=== PATIENT | male | born 1950 | race Caucasian/White ===

== ENCOUNTER 2017-01-21 09:04 | Outpatient (CLI) | payer OTHER ==
[2017-01-21 09:41] LABS: ALBUMIN/GLOBULIN RATIO 1.3 (1.0-2.2); BILIRUBIN,TOTAL 0.6 mg/dL (0.2-1.0); BUN - BLOOD UREA NITROGEN 21 mg/dL (6-20); CALCIUM 8.9 mg/dL (8.5-10.3); CARBON DIOXIDE - CO2 28 mmol/L (21-32); CHLORIDE 107 mmol/L (101-111); CHOL/HDL RATIO 2.5 (<5.0); CHOLESTEROL 97 mg/dL; CREATININE 0.9 mg/dL (0.6-1.2); GFR - MDRD 84 (>89); GLUCOSE 104 mg/dL (70-100); HDL CHOLESTEROL 39 mg/dL; LDL/HDL RATIO 1.1 (<3.6); POTASSIUM 4.3 mmol/L (3.5-5.0); SODIUM 141 mmol/L (135-145); TRIGLYCERIDES 86 mg/dL; VLDL CHOLESTEROL 17 mg/dL
== END 2017-01-21 09:05 | disposition home or self-care (01) ==
LOC: LAB 09:04
PROVIDERS: ATTEND Internal Medicine Cardiovascular Disease
DX: E11.69 Type 2 diabetes mellitus with other specified complication (principal); E78.2 Mixed hyperlipidemia
CPT/HCPCS: 36415; 80053; 80061

== ENCOUNTER 2019-04-24 22:58 | Emergency (ER) | payer MEDICARE, OTHER ==
--- NOTE | 2019-04-24 23:28 | ED Physician Documentation ---
PD HPI MALE - Stated complaint Stated Complaint: CANNOT URITNATE - Chief complaint Chief Complaint: Abd Pain - History obtained from History obtained from: Patient, Family - History of Present Illness Timing - onset: Yesterday (morning of ) Timing - details: Gradual onset, Waxing and waning Associated symptoms: Dysuria, Unable to urinate, Hematuria Similar symptoms before: Has not had sx before Recently seen: Not recently seen - Additional information Additional information: increasing difficulty urinating despite sensation of full bladder/urge to urinate. He initially was able to get very small amounts of bloody urine with bearing down but for past few hours his bladder feels increasingly full and associated with increasing suprapubic pain. Denies h/o urinary retention and denies h/o hematuria Review of Systems Constitutional: reports: Reviewed and negative Eyes: reports: Reviewed and negative Ears: reports: Reviewed and negative Nose: reports: Reviewed and negative Throat: reports: Reviewed and negative Cardiac: reports: Reviewed and negative Respiratory: reports: Reviewed and negative GI: reports: Abdominal Pain (suprapubic pressure). denies: Nausea, Vomiting, Constipation, Diarrhea : reports: Dysuria, Unable to Void, Hematuria Skin: reports: Reviewed and negative Musculoskeletal: reports: Reviewed and negative Neurologic: reports: Reviewed and negative PD PAST MEDICAL HISTORY - Past Medical History Past Medical History: Yes Cardiovascular: Hypertension, High cholesterol, [place] - Past Surgical History Past Surgical History: Yes Cardiovascular: Coronary stent - Present Medications Home Medications: Ambulatory Orders Medication Instructions Recorded Confirmed Aspirin Chewable [St Rodolfo 81 mg PO DAILY 04/24/19 04/24/19 Aspirin] Carvedilol [Coreg] 6.25 mg PO BID 04/24/19 04/24/19 Clopidogrel [Plavix] 75 mg PO DAILY 04/24/19 04/24/19 Lisinopril [Prinivil] 10 mg PO DAILY 04/24/19 04/24/19 Lovastatin 40 mg PO DAILY 04/24/19 04/24/19 - Allergies Allergies/Adverse Reactions: Allergies Allergy/AdvReac Type Severity Reaction Status Date / Time No Known Drug Allergies Allergy Verified 04/24/19 23:05 - Living Situation Living Situation: reports: With family Living Arrangement: reports: At home PD ED PE NORMAL - Vitals Vital signs reviewed: Yes - General General: Alert and oriented X 3, Well developed/nourished, Other (appears uncomfortable) - Cardiac Cardiac: RRR, No murmur - Respiratory Respiratory: No respiratory distress, Clear bilaterally - Abdomen Abdomen: Soft, Other (suprapubic fullness and tenderness) - Back Back: No CVA TTP - Derm Derm: Normal color, Warm and dry - Extremities Extremities: No edema - Neuro Neuro: Alert and oriented X 3 Results - Vitals Vitals: Vital Signs - 24 hr 04/24/19 04/25/19 04/25/19 23:03 01:53 03:41 Temperature 36.9 C 36.6 C 36.8 C Heart Rate 81 72 84 Respiratory 20 18 20 Rate Blood Pressure 176/49 H 163/71 H 124/67 O2 Saturation 97 96 98 04/25/19 05:05 Temperature Heart Rate 80 Respiratory 16 Rate Blood Pressure 124/75 O2 Saturation 98 Oxygen O2 Source Room air - Labs Labs: Laboratory Tests 04/24/19 04/24/19 04/24/19 23:35 23:59 23:59 WBC 10.2 RBC 4.31 L Hgb 12.9 L Hct 38.7 L MCV 89.8 MCH 29.9 MCHC 33.3 RDW 13.3 Plt Count 164 MPV 10.0 Neut # (Auto) 8.8 H Lymph # (Auto) 0.5 L [place] # (Auto) 0.8 Eos # (Auto) 0.1 Baso # (Auto) 0.0 Absolute Nucleated RBC 0.00 Nucleated RBC % 0.0 PT 14.3 H INR 1.3 H APTT 28.5 Sodium Potassium Chloride Carbon Dioxide Anion Gap BUN Creatinine Estimated GFR (MDRD) Glucose Calcium Total Bilirubin AST ALT Alkaline Phosphatase Total Protein Albumin Globulin Albumin/Globulin Ratio Lipase Urine Color RED/BLOODY Urine Clarity BLOODY Urine pH Ur Specific [place] Urine Protein Urine Glucose (UA) NEGATIVE Urine Ketones Urine Occult Blood LARGE H Urine Nitrite POSITIVE H Urine Bilirubin NEGATIVE Urine Urobilinogen Ur Leukocyte Esterase MODERATE H Urine RBC TNTC H Urine WBC 6-10 H Ur Squamous Epith Cells FEW Squamous Urine Bacteria Few Ur Microscopic Review INDICATED Urine Culture Comments INDICATED 04/24/19 23:59 WBC RBC Hgb Hct MCV MCH MCHC RDW Plt Count MPV Neut # (Auto) Lymph # (Auto) [place] # (Auto) Eos # (Auto) Baso # (Auto) Absolute Nucleated RBC Nucleated RBC % PT INR APTT Sodium 137 Potassium 4.3 Chloride 103 Carbon Dioxide 25 Anion Gap 9.0 BUN 30 H Creatinine 1.5 H Estimated GFR (MDRD) 46 L Glucose 143 H Calcium 9.0 Total Bilirubin 0.7 AST 20 ALT 27 Alkaline Phosphatase 67 Total Protein 7.5 Albumin 3.6 Globulin 3.9 Albumin/Globulin Ratio 0.9 L Lipase 27 Urine Color Urine Clarity Urine pH Ur Specific [place] Urine Protein Urine Glucose (UA) Urine Ketones Urine Occult Blood Urine Nitrite Urine Bilirubin Urine Urobilinogen Ur Leukocyte Esterase Urine RBC Urine WBC Ur Squamous Epith Cells Urine Bacteria Ur Microscopic Review Urine Culture Comments PD MEDICAL DECISION MAKING - ED course Complexity details: reviewed results, re-evaluated patient, considered differential, d/w patient, d/w family ED course: RN placed 16 Fr. de jesus catheter, over 300 cc grossly bloody output with clots. This resulted in relief of patient's discomfort. The RN then hand-irrigated with Leslie syringe nearly 1 liter, as the output was not getting any clearer (still bloody to the point of being opaque, and with many clots). Towards the end of the liter of irrigation, there was no output despite fluid being irrigated in, and this resulted in return of patient's suprapubic pain and fullness. The catheter was then removed and replaced with a 22 Fr. 3-way catheter. Unfortunately, there was again the ability to instill fluid in but no output, even when the outflow port was flushed several times (with same result: fluid would go in but not come out; at one point, there was fluid return from the in port and thus relief of symptoms). I d/w Dr. 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 Dr. Gregg accepts as long as I discuss the case with the ur ologist at [facility] to confirm that the urology group agrees transfer is appropriate. I d/w Dr. Gray (urology online journalist), and he agrees patient is appropriate for transfer to [facility]/[place]. Shortly before transfer, there was suddenly output through the 3-way catheter and thus CBI was tenuously started; it seemed to intermittently stop flowing out and thus CBI maintained at low flow and patient instructed to inform staff immediately if he feels any significant pain/pressure (he understands there will be sensation of full bladder due to the nature of CBI). Of note, the output did not appear to be clearing. As medics were preparing to take patient, patient had sudden worsening of suprapubic pain and thus given 1 mg IV dilaudid. The nurse informed me that there appeared to be slowing of output despite same rate of inflow CBI and thus I instructed her to stop the CBI Departure - Departure Disposition: 02 Transfer Acute Care Hosp Clinical Impression: Urinary retention Hematuria Qualifiers: Hematuria type: gross Qualified Code(s): R31.0 - Gross hematuria Condition: Good Discharge Date/Time: 04/25/19 05:06
[2019-04-24 23:50] LABS: BILIRUBIN,URINE NEGATIVE (NEGATIVE); GLUCOSE, URINE (UA) NEGATIVE (NEGATIVE); LEUKOCYTE ESTERASE, URINE MODERATE (NEGATIVE); NITRITE,URINE POSITIVE (NEGATIVE); OCCULT BLOOD,URINE LARGE (NEGATIVE)
[2019-04-24 23:53] LABS: CLARITY,URINE BLOODY (CLEAR)
[2019-04-24 23:55] LABS: BACTERIA,URINE Few /HPF (None Seen); RBC,URINE TNTC /HPF (0-5); SQUAMOUS EPITHELIAL CELL,UR FEW Squamous (<= Few)
[2019-04-25 00:10] LABS: BASOPHILS % (AUTO) 0.2 %; EOSINOPHILS # (AUTO) 0.1 10^3/uL (0.0-0.7); EOSINOPHILS % (AUTO) 0.9 %; HGB - HEMOGLOBIN 12.9 g/dL (14.0-18.0); LYMPHOCYTES # (AUTO) 0.5 10^3/uL (1.5-3.5); MEAN CORPUSCULAR HEMOGLOBIN 29.9 pg (27.0-31.0); MEAN CORPUSCULAR HGB CONC 33.3 g/dL (32.0-36.0); MEAN CORPUSCULAR VOLUME 89.8 fL (80.0-94.0); MONOCYTES # (AUTO) 0.8 10^3/uL (0.0-1.0); MONOCYTES % (AUTO) 7.5 %; NEUTROPHILS # (AUTO) 8.8 10^3/uL (1.5-6.6); NEUTROPHILS % (AUTO) 85.9 %; PLT - PLATELET COUNT 164 10^3/uL (130-450); RED BLOOD COUNT 4.31 10^6/uL (4.70-6.10); RED CELL DISTRIBUTION WIDTH 13.3 % (12.0-15.0); WHITE BLOOD COUNT 10.2 x10^3/uL (4.8-10.8)
[2019-04-25 00:16] LABS: INR 1.3 (0.8-1.2); PT - PROTHROMBIN TIME 14.3 secs (9.9-12.6)
[2019-04-25 00:23] LABS: ALBUMIN 3.6 g/dL (3.2-5.5); ALBUMIN/GLOBULIN RATIO 0.9 (1.0-2.2); BILIRUBIN,TOTAL 0.7 mg/dL (0.2-1.0); CREATININE 1.5 mg/dL (0.6-1.2); TOTAL PROTEIN 7.5 g/dL (6.7-8.2)
[2019-04-25 00:24] LABS: PARTIAL THROMBOPLASTIN TIME 28.5 secs (24.9-33.3)
[2019-04-25] MEDS ORDERED: LIDOCAINE 2% URO-JET 5 ML SYRINGE UR STA ×2 (00:53→00:55)
[2019-04-25] MEDS ORDERED: HYDROmorphone 1 MG/ML CARPUJECT IVP STA (04:43)
[2019-04-25 05:06] VITALS: BP 124/75
== END 2019-04-25 05:06 | disposition short-term general hospital (02) ==
LOC: ED 22:58
DX: R33.9 Retention of urine, unspecified (principal); R31.0 Gross hematuria; I10 Essential (primary) hypertension
CPT/HCPCS: 36415; 51702; 51798; 80053; 81001; 83690; 85025; 85610; 85730; 87086; 87181; 96374; 99283; 99285; J1170; 81003

== ENCOUNTER 2020-03-17 08:40 | Outpatient (CLI) | payer MEDICARE, OTHER ==
[2020-03-17 09:11] LABS: CHOL/HDL RATIO 2.4 (<5.0); CHOLESTEROL 111 mg/dL; HDL CHOLESTEROL 46 mg/dL; LDL CHOLESTEROL,CALCULATED 47 mg/dL; VLDL CHOLESTEROL 18 mg/dL
[2020-03-17 09:18] LABS: ALBUMIN/GLOBULIN RATIO 0.9 (1.0-2.2); BILIRUBIN,TOTAL 0.6 mg/dL (0.2-1.0); CALCIUM 8.2 mg/dL (8.5-10.3); CREATININE 1.5 mg/dL (0.6-1.2); TOTAL PROTEIN 6.3 g/dL (6.7-8.2)
[2020-03-17 09:23] LABS: THYROID STIMULATING HORMONE 3.2 uIU/mL (0.34-5.60)
[2020-03-17 09:25] LABS: FREE T4 (FREE THYROXINE) 1.27 ng/dL (0.58-1.64)
== END 2020-03-17 08:41 | disposition home or self-care (01) ==
LOC: LAB 08:40
PROVIDERS: ATTEND Internal Medicine Cardiovascular Disease
DX: I25.10 Atherosclerotic heart disease of native coronary artery without angina pectoris (principal); Z79.899 Other long term (current) drug therapy
CPT/HCPCS: 36415; 80053; 80061; 83721; 84439; 84443

== ENCOUNTER 2020-05-08 08:25 | Outpatient (CLI) | payer MEDICARE, OTHER ==
[2020-05-08 08:45] LABS: ALBUMIN 3.5 g/dL (3.2-5.5); BILIRUBIN,TOTAL 0.7 mg/dL (0.2-1.0); CREATININE 1.6 mg/dL (0.6-1.2); TOTAL PROTEIN 6.9 g/dL (6.7-8.2)
== END 2020-05-08 08:26 | disposition home or self-care (01) ==
LOC: LAB 08:25
PROVIDERS: ATTEND Internal Medicine Cardiovascular Disease
DX: I48.0 Paroxysmal atrial fibrillation (principal)
CPT/HCPCS: 36415; 80053

== ENCOUNTER 2020-07-05 09:30 | Outpatient (CLI) | payer MEDICARE, OTHER | END 2020-07-05 09:31 | disposition home or self-care (01) | LOC: RT 09:30 | PROVIDERS: ATTEND Physician Assistant | DX: Z79.899 Other long term (current) drug therapy (principal) | CPT/HCPCS: 94010; 94729 ==

== ENCOUNTER 2020-09-19 08:00 | Outpatient (CLI) | payer MEDICARE, OTHER ==
[2020-09-19 09:09] LABS: BASOPHILS % (AUTO) 0.2 %; EOSINOPHILS # (AUTO) 0.3 10^3/uL (0.0-0.7); EOSINOPHILS % (AUTO) 3.3 %; HGB - HEMOGLOBIN 11.8 g/dL (14.0-18.0); LYMPHOCYTES % (AUTO) 11.7 %; MEAN CORPUSCULAR HEMOGLOBIN 27.6 pg (27.0-31.0); MEAN CORPUSCULAR HGB CONC 31.1 g/dL (32.0-36.0); MEAN PLATELET VOLUME 10.3 fL (7.4-11.4); MONOCYTES # (AUTO) 0.8 10^3/uL (0.0-1.0); MONOCYTES % (AUTO) 9.5 %; NEUTROPHILS # (AUTO) 6.3 10^3/uL (1.5-6.6); NEUTROPHILS % (AUTO) 74.9 %; PLT - PLATELET COUNT 145 10^3/uL (130-450); RED BLOOD COUNT 4.27 10^6/uL (4.70-6.10); RED CELL DISTRIBUTION WIDTH 14.3 % (12.0-15.0); WHITE BLOOD COUNT 8.4 x10^3/uL (4.8-10.8)
[2020-09-19 09:22] LABS: ALBUMIN 3.2 g/dL (3.2-5.5); ALBUMIN/GLOBULIN RATIO 0.9 (1.0-2.2); ALKALINE PHOSPHATASE 70 IU/L (42-121); ALT ALANINE AMINOTRANSFERASE 52 IU/L (10-60); AST ASPARTATE AMINOTRANSFERASE 37 IU/L (10-42); BILIRUBIN,TOTAL 0.6 mg/dL (0.2-1.0); BUN - BLOOD UREA NITROGEN 21 mg/dL (6-20); CALCIUM 8.6 mg/dL (8.5-10.3); CARBON DIOXIDE - CO2 25 mmol/L (21-32); CHLORIDE 105 mmol/L (101-111); CHOL/HDL RATIO 2.2 (<5.0); CHOLESTEROL 92 mg/dL; CREATININE 1.4 mg/dL (0.6-1.2); GLUCOSE 108 mg/dL (70-100); HDL CHOLESTEROL 41 mg/dL; LDL CHOLESTEROL,CALCULATED 38 mg/dL; LDL/HDL RATIO 0.9 (<3.6); TOTAL PROTEIN 6.8 g/dL (6.7-8.2); VLDL CHOLESTEROL 13 mg/dL
[2020-09-19 09:32] LABS: THYROID STIMULATING HORMONE 2.75 uIU/mL (0.34-5.60)
[2020-09-19 09:34] LABS: FREE T4 (FREE THYROXINE) 1.43 ng/dL (0.58-1.64)
== END 2020-09-19 23:59 | disposition home or self-care (01) ==
LOC: LAB 08:00
PROVIDERS: ATTEND Internal Medicine Cardiovascular Disease
DX: Z13.6 Encounter for screening for cardiovascular disorders (principal); Z79.899 Other long term (current) drug therapy
CPT/HCPCS: 36415; 80053; 80061; 83721; 84439; 84443; 85025

== ENCOUNTER 2020-10-28 16:11 | Emergency (ER) | payer MEDICARE, OTHER ==
[2020-10-28] MEDS ORDERED: HYDROmorphone 1 MG/ML CARPUJECT IVP STA ×3 (16:51→20:35)
[2020-10-28] MEDS ORDERED: SODIUM CHLORIDE 0.9% 1,000 ML IV STA (16:52)
--- NOTE | 2020-10-28 16:54 | ED Physician Documentation ---
History of Present Illness - Stated complaint Stated Complaint: M - Chief complaint Chief Complaint: Abd Pain - Additonal information Additional information: 70-year-old male presents the emergency department for evaluation of dysuria and hematuria for 48 hours. He does report a history of prostate problems and is currently on Flomax. Also anticoagulated on Eliquis secondary to history of atrial fibrillation. Reports that 2 days ago he noticed blood when he was urinating followed shortly by dysuria. He states he is only ever had this with urinary tract infections in the past. Review of Systems Constitutional: denies: Fever, Chills Eyes: reports: Reviewed and negative Ears: reports: Reviewed and negative Nose: reports: Reviewed and negative Throat: reports: Reviewed and negative Cardiac: reports: Reviewed and negative Respiratory: reports: Reviewed and negative GI: reports: Reviewed and negative : reports: Dysuria, Frequency, Hesitancy, Unable to Void, Hematuria Skin: reports: Reviewed and negative PD PAST MEDICAL HISTORY - Past Medical History Cardiovascular: Hypertension, High cholesterol, [place] - Past Surgical History Past Surgical History: Yes Cardiovascular: Coronary stent - Present Medications Home Medications: Ambulatory Orders Medication Instructions Recorded Confirmed Aspirin Chewable [St Rodolfo 81 mg PO DAILY 04/24/19 05/07/19 Aspirin] Lisinopril [Prinivil] 5 mg PO BID 04/24/19 05/07/19 Acetaminophen 1,000 mg PO DAILY PRN 05/07/19 05/07/19 Amiodarone [Pacerone] 200 mg PO BID 05/07/19 05/07/19 Apixaban [Eliquis] 5 mg PO BID 05/07/19 05/07/19 Carvedilol [Coreg] 25 mg PO BID 05/07/19 05/07/19 Furosemide [Lasix] 40 mg PO DAILY 05/07/19 05/07/19 Glucos Sul 2Kcl/MSM/Chond/C/Mn 500 mg PO BID 05/07/19 05/07/19 [Glucosamine Chondroitin Cap] Rosuvastatin Calcium [Crestor] 40 mg PO DAILY 05/07/19 05/07/19 Spironolactone [Aldactone] 25 mg PO DAILY 05/07/19 05/07/19 Tamsulosin [Flomax] 0.4 mg PO DAILY 05/07/19 05/07/19 cephALEXin [Keflex] 500 mg PO Q6H #40 10/28/20 - Allergies Allergies/Adverse Reactions: Allergies Allergy/AdvReac Type Severity Reaction Status Date / Time No Known Drug Allergies Allergy Verified 10/28/20 16:21 - Social History Does the pt smoke?: No Smoking Status: Former smoker Does the pt drink ETOH?: Yes Does the pt have substance abuse?: No - Immunizations Immunizations are current?: Yes PD ED PE EXPANDED - General General: Alert, In Pain - Neck Neck: Supple w/out meningeal sx. No: Adenopathy - Cardiac Cardiac: Irregularly irregular, Radial strong equal, Pedal strong equal, Cap refill < 2 sec. No: Murmur Present - Respiratory Respiratory: Clear to ausultation alexandre. No: Distress, Labored - Abdomen Abdomen: Normal Bowel sounds, Tender to palpation (Suprapubic tenderness with guarding. No rebound) - Male Male : Other (Uncircumcised male. Large amount of blood seen exiting the meatus.) - Extremities Extremities: Normal. No: Deformity, Tenderness - Neuro Neuro: Alert and Oriented X 3, CNII-XII intact - GCS Eye Opening: Spontaneous Motor: Obeys Commands Verbal: Oriented Total: 15 Results - Vitals Vitals: Vital Signs - 24 hr 10/28/20 10/28/20 10/28/20 16:21 17:26 18:24 Temperature 37.4 C Heart Rate 68 72 58 L Respiratory 24 18 18 Rate Blood Pressure 149/66 H O2 Saturation 98 99 99 10/28/20 20:55 Temperature 36.7 C Heart Rate 57 L Respiratory 16 Rate Blood Pressure 170/78 H O2 Saturation 96 Oxygen O2 Source Room air - EKG (time done) 1838 Rate: Rate (enter#) (55) Rhythm: NSR [place]: Normal Intervals: Normal [place] QRS: Normal Ischemia: Q waves (anterior leads) - Labs Labs: Laboratory Tests 10/28/20 10/28/20 10/28/20 16:20 16:50 16:50 WBC 12.8 H RBC 4.41 L Hgb 11.7 L Hct 37.5 L MCV 85.0 MCH 26.5 L MCHC 31.2 L RDW 14.6 Plt Count 227 MPV 10.8 Neut # (Auto) 10.1 H Lymph # (Auto) 1.4 L [place] # (Auto) 1.0 Eos # (Auto) 0.1 Baso # (Auto) 0.0 Absolute Nucleated RBC 0.00 Nucleated RBC % 0.0 Sodium 133 L Potassium 5.6 H Chloride 99 L Carbon Dioxide 23 Anion Gap 11.0 BUN 23 H Creatinine 1.6 H Estimated GFR (MDRD) 43 L Glucose 150 H Calcium 9.1 Total Bilirubin 1.1 H AST 45 H ALT 49 Alkaline Phosphatase 71 Total Protein 7.5 Albumin 3.7 Globulin 3.8 Albumin/Globulin Ratio 1.0 Lipase 32 Urine Color RED/BLOODY Urine Clarity BLOODY Urine pH 7.5 Ur Specific [place] 1.015 Urine Protein >=300 H Urine Glucose (UA) 250 H Urine Ketones 15 H Urine Occult Blood LARGE H Urine Nitrite POSITIVE H Urine Bilirubin NEGATIVE Urine Urobilinogen 1 (NORMAL) Ur Leukocyte Esterase SMALL H Urine RBC TNTC H Urine WBC 6-10 H Ur Squamous Epith Cells NONE SEEN Urine Bacteria None Seen Ur Microscopic Review INDICATED Urine Culture Comments INDICATED PD MEDICAL DECISION MAKING - ED course Complexity details: reviewed results, re-evaluated patient, considered differential, d/w patient, d/w admissions consultant ([facility]) ED course: 70-year-old male presents the emergency department for 2 days of hematuria and dysuria. He does have a history of prostate enlargement and does take Flomax. On screening labs he does have a moderate leukocytosis but no fevers. His urine is most consistent with an infection nitrite positive. Patient was given 1 g of ceftriaxone here in the emergency department. He has noted baseline renal insufficiency which is not changed. Patient presented unable to urinate and dribbling very small amounts of bloody urine. I did ask the nurses to place a De Jesus catheter and if he had more than [address] a De Jesus bag on him. Unfortunately nursing staff was only able to initially place a 10 [place] De Jesus. We did attempt to irrigate this De Jesus without success. Therefore I did go to the bedside and place a 16 [place]ym[place] coud catheter. Following this I was able to adequately irrigate the De Jesus retrieving a large amount of clot. After irrigation I did note more krunal-colored urine versus frankly bloody. We did do a CT of the abdomen that does show a large amount of debris in the bladder with inflammatory changes. There is also some associated bilateral hydroureter and hydronephrosis.. This was also discussed with Dr. Gray the patients urologist. Pt did not require transfer if we were able to get the de jesus to adequately drain following irrigation I spoke with [facility] hospitalist Dr. Hale. I Discussed that this gentleman has a De Jesus catheter that will need to be irrigated frequently. However he did not feel the patient was appropriate for admission for bladder irrigation. The patient will be discharged with a prescription for cephalexin. He has received a total of 2 g ceftriaxone here in the emergency department. The patient reports to the nursing staff and this provider that he has irrigated his De Jesus's at home in the past and feels comfortable doing so, therefore we will send him home with appropriate irrigation supplies. However should he reobstruct he is to return immediately to the ER Departure - Departure Disposition: Home, Self Care Clinical Impression: Urinary obstruction UTI (urinary tract infection) Qualifiers: Urinary tract infection type: acute cystitis Hematuria presence: with hematuria Qualified Code(s): N30.01 - Acute cystitis with hematuria Condition: Stable Record reviewed to determine appropriate education?: Yes Instructions: ED Infec Bladder Cystitis Male Ch, Leg Bag Care Dc, Catheter Indwelling Urinary Dc Follow-Up: FLORIAN GRAY MD [Physician No Access] - Latanya Ferguson PA-C [Primary Care Provider] - Prescriptions: cephALEXin [Keflex] 500 mg PO Q6H #40 Comments: Milad you do have an infection in your urine. This is the most likely cause of your blood urine. Please fill the prescription for the keflex and begin taking tomorrow 4X a day for 10 days You are at risk to have yoru de jesus re-obstruct due to the blood. Please flush and irrigate your de jesus every 1-2 hours. IF you find that you can not flush ir or it stops draining, return immediately to the ED Please call your urologist Dr. Gray and request follow-up to be seen later this week. As the infection and bloody urine begins to resolve we can consider taking the De Jesus catheter out. At any point you find you are having worsening symptoms, any fevers uncontrolled pain or you feel that your symptoms are not managed well please return immediately to the ER
[2020-10-28 16:56] LABS: BASOPHILS % (AUTO) 0.2 %; EOSINOPHILS # (AUTO) 0.1 10^3/uL (0.0-0.7); EOSINOPHILS % (AUTO) 0.8 %; HCT - HEMATOCRIT 37.5 % (42.0-52.0); HGB - HEMOGLOBIN 11.7 g/dL (14.0-18.0); LYMPHOCYTES # (AUTO) 1.4 10^3/uL (1.5-3.5); LYMPHOCYTES % (AUTO) 11.1 %; MEAN CORPUSCULAR HEMOGLOBIN 26.5 pg (27.0-31.0); MEAN CORPUSCULAR HGB CONC 31.2 g/dL (32.0-36.0); MEAN PLATELET VOLUME 10.8 fL (7.4-11.4); MONOCYTES % (AUTO) 7.9 %; NEUTROPHILS # (AUTO) 10.1 10^3/uL (1.5-6.6); NEUTROPHILS % (AUTO) 79.6 %; PLT - PLATELET COUNT 227 10^3/uL (130-450); RED BLOOD COUNT 4.41 10^6/uL (4.70-6.10); RED CELL DISTRIBUTION WIDTH 14.6 % (12.0-15.0); WHITE BLOOD COUNT 12.8 x10^3/uL (4.8-10.8)
[2020-10-28 17:01] LABS: BILIRUBIN,URINE NEGATIVE (NEGATIVE); GLUCOSE, URINE (UA) 250 mg/dL (NEGATIVE); KETONES,URINE (UA) 15 mg/dL (NEGATIVE); LEUKOCYTE ESTERASE, URINE SMALL (NEGATIVE); NITRITE,URINE POSITIVE (NEGATIVE); OCCULT BLOOD,URINE LARGE (NEGATIVE); PH,URINE 7.5 PH (5.0-7.5); PROTEIN,URINE >=300 mg/dL (NEGATIVE); UROBILINOGEN,URINE 1 (NORMAL) E.U./dL (NORMAL)
[2020-10-28 17:05] LABS: CLARITY,URINE BLOODY (CLEAR); RBC,URINE TNTC /HPF (0-5)
[2020-10-28 17:06] LABS: BACTERIA,URINE None Seen /HPF (None Seen); SQUAMOUS EPITHELIAL CELL,UR NONE SEEN (<= Few)
[2020-10-28 17:11] LABS: ALBUMIN 3.7 g/dL (3.2-5.5); BILIRUBIN,TOTAL 1.1 mg/dL (0.2-1.0); CALCIUM 9.1 mg/dL (8.5-10.3); CREATININE 1.6 mg/dL (0.6-1.2); POTASSIUM 5.6 mmol/L (3.5-5.0); TOTAL PROTEIN 7.5 g/dL (6.7-8.2)
[2020-10-28] MEDS ORDERED: cefTRIAXone 1 GM VIAL IVP STA ×2 (17:11→21:33)
[2020-10-28] MEDS ORDERED: PHENAZOPYRIDINE 100 MG TABLET PO STA (17:11)
[2020-10-28] MEDS ORDERED: FUROSEMIDE 20 MG/2 ML VIAL IVP STA (18:04)
[2020-10-28] MEDS ORDERED: IOVERSOL 320 100 ML VIAL IVP ONE ×2 (18:45→19:52)
--- NOTE | 2020-10-28 20:08 | CT Report ---
PROCEDURE: Abdomen/Pelvis W INDICATIONS: UTI CONTRAST: IV CONTRAST: Optiray 320 ml: 100 PO CONTRAST: *NO PO CONTRAST TECHNIQUE: After the administration of IV contrast, 5 mm thick sections acquired from the diaphragms to the symp hysis. 5 mm thick coronal and sagittal reformats were acquired. For radiation dose reduction, the f ollowing was used: automated exposure control, adjustment of mA and/or kV according to patient size. COMPARISON: None. FINDINGS: Image quality: Excellent. ABDOMEN: Lung bases: Lung bases are clear. Heart size is normal. Coronary artery calcifications are present . Solid organs: Liver and spleen are normal in size and enhancement. Gallbladder negative Biliary sy stem is non dilated. Pancreas enhances normally. No adrenal nodules. There is mild bilateral hydroureteronephrosis. No definite urolithiasis is seen and this is likely re lated to large amount of soft tissue/increased attenuation within the lumen of the bladder. Peritoneum and bowel: Bowel loops demonstrate normal wall thickness and caliber. No free fluid or a ir. Colonic diverticulosis incidentally noted without evidence of acute inflammation. Normal appendi x. Nodes and vessels: No retroperitoneal or mesenteric adenopathy by size criteria. Aorta and inferior vena cava are normal in size. Miscellaneous: No ventral hernias. PELVIS: A Rivera catheter is present. There is mild inflammatory fat stranding adjacent to the bladder. Miscel laneous: No inguinal hernias or adenopathy. Bones: No suspicious bony lesions. No vertebral body compression fractures. IMPRESSION: Large amount of increase/soft tissue attenuation involving the bladder lumen which could represent la rge amount of intraluminal clot however, cannot exclude underlying soft tissue mass. This likely acco unts for the mild bilateral symmetric appearing hydroureteronephrosis. Recommend correlation to urina lysis data to exclude underlying infection, and follow-up with cystoscopy as needed to assess for rose dder malignancy. Additional chronic and incidental findings as above. Reviewed by: Emir Pop MD on 10/28/2020 8:06 PM PST Approved by: Emir Pop MD on 10/28/2020 8:06 PM PST Station ID: [id number]
[2020-10-28] MEDS ORDERED: LIDOCAINE 2% URO-JET 5 ML SYRINGE UR STA (20:54)
[2020-10-28] MEDS ORDERED: HYDROcod/ACET 5/325 Prepack 4 PO STA (22:27)
[2020-10-28 22:35] VITALS: BP 137/51
== END 2020-10-28 22:51 | disposition home or self-care (01) ==
LOC: ED 16:11
DX: N30.01 Acute cystitis with hematuria (principal); N13.8 Other obstructive and reflux uropathy; N13.30 Unspecified hydronephrosis; N32.89 Other specified disorders of bladder; N40.1 Benign prostatic hyperplasia with lower urinary tract symptoms; R39.11 Hesitancy of micturition; N28.9 Disorder of kidney and ureter, unspecified; I48.91 Unspecified atrial fibrillation; Z79.01 Long term (current) use of anticoagulants; Z79.82 Long term (current) use of aspirin; I10 Essential (primary) hypertension; Z87.891 Personal history of nicotine dependence
CPT/HCPCS: 51700; 51798; 74177; 80053; 81001; 83690; 85025; 87086; 93005; 96361; 96374; 96375; 96376; 99283; 99285; A9270; J1170; Q9967; 81003

== ENCOUNTER 2020-11-09 09:43 | Emergency (ER) | payer MEDICARE, OTHER ==
--- NOTE | 2020-11-09 10:24 | ED Physician Documentation ---
History of Present Illness - Stated complaint Stated Complaint: CATH REMOVAL - Chief complaint Chief Complaint: General - History obtained from History obtained from: Patient - Additonal information Additional information: Patient comes emergency department chief complaint of wanting to have his Rivera catheter removed. Patient has a history of BPH, and was diagnosed with a urinary tract infection on October 28. He was given a dose of Rocephin here in the emergency department and prescribed oral antibiotics for home. Patient was having significant clotting and urinary retention on that day, so a Rivera catheter was also placed at that time. Patient states that for the first few days, he had bloody urine, but that as he progressed on his course of antibiotics, this resolved. Patient states that he is feeling great now. He denies abdominal pain, back pain, fevers, chills, or clots in his urine. He states his urine had been clear until he spent 2 hours on a Zoom call yesterday and had a show of blood after that. Patient states that is clearing up, however. He is on Eliquis for history of coronary artery disease/angioplasty, as well as A. fib. He denies any other complaints at this time. He has not seen his urologist since his last visit to the emergency department. Review of Systems Ten Systems: 10 systems reviewed and negative Constitutional: reports: Reviewed and negative Eyes: reports: Reviewed and negative Ears: reports: Reviewed and negative Nose: reports: Reviewed and negative Throat: reports: Reviewed and negative Cardiac: reports: Reviewed and negative Respiratory: reports: Reviewed and negative GI: reports: Reviewed and negative : reports: Reviewed and negative Skin: reports: Reviewed and negative Musculoskeletal: reports: Reviewed and negative Neurologic: reports: Reviewed and negative Psychiatric: reports: Reviewed and negative Endocrine: reports: Reviewed and negative Immunocompromised: reports: Reviewed and negative PD PAST MEDICAL HISTORY - Past Medical History Past Medical History: Yes Cardiovascular: Hypertension, High cholesterol, [place] - Past Surgical History Past Surgical History: Yes Cardiovascular: Coronary stent - Present Medications Home Medications: Ambulatory Orders Medication Instructions Recorded Confirmed Aspirin Chewable [St Rodolfo 81 mg PO DAILY 04/24/19 11/09/20 Aspirin] Lisinopril [Prinivil] 5 mg PO BID 04/24/19 11/09/20 Acetaminophen 1,000 mg PO DAILY PRN 05/07/19 11/09/20 Amiodarone [Pacerone] 100 mg PO DAILY 05/07/19 11/09/20 Apixaban [Eliquis] 5 mg PO BID 05/07/19 11/09/20 Carvedilol [Coreg] 25 mg PO BID 05/07/19 11/09/20 Glucos Sul 2Kcl/MSM/Chond/C/Mn 500 mg PO BID 05/07/19 11/09/20 [Glucosamine Chondroitin Cap] Rosuvastatin Calcium [Crestor] 40 mg PO DAILY 05/07/19 11/09/20 Spironolactone [Aldactone] 25 mg PO DAILY 05/07/19 05/07/19 Tamsulosin [Flomax] 0.4 mg PO DAILY 05/07/19 11/09/20 - Allergies Allergies/Adverse Reactions: Allergies Allergy/AdvReac Type Severity Reaction Status Date / Time No Known Drug Allergies Allergy Verified 11/09/20 09:47 - Social History Does the pt smoke?: No Smoking Status: Never smoker Does the pt drink ETOH?: Yes Does the pt have substance abuse?: No - Immunizations Immunizations are current?: Yes PD ED PE NORMAL - Vitals Vital signs reviewed: Yes - General General: Alert and oriented X 3, No acute distress - HEENT HEENT: Atraumatic, PERRL, EOMI, Moist mucous membranes - Neck Neck: Supple, no meningeal sign - Cardiac Cardiac: RRR, No murmur, Strong equal pulses - Respiratory Respiratory: No respiratory distress, Clear bilaterally - Abdomen Abdomen: Soft, Non tender, Non distended - Male Male : Other (Rivera catheter in place. Mildly blood-tinged, but otherwise clear urine noted in bag.) - Derm Derm: Normal color, Warm and dry, No rash - Extremities Extremities: No deformity - Neuro Neuro: Alert and oriented X 3 - Psych Psych: Normal mood, Normal affect Results - Vitals Vitals: Vital Signs - 24 hr 11/09/20 09:47 Temperature 36 C L Heart Rate 60 Respiratory 18 Rate Blood Pressure 126/45 L O2 Saturation 99 Oxygen O2 Source Room air PD MEDICAL DECISION MAKING - ED course Complexity details: considered differential, d/w patient ED course: Rivera catheter was removed by nursing staff without difficulty. I discussed with the patient that for further concerns regarding his prostate, he should follow-up with his urologist. We have discussed the usual indications for return. Departure - Departure Disposition: 01 Home, Self Care Clinical Impression: Encounter for Rivera catheter removal Condition: Stable Instructions: ED Retention Urinary Male
[2020-11-09 10:33] VITALS: BP 121/70
== END 2020-11-09 10:30 | disposition home or self-care (01) ==
LOC: ED 09:43
DX: Z46.6 Encounter for fitting and adjustment of urinary device (principal); N40.1 Benign prostatic hyperplasia with lower urinary tract symptoms; R33.8 Other retention of urine; I48.91 Unspecified atrial fibrillation; I25.10 Atherosclerotic heart disease of native coronary artery without angina pectoris; Z95.5 Presence of coronary angioplasty implant and graft; Z79.01 Long term (current) use of anticoagulants; Z79.82 Long term (current) use of aspirin; I10 Essential (primary) hypertension
CPT/HCPCS: 99281; 99282

== ENCOUNTER 2020-11-24 09:44 | Outpatient (CLI) | payer MEDICARE, OTHER ==
[2020-11-24 10:39] LABS: CALCIUM 8.5 mg/dL (8.5-10.3); CREATININE 1.7 mg/dL (0.6-1.2)
== END 2020-11-24 09:45 | disposition home or self-care (01) ==
LOC: LAB 09:44
PROVIDERS: ATTEND Internal Medicine Cardiovascular Disease
DX: N28.9 Disorder of kidney and ureter, unspecified (principal)
CPT/HCPCS: 36415; 80048

== ENCOUNTER 2020-11-27 12:23 | Outpatient (CLI) | payer MEDICARE, OTHER ==
[2020-11-27 12:41] LABS: BILIRUBIN,URINE NEGATIVE (NEGATIVE); GLUCOSE, URINE (UA) NEGATIVE (NEGATIVE); KETONES,URINE (UA) NEGATIVE (NEGATIVE); LEUKOCYTE ESTERASE, URINE LARGE (NEGATIVE); NITRITE,URINE NEGATIVE (NEGATIVE); OCCULT BLOOD,URINE LARGE (NEGATIVE); PROTEIN,URINE 100 mg/dL (NEGATIVE); UROBILINOGEN,URINE 0.2 (NORMAL) E.U./dL (NORMAL)
[2020-11-27 12:43] LABS: CLARITY,URINE SL. CLOUDY (CLEAR)
[2020-11-27 12:47] LABS: BACTERIA,URINE Few /HPF (None Seen); RBC,URINE TNTC /HPF (0-5); SQUAMOUS EPITHELIAL CELL,UR FEW Squamous (<= Few); WBC,URINE >25 /HPF (0-3)
[2020-11-27 12:59] LABS: ALBUMIN 3.1 g/dL (3.2-5.5); ALBUMIN/GLOBULIN RATIO 0.9 (1.0-2.2); BILIRUBIN,TOTAL 0.5 mg/dL (0.2-1.0); CALCIUM 8.5 mg/dL (8.5-10.3); CREATININE 1.8 mg/dL (0.6-1.2); POTASSIUM 4.1 mmol/L (3.5-5.0); TOTAL PROTEIN 6.5 g/dL (6.7-8.2)
--- OUTSIDE RECORDS SUMMARY | 2020-12-03 00:57 | EXTERNAL MEDICAL SUMMARY RPT | Continuity of Care Document ---
:1950 Demographics Phone Unavailable Preferred Language Unknown Marital Status Unknown Islam Affiliation Unknown Race Unknown Ethnic Group Unknown Author Organization [facility] Address [address] [place] [address] Phone Social History date description facility [phone]
== END 2020-11-27 12:24 | disposition home or self-care (01) ==
LOC: LAB 12:23
PROVIDERS: ATTEND Physician Assistant Medical
DX: I50.9 Heart failure, unspecified (principal); R60.0 Localized edema; N39.0 Urinary tract infection, site not specified
CPT/HCPCS: 36415; 80053; 81001; 81003; 87077; 87086; 87181

== ENCOUNTER 2020-12-05 09:09 | Outpatient (CLI) | payer MEDICARE, OTHER ==
[2020-12-05 09:53] LABS: BILIRUBIN,URINE NEGATIVE (NEGATIVE); GLUCOSE, URINE (UA) NEGATIVE (NEGATIVE); KETONES,URINE (UA) NEGATIVE (NEGATIVE); LEUKOCYTE ESTERASE, URINE MODERATE (NEGATIVE); NITRITE,URINE NEGATIVE (NEGATIVE); OCCULT BLOOD,URINE LARGE (NEGATIVE); PH,URINE 6.5 PH (5.0-7.5); PROTEIN,URINE 100 mg/dL (NEGATIVE); UROBILINOGEN,URINE 1 (NORMAL) E.U./dL (NORMAL)
[2020-12-05 09:54] LABS: BACTERIA,URINE Few /HPF (None Seen); CLARITY,URINE BLOODY (CLEAR); RBC,URINE TNTC /HPF (0-5); SQUAMOUS EPITHELIAL CELL,UR FEW Squamous (<= Few); WBC,URINE >25 /HPF (0-3)
== END 2020-12-05 09:10 | disposition home or self-care (01) ==
LOC: LAB 09:09
PROVIDERS: ATTEND Family Medicine
DX: R30.0 Dysuria (principal)
CPT/HCPCS: 81001; 81003; 87086; 87181

== ENCOUNTER 2021-01-17 09:31 | Outpatient (CLI) | payer MEDICARE, OTHER ==
[2021-01-17 10:40] LABS: PSA FREE 0.08 ng/mL (0.16-2.81)
[2021-01-17 10:41] LABS: PSA TOTAL 0.33 ng/mL (0.000-2.000)
== END 2021-01-17 09:32 | disposition home or self-care (01) ==
LOC: LAB 09:31
PROVIDERS: ATTEND Physician Assistant Medical
DX: N30.91 Cystitis, unspecified with hematuria (principal)
CPT/HCPCS: 36415; 84153; 84154

== ENCOUNTER 2021-03-14 09:20 | Outpatient (CLI) | payer MEDICARE, OTHER ==
[2021-03-14 09:57] LABS: CALCIUM 8.9 mg/dL (8.5-10.3); CREATININE 1.7 mg/dL (0.6-1.2); POTASSIUM 4.7 mmol/L (3.5-5.0)
[2021-03-14 10:30] LABS: CREATININE,URINE 193.6 mg/dL; PROTEIN/CREATININE RATIO,URINE 1.1 (<=0.2)
== END 2021-03-14 09:21 | disposition home or self-care (01) ==
LOC: LAB 09:20
PROVIDERS: ATTEND Internal Medicine Nephrology
DX: N05.9 Unspecified nephritic syndrome with unspecified morphologic changes (principal); I50.32 Chronic diastolic (congestive) heart failure; R80.9 Proteinuria, unspecified
CPT/HCPCS: 36415; 80048; 82570; 83880; 84156

== ENCOUNTER 2021-05-06 08:57 | Outpatient (CLI) | payer MEDICARE, OTHER ==
[2021-05-06] MEDS ORDERED: IOPAMIDOL-300 100 ML VIAL ONE (09:12)
[2021-05-06] MEDS ORDERED: IOPAMIDOL-300 100 ML VIAL IVP ONE (10:10)
--- NOTE | 2021-05-06 10:54 | CT Report ---
PROCEDURE: IVP INDICATIONS: RECURRING UTI, PERINEAL LUMP CONTRAST: IV CONTRAST: Isovue 300 ml: 140 PO CONTRAST: *NO PO CONTRAST TECHNIQUE: After the administration of oral and intravenous contrast, 5 mm thick sections acquired from the diap hragms to the symphysis. 5 mm thick coronal and sagittal reformats were acquired. For radiation dos e reduction, the following was used: automated exposure control, adjustment of mA and/or kV accordin g to patient size. COMPARISON: None. FINDINGS: Image quality: Excellent. Lung bases: Lung bases are clear. Heart size is normal. Moderate calcification of the coronary vas culature. Urinary system: Both kidneys are normal in size and enhancement. Contrast-filled renal calyces are normal in morphology. Contrast filled portions of both ureters are mildly distended bilaterally. Lef t parapelvic renal cysts are present. Urinary bladder is decompressed and demonstrates moderate wall thickening as well as moderate surrounding fat stranding. There is superimposed focal nodular thicken ing of the posterior inferior urinary bladder at the trigones, measuring roughly 30 mm transverse. Solid organs: Liver and spleen are normal in size and enhancement. Gallbladder is grossly unremarka ble Biliary system is non dilated. Pancreas enhances normally. No adrenal nodules. Peritoneum and bowel: Bowel loops demonstrate normal wall thickness and caliber. Normal appendix. N o free fluid or air. Nodes and vessels: No retroperitoneal or mesenteric adenopathy by size criteria. Aorta and inferior vena cava are normal in size. Abdominal wall: No ventral hernias. Pelvis: No pathologic free pelvic fluid. No inguinal hernias or adenopathy. Bones: No suspicious bony lesions. No vertebral body compression fractures. Grade 1 anterolisthesi s of L5 on S1. Bilateral L5-S1 pars interarticularis defects. Grade 1 anterolisthesis of L4 on L5. Bi lateral L4-L5 pars interarticularis defects. Probable L4-L5 and L5-S1 foraminal stenosis with intrafo raminal nerve root compression. IMPRESSION: 1. Cystitis. Correlation with urinalysis recommended. 2. Possible posterior inferior urinary bladder mass at the ureteral trigones. Recommend cystoscopy fo r further assessment. 3. Mild bilateral ureteral dilatation. 4. No evidence of urinary tract calcification. 5. Coronary artery disease. 6. Normal appendix. 7. 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 Initial further assessment with noncontrast lumbar spine MRI is recommended. Reviewed by: Geoff Barber MD on 05/06/2021 10:53 AM PDT Approved by: Geoff Barber MD on 05/06/2021 10:53 AM PDT Station ID: [id number]
== END 2021-05-06 08:58 | disposition home or self-care (01) ==
LOC: DI 08:57
PROVIDERS: ATTEND Urology
DX: N30.90 Cystitis, unspecified without hematuria (principal); R93.41 Abnormal radiologic findings on diagnostic imaging of renal pelvis, ureter, or bladder; N28.82 Megaloureter; I25.10 Atherosclerotic heart disease of native coronary artery without angina pectoris; M43.16 Spondylolisthesis, lumbar region; M43.17 Spondylolisthesis, lumbosacral region
CPT/HCPCS: 74178; Q9967

== ENCOUNTER 2021-05-19 07:13 | Emergency (ER) | payer MEDICARE, OTHER ==
--- NOTE | 2021-05-19 07:54 | ED Physician Documentation ---
PD HPI ABD PAIN - Stated complaint Stated Complaint: MALE - Chief complaint Chief Complaint: Abd Pain - History obtained from History obtained from: Patient (71-year-old gentleman with history of prostatic hypertrophy and recurrent UTIs developed hematuria with clots and urinary retention at 1 AM this morning with severe suprapubic pressure. No fevers.) Review of Systems Constitutional: denies: Fever, Chills GI: reports: Abdominal Pain. denies: Nausea, Diarrhea : reports: Dysuria, Frequency, Hesitancy, Unable to Void, Hematuria PD PAST MEDICAL HISTORY - Past Medical History Cardiovascular: Hypertension, High cholesterol, [place] - Past Surgical History Past Surgical History: Yes Cardiovascular: Coronary stent - Present Medications Home Medications: Ambulatory Orders Medication Instructions Recorded Confirmed Aspirin Chewable [St Rodolfo 81 mg PO DAILY 04/24/19 11/09/20 Aspirin] lisinopriL [Prinivil] 5 mg PO BID 04/24/19 11/09/20 Acetaminophen 1,000 mg PO DAILY PRN 05/07/19 11/09/20 Amiodarone [Pacerone] 100 mg PO DAILY 05/07/19 11/09/20 Apixaban [Eliquis] 5 mg PO BID 05/07/19 11/09/20 Carvedilol [Coreg] 25 mg PO BID 05/07/19 11/09/20 Glucos Sul 2Kcl/MSM/Chond/C/Mn 500 mg PO BID 05/07/19 11/09/20 [Glucosamine Chondroitin Cap] Rosuvastatin Calcium [Crestor] 40 mg PO DAILY 05/07/19 11/09/20 Spironolactone [Aldactone] 25 mg PO DAILY 05/07/19 05/07/19 Tamsulosin [Flomax] 0.4 mg PO DAILY 05/07/19 11/09/20 Ciprofloxacin HCl [Cipro] 500 mg PO BID #20 tablet 05/19/21 - Allergies Allergies/Adverse Reactions: Allergies Allergy/AdvReac Type Severity Reaction Status Date / Time No Known Drug Allergies Allergy Verified 05/19/21 07:22 - Social History Does the pt smoke?: No Smoking Status: Never smoker Does the pt drink ETOH?: Yes Does the pt have substance abuse?: No - Immunizations Immunizations are current?: Yes PD ED PE NORMAL - Vitals Vital signs reviewed: Yes - General General: Alert and oriented X 3, Other (Appears uncomfortable) - Abdomen Abdomen: Normal bowel sounds, Soft, Other (Suprapubic tenderness and mass) - Male Male : Other (Normal uncircumcised male genitalia) - Neuro Neuro: Alert and oriented X 3, Normal speech Results - Vitals Vitals: Vital Signs - 24 hr 05/19/21 07:17 Temperature 36.8 C Heart Rate 76 Respiratory 20 Rate Blood Pressure 136/77 H O2 Saturation 98 Oxygen O2 Source Room air - Labs Labs: Laboratory Tests 05/19/21 08:07 Urine Color RED/BLOODY Urine Clarity BLOODY Urine pH 6.5 Ur Specific [place] 1.020 Urine Protein >=300 H Urine Glucose (UA) 100 H Urine Ketones TRACE Urine Occult Blood LARGE H Urine Nitrite POSITIVE H Urine Bilirubin NEGATIVE Urine Urobilinogen >=8.0 H Ur Leukocyte Esterase SMALL H Urine RBC TNTC H Urine WBC 4-5 Ur Squamous Epith Cells NONE SEEN Urine Bacteria Rare Ur Microscopic Review INDICATED Urine Culture Comments INDICATED Procedures - General procedure General procedure: I personally placed a Rivera catheter, 14 Sinhala in standard fashion after iodine prep without complication. Gross hematuria resulted. PD MEDICAL DECISION MAKING - ED course ED course: 71-year-old gentleman with acute urinary retention related to with evidence of UTI. Rivera was placed and irrigated till clear. He has an appointment with his urologist next week and a cystoscopy as already planned. Departure - Departure Disposition: 01 Home, Self Care Clinical Impression: Hematuria, Urinary retention Condition: Good Record reviewed to determine appropriate education?: Yes Instructions: ED Catheter Care Rivera, ED Retention Urinary Male Prescriptions: Ciprofloxacin HCl [Cipro] 500 mg PO BID #20 tablet Comments: Follow-up with your urologist next week as scheduled. Return for new or wor sening symptoms.
[2021-05-19 08:32] LABS: BILIRUBIN,URINE NEGATIVE (NEGATIVE); GLUCOSE, URINE (UA) 100 mg/dL (NEGATIVE); KETONES,URINE (UA) TRACE mg/dL (NEGATIVE); LEUKOCYTE ESTERASE, URINE SMALL (NEGATIVE); NITRITE,URINE POSITIVE (NEGATIVE); OCCULT BLOOD,URINE LARGE (NEGATIVE); PH,URINE 6.5 PH (5.0-7.5); PROTEIN,URINE >=300 mg/dL (NEGATIVE); UROBILINOGEN,URINE >=8.0 E.U./dL (NORMAL)
[2021-05-19 08:38] LABS: CLARITY,URINE BLOODY (CLEAR)
[2021-05-19 08:39] LABS: BACTERIA,URINE Rare /HPF (None Seen); RBC,URINE TNTC /HPF (0-5); SQUAMOUS EPITHELIAL CELL,UR NONE SEEN (<= Few)
[2021-05-19] MEDS ORDERED: CIPROFLOXACIN 250 MG TABLET PO STA (09:38)
[2021-05-19 09:56] VITALS: BP 160/78
== END 2021-05-19 09:59 | disposition home or self-care (01) ==
LOC: ED 07:13
DX: R31.0 Gross hematuria (principal); R33.9 Retention of urine, unspecified; I10 Essential (primary) hypertension; Z95.5 Presence of coronary angioplasty implant and graft; Z79.01 Long term (current) use of anticoagulants
CPT/HCPCS: 51702; 81001; 87086; 99283; A9270; 81003

== ENCOUNTER 2021-05-20 07:40 | Emergency (ER) | payer MEDICARE, OTHER ==
--- NOTE | 2021-05-20 07:54 | ED Physician Documentation ---
PD HPI MALE - Stated complaint Stated Complaint: MALE - Chief complaint Chief Complaint: Abd Pain - History obtained from History obtained from: Patient - History of Present Illness Timing - onset: How many days ago (2) Timing - duration: Days (2) Timing - details: Abrupt onset (Of dysuria and frequency of urine with blood 2 days ago. Seen yesterday in the ER here for urinary retention due to blood clots. De Jesus and irrigated and improved. Clogged de jesus today and unable to void again.), Still present Associated symptoms: Dysuria, Unable to urinate, Hematuria (gross with clots.) PD HPI MALE CONTRIB FACTORS: Other (de jesus since yesterday) Similar symptoms before: Has not had sx before Recently seen: Emergency Dept (yesterday) Review of Systems Constitutional: denies: Fever, Chills Nose: denies: Rhinorrhea / runny nose, Congestion Throat: denies: Sore throat Respiratory: denies: Cough PD PAST MEDICAL HISTORY - Past Medical History Cardiovascular: Hypertension, High cholesterol, [place] Respiratory: None Neuro: None Endocrine/Autoimmune: None GI: GERD : Benign prostate hypertrophy HEENT: Chronic vision loss Psych: None Musculoskeletal: None Derm: None - Past Surgical History Past Surgical History: Yes Cardiovascular: Coronary stent - Present Medications Home Medications: Ambulatory Orders Medication Instructions Recorded Confirmed Aspirin Chewable [St Rodolfo 81 mg PO DAILY 04/24/19 05/20/21 Aspirin] lisinopriL [Prinivil] 5 mg PO BID 04/24/19 05/20/21 Acetaminophen 1,000 mg PO DAILY PRN 05/07/19 05/20/21 Amiodarone [Pacerone] 100 mg PO DAILY 05/07/19 05/20/21 Apixaban [Eliquis] 5 mg PO BID 05/07/19 05/20/21 Carvedilol [Coreg] 25 mg PO BID 05/07/19 05/20/21 Rosuvastatin Calcium [Crestor] 40 mg PO DAILY 05/07/19 05/20/21 - Allergies Allergies/Adverse Reactions: Allergies Allergy/AdvReac Type Severity Reaction Status Date / Time No Known Drug Allergies Allergy Verified 05/20/21 07:48 - Social History Does the pt smoke?: No Smoking Status: Never smoker Does the pt drink ETOH?: Yes Does the pt have substance abuse?: No - Immunizations Immunizations are current?: Yes - POLST Patient has POLST: No PD ED PE NORMAL - Vitals Vital signs reviewed: Yes - General General: Alert and oriented X 3, Well developed/nourished, Other (appears in discomfort due to full bladder. ) - HEENT HEENT: Pharynx benign - Neck Neck: Supple, no meningeal sign, No adenopathy - Cardiac Cardiac: RRR, No murmur - Respiratory Respiratory: Clear bilaterally - Abdomen Abdomen: Normal bowel sounds, Soft, No organomegaly, Other (tender with some fullness suprapubic area. De Jesus in place with clots proximal tubing and no urine output flowing. ) - Derm Derm: Normal color, Warm and dry, Other (mild pale) - Extremities Extremities: No edema, No calf tenderness / cord - Neuro Neuro: Alert and oriented X 3, No motor deficit, Normal speech Eye Opening: Spontaneous Motor: Obeys Commands Verbal: Oriented GCS Score: 15 - Psych Psych: Normal mood Results - Vitals Vitals: Vital Signs - 24 hr 05/20/21 05/20/21 05/20/21 07:46 08:01 10:00 Temperature 36.2 C L 36.3 C L Heart Rate 71 74 74 Respiratory 16 16 16 Rate Blood Pressure 113/59 L 113/62 178/81 H O2 Saturation 95 96 96 05/20/21 05/20/21 05/20/21 12:08 14:21 16:01 Temperature Heart Rate 72 70 68 Respiratory 20 16 16 Rate Blood Pressure 154/69 H 139/58 H 129/53 L O2 Saturation 91 L 95 97 05/20/21 05/20/21 16:43 17:45 Temperature Heart Rate 76 76 Respiratory 18 18 Rate Blood Pressure 142/63 H 151/63 H O2 Saturation 96 97 Oxygen O2 Source Room air - Labs Labs: Laboratory Tests 05/20/21 05/20/21 05/20/21 09:40 09:40 11:34 WBC 8.6 RBC 3.96 L Hgb 8.5 L Hct 29.8 L MCV 75.3 L MCH 21.5 L MCHC 28.5 L RDW 18.2 H Plt Count 219 MPV 10.0 Neut # (Auto) 6.7 H Lymph # (Auto) 1.1 L Morrison # (Auto) 0.8 Eos # (Auto) 0.0 Baso # (Auto) 0.0 Absolute Nucleated RBC 0.00 Nucleated RBC % 0.0 Manual Slide Review Indicated WBC Morphology NORMAL APPEARANCE Platelet Estimate NORMAL (130-450,000) Platelet Morphology NORMAL APPEARANCE RBC Morph Micro Appear 1+ MICROCYTOSIS PT 14.4 H INR 1.3 H APTT 27.4 Sodium 129 L Potassium 4.8 Chloride 97 L Carbon Dioxide 19 L Anion Gap 13.0 BUN 45 H Creatinine 2.6 H Estimated GFR (MDRD) 24 L Glucose 128 H Calcium 9.0 Nasal Adenovirus (PCR) Nasal B. parapertussis DNA (PCR) Nasal Coronavir 229E PCR Nasal Coronavir HKU1 PCR Nasal Coronavir NL63 PCR Nasal Coronavir OC43 PCR Nasal Enterovir/Rhinovir PCR Nasal Influenza B PCR Nasal Influenza A PCR Nasal Parainfluen 1 PCR Nasal Parainfluen 2 PCR Nasal Parainfluen 3 PCR Nasal Parainfluen 4 PCR Nasal RSV (PCR) Nasal B.pertussis DNA PCR Nasal C.pneumoniae (PCR) Gumaro Human Metapneumo PCR Nasal M.pneumoniae (PCR) Nasal SARS-CoV-2 (PCR) 05/20/21 05/20/21 14:05 14:30 WBC RBC Hgb 7.6 L Hct 25.9 L MCV MCH MCHC RDW Plt Count MPV Neut # (Auto) Lymph # (Auto) Morrison # (Auto) Eos # (Auto) Baso # (Auto) Absolute Nucleated RBC Nucleated RBC % Manual Slide Review WBC Morphology Platelet Estimate Platelet Morphology RBC Morph Micro Appear PT INR APTT Sodium Potassium Chloride Carbon Dioxide Anion Gap BUN Creatinine Estimated GFR (MDRD) Glucose Calcium Nasal Adenovirus (PCR) NOT DETECTED Nasal B. parapertussis DNA (PCR) NOT DETECTED Nasal Coronavir 229E PCR NOT DETECTED Nasal Coronavir HKU1 PCR NOT DETECTED Nasal Coronavir NL63 PCR NOT DETECTED Nasal Coronavir OC43 PCR NOT DETECTED Nasal Enterovir/Rhinovir PCR NOT DETECTED Nasal Influenza B PCR NOT DETECTED Nasal Influenza A PCR NOT DETECTED Nasal Parainfluen 1 PCR NOT DETECTED Nasal Parainfluen 2 PCR NOT DETECTED Nasal Parainfluen 3 PCR NOT DETECTED Nasal Parainfluen 4 PCR NOT DETECTED Nasal RSV (PCR) NOT DETECTED Nasal B.pertussis DNA PCR NOT DETECTED Nasal C.pneumoniae (PCR) NOT DETECTED Gumaro Human Metapneumo PCR NOT DETECTED Nasal M.pneumoniae (PCR) NOT DETECTED Nasal SARS-CoV-2 (PCR) NOT DETECTED Procedures - General procedure General procedure: I assisted nursing with placement of a 20 Estonian three-way bladder irrigating De Jesus. He did have discomfort with it. Blood and some urine did come out. Bedside ultrasound was used to verify the balloon of the catheter in the bladder. PD MEDICAL DECISION MAKING - ED course Complexity details: reviewed results, considered differential, d/w patient, d/w consumer services consultant (Urologist fire control technician b) [facility], Dr. Lamar in [facility]. The covering urologist for him is Dr. Olivo who practices out of the and is available for consultation. The other urologist in [place], Dr. Garcia, was unable to provide assistance as he was not on-call. I did talk with the on-call urologist Dr. Olivo and reviewed the findings. Her feeling is that with the degree of blood and falling blood count that the patient should be seen more urgently. She talked with the transfer center who contacted us and I talked with the [facility] ER attending Dr. Foster, who said the patient will be accepted to the ER. Transfer Center stated the accepting physician would be the Urologist, Dr. Olivo The patient will be transferred to the emergency room for urologic evaluation. They had no beds available at this time but accepted him ER to ER due to the urgency of needing specialist care. I did talk briefly with the hospitalist at [facility] at the suggestion of the nursing records supervisor at [facility]. Potential was to transfer there and have urology available tomorrow. However given the timeliness of it, the hospitalist there who did contact Dr. Olivo, felt the was a more appropriate place. Departure - Departure Disposition: 02 Transfer Acute Care Hosp Clinical Impression: Acute anemia, Acute renal insufficiency, Urinary retention, Anticoagulant long- term use Hematuria Qualifiers: Hematuria type: gross Qualified Code(s): R31.0 - Gross hematuria UTI (urinary tract infection) Qualifiers: Urinary tract infection type: acute cystitis Hematuria presence: with hematuria Qualified Code(s): N30.01 - Acute cystitis with hematuria Condition: Stable Record reviewed to determine appropriate education?: Yes
[2021-05-20] MEDS ORDERED: LIDOCAINE 2% URO-JET 5 ML SYRINGE UR STA (08:54)
[2021-05-20] MEDS ORDERED: SODIUM CHLORIDE 0.9% 1,000 ML IV STA ×3 (09:23→13:53)
[2021-05-20] MEDS ORDERED: LIDOCAINE-MPF 2% 7 ML in SODIUM CHLORIDE 0.9% 50 ML IV STA (09:23)
[2021-05-20] MEDS ORDERED: KETOROLAC 30 MG/ML VIAL IVP STA (09:23)
[2021-05-20] MEDS ORDERED: MORPHINE 2 MG/ML CARPUJECT IVP STA ×2 (09:24→11:13)
[2021-05-20 09:52] LABS: BASOPHILS % (AUTO) 0.2 %; EOSINOPHILS % (AUTO) 0.5 %; HCT - HEMATOCRIT 29.8 % (42.0-52.0); HGB - HEMOGLOBIN 8.5 g/dL (14.0-18.0); LYMPHOCYTES # (AUTO) 1.1 10^3/uL (1.5-3.5); LYMPHOCYTES % (AUTO) 12.2 %; MEAN CORPUSCULAR HEMOGLOBIN 21.5 pg (27.0-31.0); MEAN CORPUSCULAR HGB CONC 28.5 g/dL (32.0-36.0); MEAN CORPUSCULAR VOLUME 75.3 fL (80.0-94.0); MONOCYTES # (AUTO) 0.8 10^3/uL (0.0-1.0); MONOCYTES % (AUTO) 9.2 %; NEUTROPHILS # (AUTO) 6.7 10^3/uL (1.5-6.6); NEUTROPHILS % (AUTO) 77.6 %; PLT - PLATELET COUNT 219 10^3/uL (130-450); RED BLOOD COUNT 3.96 10^6/uL (4.70-6.10); RED CELL DISTRIBUTION WIDTH 18.2 % (12.0-15.0); WHITE BLOOD COUNT 8.6 x10^3/uL (4.8-10.8)
[2021-05-20 10:09] LABS: CREATININE 2.6 mg/dL (0.6-1.2); POTASSIUM 4.8 mmol/L (3.5-5.0)
[2021-05-20 10:12] LABS: PLATELET ESTIMATE, MANUAL NORMAL (130-450,000) (NORMAL); PLATELET MORPHOLOGY NORMAL APPEARANCE (NORMAL); SLIDE REVIEW? Indicated
[2021-05-20 10:13] LABS: WBC MORPHOLOGY (MULTIPLE) NORMAL APPEARANCE (NORMAL)
[2021-05-20] MEDS ORDERED: TRANEXAMIC ACID 1,000 MG in SODIUM CHLORIDE 0.9% 100ML 100 ML IV STA (11:12)
[2021-05-20 11:48] LABS: INR 1.3 (0.8-1.2); PT - PROTHROMBIN TIME 14.4 secs (9.9-12.6)
[2021-05-20 11:55] LABS: PARTIAL THROMBOPLASTIN TIME 27.4 secs (24.9-33.3)
[2021-05-20] MEDS ORDERED: cefTRIAXone 1 GM VIAL IVP STA (13:51)
[2021-05-20] MEDS ORDERED: HYDROmorphone 1 MG/ML CARPUJECT IVP STA ×2 (14:38→17:42)
[2021-05-20 14:39] LABS: HCT - HEMATOCRIT 25.9 % (42.0-52.0); HGB - HEMOGLOBIN 7.6 g/dL (14.0-18.0)
[2021-05-20 15:58] LABS: B. PARAPERTUSSIS- RESP PCR PAN NOT DETECTED; B. PERTUSSIS- RESP PCR PANEL NOT DETECTED; C. PNEUMONIAE- RESP PCR PANEL NOT DETECTED; CORONAVIRUS 229E-RESP PCR NOT DETECTED; CORONAVIRUS HKU1-RESP PCR NOT DETECTED; CORONAVIRUS NL63-RESP PCR NOT DETECTED; CORONAVIRUS OC43-RESP PCR NOT DETECTED; HUMAN METAPNEUMOVIRUS NOT DETECTED; INFLUENZA A- RESP PCR PANEL NOT DETECTED; INFLUENZA B - RESP PCR PANEL NOT DETECTED; M. PNEUMONIAE- RESP PCR PANEL NOT DETECTED; PARAINFLUENZA VIRUS 1 NOT DETECTED; PARAINFLUENZA VIRUS 2 NOT DETECTED; PARAINFLUENZA VIRUS 3 NOT DETECTED; PARAINFLUENZA VIRUS 4 NOT DETECTED; RHINOVIRUS/ENTEROVIRUS NOT DETECTED; RSV- RESP PCR PANEL NOT DETECTED; SARS-CoV-2 -RESP PCR PANEL NOT DETECTED
[2021-05-20 17:53] VITALS: BP 151/63
== END 2021-05-20 17:59 | disposition short-term general hospital (02) ==
LOC: ED 07:40
DX: T83.091A Other mechanical complication of indwelling urethral catheter, initial encounter (principal); Y84.9 Medical procedure, unspecified as the cause of abnormal reaction of the patient, or of later complication, without mention of misadventure at the time of the procedure; N28.9 Disorder of kidney and ureter, unspecified; N30.01 Acute cystitis with hematuria; D64.9 Anemia, unspecified; I10 Essential (primary) hypertension; Z95.5 Presence of coronary angioplasty implant and graft; Z79.01 Long term (current) use of anticoagulants; Z20.822 Contact with and (suspected) exposure to COVID-19
CPT/HCPCS: 36415; 51703; 80048; 85014; 85018; 85025; 85610; 85730; 87631; 96361; 96365; 96375; 96376; 99284; 99285; J1170; J7040; 0202U

== ENCOUNTER 2021-05-24 18:48 | Emergency (ER) | payer MEDICARE, OTHER ==
--- NOTE | 2021-05-24 19:14 | ED Physician Documentation ---
PD HPI ABD PAIN - Stated complaint Stated Complaint: BLADDER PX - Chief complaint Chief Complaint: Abd Pain - History obtained from History obtained from: Patient - Additional information Additional information: 71-year-old gentleman was seen here last week for gross hematuria. Ended up having a catheter placed which required CBI and developed an acute blood loss anemia and was subsequently sent on the to the [facility] for evaluation. We are try to get the discharge summary but per his description he is not sure if his cystoscopy was done. He does know that according to his discharge summary he had an NSTEMI while there. He was started on Plavix. He was discharged this morning. He does not have a catheter in and is not able to urinate now and has severe bladder pain. Review of Systems Ten Systems: 10 systems reviewed and negative Constitutional: reports: Reviewed and negative Throat: reports: Reviewed and negative Cardiac: reports: Reviewed and negative Respiratory: reports: Reviewed and negative PD PAST MEDICAL HISTORY - Past Medical History Cardiovascular: Hypertension, High cholesterol, [place] Respiratory: None Neuro: None Endocrine/Autoimmune: None GI: GERD : Benign prostate hypertrophy HEENT: Chronic vision loss Psych: None Musculoskeletal: None Derm: None - Past Surgical History Past Surgical History: Yes Cardiovascular: Coronary stent - Present Medications Home Medications: Ambulatory Orders Medication Instructions Recorded Confirmed Aspirin Chewable [St Rodolfo 81 mg PO DAILY 04/24/19 05/24/21 Aspirin] lisinopriL [Prinivil] 5 mg PO BID 04/24/19 05/24/21 Acetaminophen 1,000 mg PO DAILY PRN 05/07/19 05/24/21 Amiodarone [Pacerone] 100 mg PO DAILY 05/07/19 05/24/21 Apixaban [Eliquis] 5 mg PO BID 05/07/19 05/24/21 Carvedilol [Coreg] 25 mg PO BID 05/07/19 05/24/21 Rosuvastatin Calcium [Crestor] 40 mg PO DAILY 05/07/19 05/24/21 Clopidogrel [Plavix] 75 gm PO DAILY 05/24/21 05/24/21 Furosemide [Lasix] 20 mg PO DAILY 05/24/21 05/24/21 Spironolactone [Aldactone] 25 mg PO DAILY 05/24/21 05/24/21 Tamsulosin [Flomax] 0.4 mg PO DAILY 05/24/21 05/24/21 - Allergies Allergies/Adverse Reactions: Allergies Allergy/AdvReac Type Severity Reaction Status Date / Time No Known Drug Allergies Allergy Verified 05/24/21 18:51 - Social History Does the pt smoke?: No Smoking Status: Never smoker Does the pt drink ETOH?: Yes Does the pt have substance abuse?: No - Immunizations Immunizations are current?: Yes - POLST Patient has POLST: No PD ED PE NORMAL - Vitals Vital signs reviewed: Yes - General General: Alert and oriented X 3 (He appears uncomfortable and clutching the suprapubic area.) - Abdomen Abdomen: Normal bowel sounds, Soft, Non tender - Back Back: No CVA TTP, No spinal TTP - Derm Derm: Normal color, Warm and dry - Extremities Extremities: No edema, No calf tenderness / cord - Neuro Neuro: Alert and oriented X 3, Normal speech Results - Vitals Vitals: Vital Signs - 24 hr 05/25/21 05/25/21 05/25/21 17:00 19:00 21:00 Temperature 36.5 C Heart Rate 57 L 57 L 58 L Respiratory 20 20 20 Rate Blood Pressure 143/63 H 146/61 H 138/58 H O2 Saturation 95 96 96 05/25/21 05/26/21 05/26/21 23:00 00:00 01:56 Temperature Heart Rate 57 L 57 L 59 L Respiratory 21 18 19 Rate Blood Pressure 133/56 H 145/76 H 145/76 H O2 Saturation 93 94 95 05/26/21 05/26/21 05/26/21 03:00 04:00 06:00 Temperature 36.2 C L Heart Rate 56 L 55 L 63 Respiratory 17 18 15 Rate Blood Pressure 137/56 H 144/60 H 142/61 H O2 Saturation 94 93 96 05/26/21 05/26/21 05/26/21 07:22 09:05 11:09 Temperature 36.7 C Heart Rate 63 60 64 Respiratory 16 26 H 17 Rate Blood Pressure 136/64 H 125/60 146/60 H O2 Saturation 95 95 95 05/26/21 05/26/21 12:43 14:54 Temperature 36.6 C Heart Rate 57 L 60 Respiratory 15 21 Rate Blood Pressure 138/62 H 145/60 H O2 Saturation 94 96 Oxygen O2 Source Room air - Labs Labs: Microbiology 05/24/21 19:50 Urine Culture - Final Urine,Catheterized No growth Laboratory Tests 05/24/21 05/24/21 05/24/21 19:35 19:35 19:50 WBC 7.9 RBC 3.51 L Hgb 8.7 L Hct 28.0 L MCV 79.8 L MCH 24.8 L MCHC 31.1 L RDW 20.8 H Plt Count 152 MPV 10.3 Neut # (Auto) 6.5 Lymph # (Auto) 0.5 L Coos # (Auto) 0.8 Eos # (Auto) 0.1 Baso # (Auto) 0.0 Absolute Nucleated RBC 0.00 Nucleated RBC % 0.0 Manual Slide Review Indicated WBC Morphology NORMAL APPEARANCE Platelet Estimate NORMAL (130-450,000) Platelet Morphology NORMAL APPEARANCE RBC Morph Micro Appear 1+ POLYCHROMASIA Sodium 132 L Potassium 4.7 Chloride 101 Carbon Dioxide 20 L Anion Gap 11.0 BUN 36 H Creatinine 1.8 H Estimated GFR (MDRD) 37 L Glucose 117 H Calcium 8.3 L Magnesium 1.7 Urine Color RED/BLOODY Urine Clarity TURBID Urine pH 6.5 Ur Specific [place] >=1.030 H Urine Protein >=300 H Urine Glucose (UA) 250 H Urine Ketones TRACE Urine Occult Blood LARGE H Urine Nitrite POSITIVE H Urine Bilirubin NEGATIVE Urine Urobilinogen 2 H Ur Leukocyte Esterase TRACE H Urine RBC TNTC H Urine WBC 6-10 H Ur Squamous Epith Cells NONE SEEN Urine Bacteria None Seen Ur Microscopic Review INDICATED Urine Culture Comments INDICATED 05/25/21 05/25/21 05/25/21 01:25 07:29 16:55 WBC 5.5 RBC 3.30 L Hgb 8.1 L 8.2 L 8.3 L Hct 27.4 L 26.7 L 27.1 L MCV 82.1 MCH 25.2 L MCHC 30.6 L RDW 21.3 H Plt Count 145 MPV 9.3 Neut # (Auto) 3.8 Lymph # (Auto) 0.7 L Coos # (Auto) 0.8 Eos # (Auto) 0.2 Baso # (Auto) 0.0 Absolute Nucleated RBC 0.00 Nucleated RBC % 0.0 Manual Slide Review Indicated WBC Morphology NORMAL APPEARANCE Platelet Estimate NORMAL (130-450,000) Platelet Morphology NORMAL APPEARANCE RBC Morph Micro Appear NORMAL APPEARANCE Sodium Potassium Chloride Carbon Dioxide Anion Gap BUN Creatinine Estimated GFR (MDRD) Glucose Calcium Magnesium Urine Color Urine Clarity Urine pH Ur Specific [place] Urine Protein Urine Glucose (UA) Urine Ketones Urine Occult Blood Urine Nitrite Urine Bilirubin Urine Urobilinogen Ur Leukocyte Esterase Urine RBC Urine WBC Ur Squamous Epith Cells Urine Bacteria Ur Microscopic Review Urine Culture Comments 05/25/21 05/26/21 05/26/21 16:55 06:40 06:40 WBC 5.8 RBC 3.55 L Hgb 8.9 L Hct 29.0 L MCV 81.7 MCH 25.1 L MCHC 30.7 L RDW 21.2 H Plt Count 160 MPV 10.1 Neut # (Auto) 4.1 Lymph # (Auto) 0.8 L Coos # (Auto) 0.6 Eos # (Auto) 0.3 Baso # (Auto) 0.0 Absolute Nucleated RBC 0.00 Nucleated RBC % 0.0 Manual Slide Review Indicated WBC Morphology Platelet Estimate Platelet Morphology RBC Morph Micro Appear 3+ ANISOCYTOSIS Sodium 136 137 Potassium 4.6 4.1 Chloride 103 104 Carbon Dioxide 26 25 Anion Gap 7.0 8.0 BUN 27 H 26 H Creatinine 1.3 H 1.3 H Estimated GFR (MDRD) 54 L 54 L Glucose 118 H 104 H Calcium 8.1 L 8.3 L Magnesium Urine Color Urine Clarity Urine pH Ur Specific [place] Urine Protein Urine Glucose (UA) Urine Ketones Urine Occult Blood Urine Nitrite Urine Bilirubin Urine Urobilinogen Ur Leukocyte Esterase Urine RBC Urine WBC Ur Squamous Epith Cells Urine Bacteria Ur Microscopic Review Urine Culture Comments PD MEDICAL DECISION MAKING - ED course ED course: 71-year-old gentleman who was sent to the [facility] for clot retention and needing CBI and perioperatively had a non-STEMI was discharged earlier today from [facility] and is almost immediately retaining urine with clots again. Rivera was placed with grossly bloody urine. Pain was better after Rivera placement. Care to Dr. Osborn at shift change, 10 PM on 24 May Awaiting a callback from [facility] for transfer. Took over care again noon on 05/25. Still waiting for bed at [facility]. Dr. Lamar is back today and we attempted to call [facility] to speak with him. Reportedly he refused to speak with me, he is not on-call at [facility] today (via a medical office receptionist assistant). He felt that the patient should go back to the [facility]. It was passed on that they were full and this did not lead to me being able to talk to him. Urologist on-call for [facility] today is the same 1 that took care of him and is based at the [facility], she does not actually have privileges at [facility]. We kept calling [facility] they remained full. We also called the [facility], they know of no open beds in the region. Entertain sending him home since it did not seem like there were any clots in the bag. I tried hand irrigating his bladder though and there were clots in it and it was obstructed so CBI was begun again. Back on duty today, May 26 at noon. We did get a hold of Dr. Lamar today as he is now on-call and the case was discussed. He felt the patient needed to go back to the [facility] as he needed the services of interventional radiology. Subsequently I spoke with Dr. Rk Vicente, he is the on-call urologist with [facility] today. He agreed with transfer, noting they still do not have beds but are entertaining an ED to ED transfer. And they will call me back. We were able to arrange for an ED transfer and I also presented the case to Dr. Dino Brice , The ED physician there. Departure - Departure Disposition: 02 Transfer Acute Care Hosp Clinical Impression: Hematuria, Urinary retention, Acute anemia, Anticoagulant long-term use Condition: Serious Discharge Date/Time: 05/26/21 15:15
[2021-05-24 20:04] LABS: BASOPHILS % (AUTO) 0.3 %; EOSINOPHILS # (AUTO) 0.1 10^3/uL (0.0-0.7); EOSINOPHILS % (AUTO) 1.1 %; HGB - HEMOGLOBIN 8.7 g/dL (14.0-18.0); LYMPHOCYTES # (AUTO) 0.5 10^3/uL (1.5-3.5); LYMPHOCYTES % (AUTO) 6.6 %; MEAN CORPUSCULAR HEMOGLOBIN 24.8 pg (27.0-31.0); MEAN CORPUSCULAR HGB CONC 31.1 g/dL (32.0-36.0); MEAN CORPUSCULAR VOLUME 79.8 fL (80.0-94.0); MEAN PLATELET VOLUME 10.3 fL (7.4-11.4); MONOCYTES # (AUTO) 0.8 10^3/uL (0.0-1.0); MONOCYTES % (AUTO) 9.9 %; NEUTROPHILS # (AUTO) 6.5 10^3/uL (1.5-6.6); NEUTROPHILS % (AUTO) 81.5 %; PLT - PLATELET COUNT 152 10^3/uL (130-450); RED BLOOD COUNT 3.51 10^6/uL (4.70-6.10); RED CELL DISTRIBUTION WIDTH 20.8 % (12.0-15.0); WHITE BLOOD COUNT 7.9 x10^3/uL (4.8-10.8)
[2021-05-24 20:13] LABS: CALCIUM 8.3 mg/dL (8.5-10.3); CREATININE 1.8 mg/dL (0.6-1.2); MAGNESIUM 1.7 mg/dL (1.7-2.8); POTASSIUM 4.7 mmol/L (3.5-5.0)
[2021-05-24 20:21] LABS: BILIRUBIN,URINE NEGATIVE (NEGATIVE); GLUCOSE, URINE (UA) 250 mg/dL (NEGATIVE); KETONES,URINE (UA) TRACE mg/dL (NEGATIVE); LEUKOCYTE ESTERASE, URINE TRACE (NEGATIVE); NITRITE,URINE POSITIVE (NEGATIVE); OCCULT BLOOD,URINE LARGE (NEGATIVE); PH,URINE 6.5 PH (5.0-7.5); PROTEIN,URINE >=300 mg/dL (NEGATIVE); UROBILINOGEN,URINE 2 E.U./dL (NORMAL)
[2021-05-24 20:23] LABS: BACTERIA,URINE None Seen /HPF (None Seen); CLARITY,URINE TURBID (CLEAR); RBC,URINE TNTC /HPF (0-5); SQUAMOUS EPITHELIAL CELL,UR NONE SEEN (<= Few)
[2021-05-24 20:26] LABS: PLATELET ESTIMATE, MANUAL NORMAL (130-450,000) (NORMAL); PLATELET MORPHOLOGY NORMAL APPEARANCE (NORMAL); SLIDE REVIEW? Indicated; WBC MORPHOLOGY (MULTIPLE) NORMAL APPEARANCE (NORMAL)
[2021-05-24] MEDS ORDERED: SODIUM CHLORIDE 0.9% 1,000 ML IV STA (22:47)
--- NOTE | 2021-05-24 23:53 | ED Physician Documentation ---
ED Addendum - Addendum Addendum: The transfer center called back and connected me with Dr. Mendez, urologist. She had seen the patient recently at and performed a cystoscopy. She reports finding lots of clots within the bladder wall despite irrigation prior to the scope. She removed about 700 cc milliliters of clot and there was some in the right ureter as well. It was a 3-hour procedure and ultimately had a clean bladder of clots. There was considerable rawness of the wall diffusely from the clots and irrigation. No obvious tumors. She is suspicious for a bleeding source from the right ureter given some blood cast in there. Plain CT was done without showing an obvious source. He did have a troponin leak associated with the anemia and apparently the procedure. Seen by cardiology. She reports no intervention per se but was started on medical management. The urologist reports the patient had no blood at all in the urine for a day and a half prior to discharge and he was able to void on his own prior to discharge. Given new hematuria and urinary retention with that and the stress on his heart from the recent procedure and anemia, she felt the patient should be hospitalized for further evaluation. To eval H/H, fluid status, and vitals. Minimize CBI unless clotting to decrease wall injury. The transfer center states they have no beds available at this time but will update us when beds are available in the morning with discharges. The patient is essentially accepted but no bed assignment at this time. We are to contact them if the patient becomes unstable and needs ER to ER transfer otherwise they will contact us with bed availability in the morning and we will need to talk with the oncoming urologist educational aide. She asks for CT IVP since renal function is back to baseline. Ordered but then noted that one was done outpatient on 05/06/21, so cancelled the study tonight. 05/24/21 23:48
[2021-05-25 01:29] LABS: HCT - HEMATOCRIT 27.4 % (42.0-52.0); HGB - HEMOGLOBIN 8.1 g/dL (14.0-18.0)
[2021-05-25] MEDS ORDERED: OXYBUTYNIN 5MG TABLET PO STA (03:57)
[2021-05-25] MEDS ORDERED: HYDROmorphone 0.5 MG/0.5 ML SYRINGE IVP STA (03:57)
[2021-05-25] MEDS ORDERED: OPIUM/BELLADONNA 60/16.2MG SUPPOSITORY PR PRN (03:57)
[2021-05-25 07:36] LABS: HCT - HEMATOCRIT 26.7 % (42.0-52.0); HGB - HEMOGLOBIN 8.2 g/dL (14.0-18.0)
[2021-05-25 16:59] LABS: BASOPHILS % (AUTO) 0.4 %; EOSINOPHILS # (AUTO) 0.2 10^3/uL (0.0-0.7); EOSINOPHILS % (AUTO) 4.2 %; HCT - HEMATOCRIT 27.1 % (42.0-52.0); HGB - HEMOGLOBIN 8.3 g/dL (14.0-18.0); LYMPHOCYTES # (AUTO) 0.7 10^3/uL (1.5-3.5); LYMPHOCYTES % (AUTO) 12.7 %; MEAN CORPUSCULAR HEMOGLOBIN 25.2 pg (27.0-31.0); MEAN CORPUSCULAR HGB CONC 30.6 g/dL (32.0-36.0); MEAN CORPUSCULAR VOLUME 82.1 fL (80.0-94.0); MEAN PLATELET VOLUME 9.3 fL (7.4-11.4); MONOCYTES # (AUTO) 0.8 10^3/uL (0.0-1.0); MONOCYTES % (AUTO) 13.6 %; NEUTROPHILS # (AUTO) 3.8 10^3/uL (1.5-6.6); NEUTROPHILS % (AUTO) 68.4 %; PLT - PLATELET COUNT 145 10^3/uL (130-450); RED CELL DISTRIBUTION WIDTH 21.3 % (12.0-15.0); WHITE BLOOD COUNT 5.5 x10^3/uL (4.8-10.8)
[2021-05-25 17:02] LABS: SLIDE REVIEW? Indicated
[2021-05-25 17:08] LABS: CALCIUM 8.1 mg/dL (8.5-10.3); CREATININE 1.3 mg/dL (0.6-1.2); POTASSIUM 4.6 mmol/L (3.5-5.0)
[2021-05-25 17:16] LABS: PLATELET ESTIMATE, MANUAL NORMAL (130-450,000) (NORMAL); PLATELET MORPHOLOGY NORMAL APPEARANCE (NORMAL); RBC MORPHOLOGY (MULTIPLE) NORMAL APPEARANCE (NORMAL); WBC MORPHOLOGY (MULTIPLE) NORMAL APPEARANCE (NORMAL)
[2021-05-25] MEDS ORDERED: LORazepam 1 MG TABLET PO STA (21:50)
[2021-05-25] MEDS: APIXABAN 5 MG TABLET PO SCH (22:09)
[2021-05-25] MEDS: carvediloL 12.5 MG TABLET PO SCH (22:10)
[2021-05-26 07:04] LABS: CALCIUM 8.3 mg/dL (8.5-10.3); CREATININE 1.3 mg/dL (0.6-1.2); POTASSIUM 4.1 mmol/L (3.5-5.0)
[2021-05-26 07:13] LABS: BASOPHILS % (AUTO) 0.3 %; EOSINOPHILS # (AUTO) 0.3 10^3/uL (0.0-0.7); EOSINOPHILS % (AUTO) 4.8 %; HGB - HEMOGLOBIN 8.9 g/dL (14.0-18.0); LYMPHOCYTES # (AUTO) 0.8 10^3/uL (1.5-3.5); LYMPHOCYTES % (AUTO) 13.1 %; MEAN CORPUSCULAR HEMOGLOBIN 25.1 pg (27.0-31.0); MEAN CORPUSCULAR HGB CONC 30.7 g/dL (32.0-36.0); MEAN CORPUSCULAR VOLUME 81.7 fL (80.0-94.0); MEAN PLATELET VOLUME 10.1 fL (7.4-11.4); MONOCYTES # (AUTO) 0.6 10^3/uL (0.0-1.0); MONOCYTES % (AUTO) 10.8 %; NEUTROPHILS # (AUTO) 4.1 10^3/uL (1.5-6.6); NEUTROPHILS % (AUTO) 70.5 %; PLT - PLATELET COUNT 160 10^3/uL (130-450); RED BLOOD COUNT 3.55 10^6/uL (4.70-6.10); RED CELL DISTRIBUTION WIDTH 21.2 % (12.0-15.0); WHITE BLOOD COUNT 5.8 x10^3/uL (4.8-10.8)
[2021-05-26 07:15] LABS: SLIDE REVIEW? Indicated
[2021-05-26 07:34] LABS: RBC MORPHOLOGY (MULTIPLE) 3+ ANISOCYTOSIS (NORMAL)
[2021-05-26] MEDS: carvediloL 12.5 MG TABLET PO SCH (08:57)
[2021-05-26] MEDS ORDERED: lisinopriL 5 MG TABLET PO SCH (09:00)
[2021-05-26] MEDS ORDERED: SPIRONOLACTONE 25 MG TABLET PO SCH (09:00)
[2021-05-26] MEDS ORDERED: CLOPIDOGREL 75 MG TABLET PO SCH (09:00)
[2021-05-26] MEDS ORDERED: ATORVASTATIN 40 MG TABLET PO SCH (09:00)
[2021-05-26] MEDS ORDERED: FUROSEMIDE 20 MG TABLET PO SCH (09:00)
[2021-05-26] MEDS ORDERED: ASPIRIN CHEW 81 MG TABLET PO SCH (09:00)
[2021-05-26] MEDS ORDERED: AMIODARONE 200 MG TABLET PO SCH ×2 (09:00)
[2021-05-26] MEDS ORDERED: TAMSULOSIN 0.4 MG CAPSULE PO SCH (09:00)
[2021-05-26] MEDS: APIXABAN 5 MG TABLET PO SCH (09:01)
[2021-05-26] MEDS ORDERED: ACETAMINOPHEN 325 MG TABLET PO STA (11:19)
[2021-05-26 14:56] VITALS: BP 145/60
== END 2021-05-26 15:15 | disposition short-term general hospital (02) ==
LOC: ED 18:48
DX: R33.9 Retention of urine, unspecified (principal); R31.9 Hematuria, unspecified; D64.9 Anemia, unspecified; Z79.01 Long term (current) use of anticoagulants
CPT/HCPCS: 36415; 51700; 51798; 80048; 81001; 83735; 85014; 85018; 85025; 87086; 96361; 96374; 99284; 99285; A9270; J1170; J8499; 81003

== ENCOUNTER 2021-05-26 15:33 | Outpatient (CLI) | payer MEDICARE, OTHER | END 2021-05-26 15:34 | disposition short-term general hospital (02) | LOC: EMS 15:33 | PROVIDERS: ATTEND Emergency Medicine | DX: R33.8 Other retention of urine (principal); R10.30 Lower abdominal pain, unspecified | CPT/HCPCS: A0425; A0428 ==

== ENCOUNTER 2021-09-22 12:59 | Inpatient (IN) | payer MEDICARE, OTHER ==
--- NOTE | 2021-09-22 13:42 | ED Physician Documentation ---
History of Present Illness - Stated complaint Stated Complaint: MALE - Chief complaint Chief Complaint: UTI - History obtained from History obtained from: Patient - History of Present Illness Timing: How many days ago (3) Pain level max: 3 Pain level now: 2 - Additonal information Additional information: 71-year-old male presents to the emergency department with dysuria, hematuria and urinary frequency for the past 3 days. Similar to prior UTIs. Nothing makes it better or worse. Patient states that he was transferred to [facility] in April 2021 for similar symptoms. Had a cystoscopy at that time that was reportedly normal. He was on Plavix and Eliquis at that time. No abdominal pain. No fevers. No trauma. He states that he stopped taking Plavix and Eliquis in April. Is no longer on blood thinners. Review of Systems Ten Systems: 10 systems reviewed and negative Constitutional: denies: Fever, Chills Respiratory: denies: Cough GI: denies: Vomiting, Diarrhea : reports: Hematuria Skin: denies: Rash Musculoskeletal: denies: Neck pain, Back pain Neurologic: denies: Headache PD PAST MEDICAL HISTORY - Past Medical History Past Medical History: Yes Cardiovascular: Hypertension, High cholesterol, MT Respiratory: None Neuro: None Endocrine/Autoimmune: None GI: GERD : Benign prostate hypertrophy HEENT: Chronic vision loss Psych: None Musculoskeletal: None Derm: None - Past Surgical History Past Surgical History: Yes Cardiovascular: Coronary stent - Present Medications Home Medications: Ambulatory Orders Medication Instructions Recorded Confirmed Aspirin Chewable [St Rodolfo 81 mg PO DAILY 04/24/19 09/22/21 Aspirin] lisinopriL [Prinivil] 10 mg PO DAILY 04/24/19 09/22/21 Acetaminophen 500 mg PO DAILY PRN 05/07/19 09/22/21 Amiodarone [Pacerone] 100 mg PO DAILY 05/07/19 09/22/21 Carvedilol [Coreg] 12.5 mg PO BID 05/07/19 09/22/21 Rosuvastatin Calcium [Crestor] 40 mg PO DAILY 05/07/19 09/22/21 - Allergies Allergies/Adverse Reactions: Allergies Allergy/AdvReac Type Severity Reaction Status Date / Time No Known Drug Allergies Allergy Verified 09/22/21 13:14 - Social History Does the pt smoke?: No Smoking Status: Never smoker Does the pt drink ETOH?: Yes Does the pt have substance abuse?: No - Immunizations Immunizations are current?: Yes - POLST Patient has POLST: No PD ED PE NORMAL - Vitals Vital signs reviewed: Yes - General General: Alert and oriented X 3, No acute distress - HEENT HEENT: Moist mucous membranes - Neck Neck: Supple, no meningeal sign - Cardiac Cardiac: RRR, Strong equal pulses - Respiratory Respiratory: No respiratory distress, Clear bilaterally - Abdomen Abdomen: Soft, Non tender, Non distended - Male Male : Other (Gross hematuria with clots) - Derm Derm: Warm and dry - Extremities Extremities: No edema - Neuro Neuro: Alert and oriented X 3 - Psych Psych: Normal mood, Normal affect Results - Vitals Vitals: Vital Signs - 24 hr 09/22/21 09/22/21 09/22/21 13:05 17:34 17:48 Temperature 36.5 C 37.5 C 37 C Heart Rate 70 71 66 Respiratory 18 18 18 Rate Blood Pressure 117/72 119/91 H 123/58 L O2 Saturation 99 96 09/22/21 09/22/21 09/22/21 17:58 19:47 20:27 Temperature 37.4 C 36.8 C 37.5 C Heart Rate 64 71 73 Respiratory 17 19 20 Rate Blood Pressure 122/55 L 129/58 L 141/68 H O2 Saturation 97 97 09/22/21 20:45 Temperature 37.4 C Heart Rate 70 Respiratory 18 Rate Blood Pressure 134/63 H O2 Saturation Oxygen O2 Source Room air - Labs Labs: Laboratory Tests 09/22/21 09/22/21 09/22/21 13:18 13:56 13:56 WBC 5.5 RBC 3.83 L Hgb 7.4 L Hct 27.0 L MCV 70.5 L MCH 19.3 L MCHC 27.4 L RDW 18.8 H Plt Count 174 MPV 9.6 Neut # (Auto) 4.0 Lymph # (Auto) 0.6 L [place] # (Auto) 0.7 Eos # (Auto) 0.2 Baso # (Auto) 0.0 Absolute Nucleated RBC 0.00 Nucleated RBC % 0.0 PT 14.3 H INR 1.3 H APTT 28.7 Sodium Potassium Chloride Carbon Dioxide Anion Gap BUN Creatinine Estimated GFR (MDRD) Glucose Calcium Total Bilirubin AST ALT Alkaline Phosphatase Total Protein Albumin Globulin Albumin/Globulin Ratio Urine Color RED/BLOODY Urine Clarity BLOODY Urine pH 6.5 Ur Specific [place] 1.020 Urine Protein >=300 H Urine Glucose (UA) NEGATIVE Urine Ketones NEGATIVE Urine Occult Blood LARGE H Urine Nitrite NEGATIVE Urine Bilirubin NEGATIVE Urine Urobilinogen 0.2 (NORMAL) Ur Leukocyte Esterase SMALL H Urine RBC TNTC H Urine WBC 0-3 Ur Squamous Epith Cells NONE SEEN Urine Bacteria None Seen Ur Microscopic Review INDICATED Urine Culture Comments INDICATED Nasal Adenovirus (PCR) Nasal B. parapertussis DNA (PCR) Nasal Coronavir 229E PCR Nasal Coronavir HKU1 PCR Nasal Coronavir NL63 PCR Nasal Coronavir OC43 PCR Nasal Enterovir/Rhinovir PCR Nasal Influenza B PCR Nasal Influenza A PCR Nasal Parainfluen 1 PCR Nasal Parainfluen 2 PCR Nasal Parainfluen 3 PCR Nasal Parainfluen 4 PCR Nasal RSV (PCR) Nasal B.pertussis DNA PCR Nasal C.pneumoniae (PCR) [place] Human Metapneumo PCR Nasal M.pneumoniae (PCR) Nasal SARS-CoV-2 (PCR) Blood Type Blood Type Recheck Antibody Screen Crossmatch IS Only 09/22/21 09/22/21 09/22/21 13:56 13:56 14:52 WBC RBC Hgb Hct MCV MCH MCHC RDW Plt Count MPV Neut # (Auto) Lymph # (Auto) [place] # (Auto) Eos # (Auto) Baso # (Auto) Absolute Nucleated RBC Nucleated RBC % PT INR APTT Sodium 138 Potassium 3.9 Chloride 107 Carbon Dioxide 23 Anion Gap 8.0 BUN 22 H Creatinine 1.4 H Estimated GFR (MDRD) 50 L Glucose 106 H Calcium 8.6 Total Bilirubin 0.3 AST 28 ALT 29 Alkaline Phosphatase 72 Total Protein 6.8 Albumin 3.0 L Globulin 3.8 Albumin/Globulin Ratio 0.8 L Urine Color Urine Clarity Urine pH Ur Specific [place] Urine Protein Urine Glucose (UA) Urine Ketones Urine Occult Blood Urine Nitrite Urine Bilirubin Urine Urobilinogen Ur Leukocyte Esterase Urine RBC Urine WBC Ur Squamous Epith Cells Urine Bacteria Ur Microscopic Review Urine Culture Comments Nasal Adenovirus (PCR) NOT DETECTED Nasal B. parapertussis DNA (PCR) NOT DETECTED Nasal Coronavir 229E PCR NOT DETECTED Nasal Coronavir HKU1 PCR NOT DETECTED Nasal Coronavir NL63 PCR NOT DETECTED Nasal Coronavir OC43 PCR NOT DETECTED Nasal Enterovir/Rhinovir PCR NOT DETECTED Nasal Influenza B PCR NOT DETECTED Nasal Influenza A PCR NOT DETECTED Nasal Parainfluen 1 PCR NOT DETECTED Nasal Parainfluen 2 PCR NOT DETECTED Nasal Parainfluen 3 PCR NOT DETECTED Nasal Parainfluen 4 PCR NOT DETECTED Nasal RSV (PCR) NOT DETECTED Nasal B.pertussis DNA PCR NOT DETECTED Nasal C.pneumoniae (PCR) NOT DETECTED [place] Human Metapneumo PCR NOT DETECTED Nasal M.pneumoniae (PCR) NOT DETECTED Nasal SARS-CoV-2 (PCR) NOT DETECTED Blood Type Blood Type Recheck A POSITIVE Antibody Screen Crossmatch IS Only 09/22/21 15:00 WBC RBC Hgb Hct MCV MCH MCHC RDW Plt Count MPV Neut # (Auto) Lymph # (Auto) [place] # (Auto) Eos # (Auto) Baso # (Auto) Absolute Nucleated RBC Nucleated RBC % PT INR APTT Sodium Potassium Chloride Carbon Dioxide Anion Gap BUN Creatinine Estimated GFR (MDRD) Glucose Calcium Total Bilirubin AST ALT Alkaline Phosphatase Total Protein Albumin Globulin Albumin/Globulin Ratio Urine Color Urine Clarity Urine pH Ur Specific [place] Urine Protein Urine Glucose (UA) Urine Ketones Urine Occult Blood Urine Nitrite Urine Bilirubin Urine Urobilinogen Ur Leukocyte Esterase Urine RBC Urine WBC Ur Squamous Epith Cells Urine Bacteria Ur Microscopic Review Urine Culture Comments Nasal Adenovirus (PCR) Nasal B. parapertussis DNA (PCR) Nasal Coronavir 229E PCR Nasal Coronavir HKU1 PCR Nasal Coronavir NL63 PCR Nasal Coronavir OC43 PCR Nasal Enterovir/Rhinovir PCR Nasal Influenza B PCR Nasal Influenza A PCR Nasal Parainfluen 1 PCR Nasal Parainfluen 2 PCR Nasal Parainfluen 3 PCR Nasal Parainfluen 4 PCR Nasal RSV (PCR) Nasal B.pertussis DNA PCR Nasal C.pneumoniae (PCR) [place] Human Metapneumo PCR Nasal M.pneumoniae (PCR) Nasal SARS-CoV-2 (PCR) Blood Type A POSITIVE Blood Type Recheck Antibody Screen NEGATIVE Crossmatch IS Only See Detail PD MEDICAL DECISION MAKING - ED course Complexity details: reviewed results, re-evaluated patient, considered differential, d/w patient, 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 Also found to be anemic. He is asymptomatic at the anemia, but given his ongoing bleeding, a blood transfusion of 1 unit of packed red blood cells was given. The patient had a similar presentation of this back in April of last year, was transferred to [facility] at that time. He had a relatively normal cystoscopy. I discussed the case with Dr. Tucker, urology at [facility] in [place] who recommends CBI and follow-up likely as an outpatient as there are no beds available at this time. I then contacted the [facility], spoke with Dr. Bull, urology who also recommends CBI until clear. Transfuse as needed. Recommend starting on antibiotics given the infectious etiology at last presentation. He states that if the CBI clears, the hemoglobin is stable, the patient can be discharged to follow-up with Dr. Kerline Olivo at the [facility] as an outpatient. The patient is no longer on blood thinners. He had been on Plavix and Eliquis at the time of last transfer. He stopped taking these last April. A three-way catheter was placed, clots were removed, and CBI started. It is clearing and currently the urine is light pink in color at 2150. Patient was given Rocephin. No beds are available anywhere in the region at this time. Discussed the case with Dr. Mcqueen, hospitalist who accepts. This document was made in part using voice recognition software. While efforts are made to proofread this document, sound alike and grammatical errors may occur. Departure - Departure Disposition: ED Place in Observation Clinical Impression: Hematuria Qualifiers: Hematuria type: gross Qualified Code(s): R31.0 - Gross hematuria Anemia Qualifiers: Anemia type: unspecified type Qualified Code(s): D64.9 - Anemia, unspecified UTI (urinary tract infection) Qualifiers: Urinary tract infection type: acute cystitis Hematuria presence: with hematuria Qualified Code(s): N30.01 - Acute cystitis with hematuria Condition: Good
[2021-09-22 13:54] LABS: BILIRUBIN,URINE NEGATIVE (NEGATIVE); GLUCOSE, URINE (UA) NEGATIVE (NEGATIVE); KETONES,URINE (UA) NEGATIVE (NEGATIVE); LEUKOCYTE ESTERASE, URINE SMALL (NEGATIVE); NITRITE,URINE NEGATIVE (NEGATIVE); OCCULT BLOOD,URINE LARGE (NEGATIVE); PH,URINE 6.5 PH (5.0-7.5); PROTEIN,URINE >=300 mg/dL (NEGATIVE); UROBILINOGEN,URINE 0.2 (NORMAL) E.U./dL (NORMAL)
[2021-09-22 14:04] LABS: CLARITY,URINE BLOODY (CLEAR)
[2021-09-22 14:08] LABS: BASOPHILS % (AUTO) 0.4 %; EOSINOPHILS # (AUTO) 0.2 10^3/uL (0.0-0.7); EOSINOPHILS % (AUTO) 2.9 %; HGB - HEMOGLOBIN 7.4 g/dL (14.0-18.0); LYMPHOCYTES # (AUTO) 0.6 10^3/uL (1.5-3.5); LYMPHOCYTES % (AUTO) 11.5 %; MEAN CORPUSCULAR HEMOGLOBIN 19.3 pg (27.0-31.0); MEAN CORPUSCULAR HGB CONC 27.4 g/dL (32.0-36.0); MEAN CORPUSCULAR VOLUME 70.5 fL (80.0-94.0); MEAN PLATELET VOLUME 9.6 fL (7.4-11.4); MONOCYTES # (AUTO) 0.7 10^3/uL (0.0-1.0); MONOCYTES % (AUTO) 12.9 %; NEUTROPHILS % (AUTO) 72.1 %; PLT - PLATELET COUNT 174 10^3/uL (130-450); RED BLOOD COUNT 3.83 10^6/uL (4.70-6.10); RED CELL DISTRIBUTION WIDTH 18.8 % (12.0-15.0); WHITE BLOOD COUNT 5.5 x10^3/uL (4.8-10.8)
[2021-09-22 14:10] LABS: INR 1.3 (0.8-1.2); PT - PROTHROMBIN TIME 14.3 secs (9.9-12.6)
[2021-09-22 14:17] LABS: ALBUMIN/GLOBULIN RATIO 0.8 (1.0-2.2); BILIRUBIN,TOTAL 0.3 mg/dL (0.2-1.0); CALCIUM 8.6 mg/dL (8.5-10.3); CREATININE 1.4 mg/dL (0.6-1.2); PARTIAL THROMBOPLASTIN TIME 28.7 secs (24.9-33.3); POTASSIUM 3.9 mmol/L (3.5-5.0); TOTAL PROTEIN 6.8 g/dL (6.7-8.2)
[2021-09-22 14:17] LABS: BACTERIA,URINE None Seen /HPF (None Seen); RBC,URINE TNTC /HPF (0-5); SQUAMOUS EPITHELIAL CELL,UR NONE SEEN (<= Few); WBC,URINE 0-3 /HPF (0-3)
[2021-09-22] MEDS ORDERED: HYDROmorphone 1 MG/ML CARPUJECT IVP STA ×2 (15:12→20:40)
[2021-09-22 16:11] LABS: B. PARAPERTUSSIS- RESP PCR PAN NOT DETECTED; B. PERTUSSIS- RESP PCR PANEL NOT DETECTED; C. PNEUMONIAE- RESP PCR PANEL NOT DETECTED; CORONAVIRUS 229E-RESP PCR NOT DETECTED; CORONAVIRUS HKU1-RESP PCR NOT DETECTED; CORONAVIRUS NL63-RESP PCR NOT DETECTED; CORONAVIRUS OC43-RESP PCR NOT DETECTED; HUMAN METAPNEUMOVIRUS NOT DETECTED; INFLUENZA A- RESP PCR PANEL NOT DETECTED; INFLUENZA B - RESP PCR PANEL NOT DETECTED; M. PNEUMONIAE- RESP PCR PANEL NOT DETECTED; PARAINFLUENZA VIRUS 1 NOT DETECTED; PARAINFLUENZA VIRUS 2 NOT DETECTED; PARAINFLUENZA VIRUS 3 NOT DETECTED; PARAINFLUENZA VIRUS 4 NOT DETECTED; RHINOVIRUS/ENTEROVIRUS NOT DETECTED; RSV- RESP PCR PANEL NOT DETECTED; SARS-CoV-2 -RESP PCR PANEL NOT DETECTED
[2021-09-22] MEDS ORDERED: cefTRIAXone 1 GM VIAL IVP STA (17:49)
[2021-09-22] MEDS ORDERED: OXYBUTYNIN 5MG TABLET PO STA (20:43)
[2021-09-22] MEDS ORDERED: OXYBUTYNIN 5MG TABLET PO SCH (21:00)
[2021-09-22] MEDS ORDERED: ONDANSETRON 4 MG/2 ML VIAL IVP PRN (21:40)
[2021-09-22] MEDS ORDERED: ONDANSETRON ODT 4 MG TABLET TL PRN (21:40)
[2021-09-22] MEDS ORDERED: SODIUM CHLORIDE FLUSH 0.9% 10 ML SYRINGE IVP PRN (21:40)
--- NOTE | 2021-09-22 21:59 | HISTORY & PHYSICAL EXAMINATION ---
Chief Complaint - Chief Complaint Chief Complaint: urgency, grequency, urine retention w blood clots History of Present Illness - Admitted From Admitted From:: Home - [facility] obtained from: Dr. Edge, patient, and [facility] and the patient's Exam Limitations: none - History of Present Illness HPI Comment/Other: The patient has been having symptoms of urinary retention and hematuria dating to early 2020. Prior to his evaluation in the emergency room May 20 he is already had a CT of the abdomen and pelvis in October 2020 and in May 06, 2021. He was being seen by a Urologist in [place] but that Urologist doesn't have privileges at a hospital and has left the area so he is without regular follow up for now. May 19, 2021 presented to our emergency room with hematuria, clots, possible UTI. Was noted to have anemia. Received irrigation and sent home with antibiotics. Returned May 20 with continued gross hematuria, increasing symptoms of urinary retention. Also had worsening anemia. He was sent ED to ED transfer for urology evaluation at . He was losing quite a bit of blood with symptomatic anemia and had continuous bladder irrigation. Had a cystoscopy done, and perioperatively had an NSTEMI. Started on Plavix. On cystoscopy clots were seen within the bladder wall despite irrigation prior to the cystoscopy. 700 cc of clot was removed and there seemed to be clots in the right ureter. It was a 3-hour procedure. No obvious tumors. There is a suspicion that he is bleeding from the right ureter but plain CT shows no o bvious source. He had no blood for a day and a half prior to discharge. Discharge May 24. Returned to our emergency room later on May 24, after discharge from the [facility]. He was again retaining urine with inability to urinate because of blood clots. It was difficult to contact urology. 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 Finally his personal urologist called and said he needed a higher level of care and urology at [facility] was again consulted. They felt that the patient should be hospitalized for further evaluation and because of his recent NSTEMI. No beds were available. They finally did another ED to ED transfer on May 26. After that discharge, he stopped taking any blood thinners except aspirin. He says it just made bleeding worse so he opted not to do Plavix. Only does aspirin. He does name his medications of carvedilol, atorvastatin, and lisinopril. When I asked him about amiodarone he states that he thinks he stopped taking that years ago and he does not take it anymore.Right now is showing up on his emergency room medication list. He now comes back to our emergency room. We do not have the records from the discharge May 26. The and he have no insight as to the cause and they know is that he was cauterized. He tells me that the right side of his bladder was particularly problematic. When they scraped off the blood that was dried up on the right side, they cause fresh bleeding to occur. But he stabilized and had no further bleeding from that April discharged to now. He has dysuria, hematuria and urinary frequency that started this morning. He was clear last night before bedtime. No new meds or symptoms. He is anemic to 7.4 g of hemoglobin. When he was seen in May 20 he was 7.6, May 24 he was 8.7. At discharge and transfer to another emergency room on May 26 he was 8.9. He is hemodynamically stable, not tachycardic. He is afebrile. Neverthel ess having clots come out of his bladder once a Rivera was reinserted. We were initially called to admit this patient but we declined the admission on the basis of the patient being on anticoagulation. However we have verified that he is no longer on Plavix. The only anticoagulation on is aspirin. [facility] urology was again called. They state that they are not going to see this patient emergently. They will be glad to see him once his hematuria resolves with CBI. They will see him in the outpatient setting. As such we were called again to place this patient in observation with CBI, observe for the anemia to see if it worsens, and then discharge. The patient is without chest pain, shortness of breath. No abdominal pain. All of his symptoms centered around urgency, frequency, retention, hematuria, blood clots. There is no flank pain. History - Past Medical History Cardiovascular: reports: Hypertension, High cholesterol, NC (1st NC around 2009. Sees Dr. Luis Salazar. No stress test done after NSTEMI 04/2021. 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 Mom in her 80s of interstitial pulmonary fibrosis. One brother and one sister. He is not in contact with his sister but he thinks she is healthy. His brother is definitely healthy. No major medical illnesses. No children. Living arrangement: At home Living Situation: With spouse/s.o. 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 Gave up [facility] of [place]. 17-18 years ago. Occ alcohol, but no hx of alcohol or recreational substance abuse. Live in their own home. [place] for [employer] to work in the field for years until he retired. No children and rely on nephew sometimes but he lives in [place]. 's Sister Teresita lives in [place]. Right now their only support is each other. - Substance History Use: Uses substance without health or social issues: NONE Abuse: Recurrent use of substance despite neg consequences: NONE Dependence: Experiences withdrawal or developed tolerances: NONE - POLST Patient has POLST: No POLST Status: DNR (He wants all interventions done for any illness until he stops breathing or his heart stops and then he does not want chest compressions or intubation for cardiopulmonary arrest) Meds/Allgy - Home Medications Home Medications: Ambulatory Orders Medication Instructions Recorded Confirmed Aspirin Chewable [St Rodolfo 81 mg PO DAILY 04/24/19 09/22/21 Aspirin] lisinopriL [Prinivil] 10 mg PO DAILY 04/24/19 09/22/21 Acetaminophen 500 mg PO DAILY PRN 05/07/19 09/22/21 Amiodarone [Pacerone] 100 mg PO DAILY 05/07/19 09/22/21 Carvedilol [Coreg] 12.5 mg PO BID 05/07/19 09/22/21 Rosuvastatin Calcium [Crestor] 40 mg PO DAILY 05/07/19 09/22/21 - Allergies Allergies/Adverse Reactions: Allergies Allergy/AdvReac Type Severity Reaction Status Date / Time No Known Drug Allergies Allergy Verified 09/22/21 13:14 Review of Systems - Constitutional Constitutional: reports: Weight loss (trying to lose weight and get in shape). denies: Fatigue, Fever, Chills - Eyes Eyes: reports: Vision loss (wears glasses). denies: Pain, Irritation, Blurred vision - Ears, Nose & Throat Ears, Nose & Throat: denies: Ear pain, Hearing loss, Hearing aids, Tinnitus, Postnasal drainage, Sore throat, Hoarseness - Cardiovascular Cariovascular: reports: Other (he can't remember why he used amiodarone but hasn't used it in a while). denies: Irregular heart rate, Palpitations, Chest pain, Edema, Lightheadedness, Syncope - Respiratory Respiratory: denies: Cough, Sputum production, Wheezing, Snoring - Gastrointestinal Gastrointestinal: reports: Abdominal pain (suprapubic), Reflux/heartburn. denies: Abdominal distention, Constipation, Diarrhea, Bloating, Poor appetite - Genitourinary Genitourinary: reports: Dysuria, Frequency, Urgency, Hematuria, Nocturia - Musculoskeletal Musculoskeletal: denies: Muscle pain, Back pain, Muscle aches, Stiffness, Gout, Joint pain - Integumentary Integumentary: denies: Rash, Pruritis, Lesions, Dryness - Neurological Neurological: denies: General weakness, Focal weakness, Headache, Dizziness, Memory problems, Pre-existing deficit - Psychiatric Psychiatric: denies: Depression, Anxiety, Suicidal Prior Level of Functionality: When he is not in the hospital with hematuria and bladder blood clots, he regards himself is completely independent. Drives a car. Fixes things around the house. Pays bills. And does not need any durable medical equipment to get around. Exam - Vital Signs Reviewed Vital Signs: Yes Vital Signs: Vital Signs x48h Temp Pulse Resp BP Pulse Ox 09/22/21 20:45 37.4 C 70 18 134/63 H 09/22/21 20:27 37.5 C 73 20 141/68 H 97 09/22/21 19:47 36.8 C 71 19 129/58 L 97 09/22/21 17:58 37.4 C 64 17 122/55 L 09/22/21 17:48 37 C 66 18 123/58 L 09/22/21 17:34 37.5 C 71 18 119/91 H 96 - Physical Exam General Appearance: positive: Alert, Moderate distress (From intermittent bladder spasm), Other (5 foot 8 inches tall, 82 kg, male pattern baldness, wearing glasses, mustache, unshaven.) Eyes Bilateral: positive: PERRL, EOMI ENT: positive: Pharynx nml, No signs of dehydration, Other (Missing middle upper tooth) Neck: positive: No JVD. negative: Stiff neck Respiratory: positive: No respiratory distress. negative: Wheezes, Rales, Rhonchi Cardiovascular: positive: Regular rate & rhythm. negative: Systolic murmur, Gal lop/S4, Friction rub Peripheral Pulses: positive: 1+ Abdomen: positive: No organomegaly, Nml bowel sounds, Tenderness (Mild distention and tenderness in the suprapubic area. I attributed some bladder spasm), Other (Rivera in place draining reddish-brown urine) Skin: positive: Warm, Dry Extremities: positive: Full ROM, No pedal edema. negative: Joint swelling Neurologic/Psychiatric: positive: Oriented x3, CN's nml (2-12), Motor nml, Sensation nml Conclusion/Plan - Problem List (1) Hemorrhagic cystitis Conclusion/Plan: This is occurring in a gentleman who has no obvious source of this. At most is attributed to a UTI but is not really clear in the medical record that that is what were treating from April to now. There is also information that he was bleeding from the right ureter. We were hesitant to admit him to our service since we were told the patient was on Plavix. Patient is not on Plavix only on aspirin. [facility] urology today makes it clear to Dr. Edge that the patient will not get a cystoscopy with them in this acute episode. They would rather the patient be monitored for acute blood loss anemia, have continuous bladder irrigation, and they will see him in the outpatient setting. Even if he were transferred to the [facility] they would not be offering cystoscopy during his stay as relayed by our ER MD, Dr. Edge. As such we feel that we can deliver the same care here at this moment in time. Plan: Observation status Continuous bladder irrigation until clear Empiric antibiotics Get records from [facility] for the May 26 admission to see if we can verify the source of bleeding (2) Acute blood loss anemia Conclusion/Plan: With a previous history of an NSTEMI, most likely induced by acute blood loss anemia, and continued clots coming out of his CBI, Dr. Barksdale opted to transfuse the patient had a hemoglobin of 7.4. He is received 1 unit. I will continue to check hemogram every 6 hours. Transfuse as needed. (3) Urinary retention Conclusion/Plan: Abdomen pelvis CT in October 2020 had mild bilateral hydroureteronephrosis. No urolithiasis. He had a large amount of soft tissue increased attenuation within the lumen of the bladder. At that time they were attributing it to clot but could not exclude a soft tissue mass. No comment on the prostate. Abdomen pelvis CT was repeated May 06, 2021. This is before his swallow a in the emergency room May 20 and May 24. That abdomen pelvis CT s howed a both kidneys that were normal in size and enhancement. Contrast-filled renal calyces were normal in morphology. Contrast-filled portions of both ureters were mildly distended bilaterally. Left parapelvic renal cyst were present. The bladder wall had moderate thickening as well as moderate surrounding fat stranding. There was superimposed focal nodular thickening of the posterior inferior urinary bladder at the trigones.Again, the prostate was not mentioned. As such, my assumption is that his urinary retention is strictly due to retention of clots causing him to be unable to urinate. CBI should help.I will also get records from [facility] to see if they did a second cystoscopy with the May 26 admission. (4) History of non-ST elevation myocardial infarction (NSTEMI) Conclusion/Plan: Again, will need to verify the patient had a post NSTEMI stress test. My question is: Is at risk for another NC especially in view of more anemia? He is on aspirin, Crestor, Coreg and lisinopril. He does not remember a stress test, nor does his . They have seen a band manager at [facility] since he had his 1st heart attack approximately 2009. They are not quite sure the year. Dr. Luis Salazar and was notified about his NSTEMI at [facility] and they think Dr. Salazar was going to order some blood work but they are not sure about that. Troponins have not been checked. I will order those. (5) Chronic kidney disease (CKD), stage III (moderate) Conclusion/Plan: His creatinine was worse with his April 2021 evaluation in the emergency room. At that time creatinine was 2.6. He seems to have drifted down to his baseline which is between 1.3 and 1.5. Plan: Continue to monitor to make sure obstruction is not worse Qualifiers: Chronic kidney disease stage 3 subtype: stage 3a (GFR 45-59) Qualified Code (s): N18.31 - Chronic kidney disease, stage 3a - Lab Results Lab results reviewed: Yes Romulo Bones: 09/22/21 22:53 09/22/21 13:56 Core Measures - Anticipated LOS I expect patient to be DC'd or transferred within 96 hours.: Yes - DVT/VTE - Prophylaxis VTE/DVT Device ordered at admit?: Yes
[2021-09-22 22:58] LABS: HCT - HEMATOCRIT 31.6 % (42.0-52.0); MEAN CORPUSCULAR HEMOGLOBIN 20.4 pg (27.0-31.0); MEAN CORPUSCULAR HGB CONC 28.5 g/dL (32.0-36.0); MEAN CORPUSCULAR VOLUME 71.5 fL (80.0-94.0); MEAN PLATELET VOLUME 9.5 fL (7.4-11.4); RED BLOOD COUNT 4.42 10^6/uL (4.70-6.10); RED CELL DISTRIBUTION WIDTH 19.6 % (12.0-15.0); WHITE BLOOD COUNT 6.4 x10^3/uL (4.8-10.8)
[2021-09-22] MEDS: ACETAMINOPHEN 325 MG TABLET PO PRN (23:30)
[2021-09-22] MEDS: oxyCODONE 5 MG TABLET PO PRN (23:31)
[2021-09-23] MEDS: SODIUM CHLORIDE FLUSH 0.9% 10 ML SYRINGE IVP SCH ×3 (02:39→16:54)
[2021-09-23] MEDS: ACETAMINOPHEN 325 MG TABLET PO PRN ×3 (03:12→20:47)
[2021-09-23] MEDS: oxyCODONE 5 MG TABLET PO PRN ×2 (03:13→09:04)
[2021-09-23] MEDS: BACLOFEN 10 MG TABLET PO PRN ×2 (03:24→20:47)
[2021-09-23 05:16] LABS: HCT - HEMATOCRIT 28.9 % (42.0-52.0); HGB - HEMOGLOBIN 8.3 g/dL (14.0-18.0); MEAN CORPUSCULAR HEMOGLOBIN 20.5 pg (27.0-31.0); MEAN CORPUSCULAR HGB CONC 28.7 g/dL (32.0-36.0); MEAN CORPUSCULAR VOLUME 71.4 fL (80.0-94.0); MEAN PLATELET VOLUME 10.3 fL (7.4-11.4); RED BLOOD COUNT 4.05 10^6/uL (4.70-6.10); RED CELL DISTRIBUTION WIDTH 19.4 % (12.0-15.0)
[2021-09-23 05:24] LABS: CALCIUM 8.4 mg/dL (8.5-10.3); CREATININE 1.5 mg/dL (0.6-1.2); POTASSIUM 3.7 mmol/L (3.5-5.0)
[2021-09-23 07:50] LABS: ABSOLUTE RETICS # AUTO 0.046 10^6/uL (0.020-0.110); RETICULOCYTE COUNT % (AUTO) 1.16 % (0.5-2.3)
[2021-09-23 08:11] LABS: FERRITIN 15.2 ng/mL (23.9-336.2)
[2021-09-23 08:15] LABS: % IRON SATURATION 5 % (20-50); IRON 20 ug/dL (45-182); TOTAL IRON BINDING CAPACITY 370 ug/dL (250-450); TRANSFERRIN 264 mg/dL (180-329)
[2021-09-23] MEDS: MORPHINE 2 MG/ML CARPUJECT IVP PRN ×2 (08:34→20:47)
[2021-09-23] MEDS: OXYBUTYNIN 5MG TABLET PO SCH ×2 (09:05→20:40)
[2021-09-23] MEDS: lisinopriL 5 MG TABLET PO SCH (09:05)
[2021-09-23] MEDS: TAMSULOSIN 0.4 MG CAPSULE PO SCH (09:14)
[2021-09-23] MEDS: cefTRIAXone 1 GM in SODIUM CHLORIDE 0.9% MINIBAG 100 ML IV SCH (09:31)
[2021-09-23] MEDS ORDERED: carvediloL 12.5 MG TABLET PO SCH (11:00)
[2021-09-23 11:21] LABS: HCT - HEMATOCRIT 28.3 % (42.0-52.0); HGB - HEMOGLOBIN 8.2 g/dL (14.0-18.0)
[2021-09-23] MEDS ORDERED: lisinopriL 5 MG TABLET PO SCH (13:00)
[2021-09-23] MEDS ORDERED: AMIODARONE 200 MG TABLET PO SCH (13:00)
[2021-09-23] MEDS ORDERED: ASPIRIN CHEW 81 MG TABLET PO SCH (13:00)
--- NOTE | 2021-09-23 14:13 | PROVIDER PROGRESS NOTE ---
Assessment/Plan - Problem List (1) Hemorrhagic cystitis Assessment/Plan: (1) Hemorrhagic cystitis Conclusion/Plan: This is occurring in a gentleman who has no obvious source of this. At most is attributed to a UTI but is not really clear in the medical record that that is what were treating from April to now. There is also information that he was bleeding from the right ureter. We were hesitant to admit him to our service since we were told the patient was on Plavix. Patient is not on Plavix only on aspirin. [facility] urology today makes it clear to Dr. Edge that the patient will not get a cystoscopy with them in this acute episode. They would rather the patient be monitored for acute blood loss anemia, have continuous bladder irrigation, and they will see him in the outpatient setting. Even if he were transferred to the [facility] they would not be offering cystoscopy during his stay as relayed by our ER MD, Dr. Edge. As such we feel that we can deliver the same care here at this moment in time. Plan: Observation status Continuous bladder irrigation until clear Empiric antibiotics Get records from [facility] for the May 26 admission to see if we can verify the source of bleeding (2)elevated troponin. (3) Acute blood loss anemia Conclusion/Plan: With a previous history of an NSTEMI, most likely induced by acute blood loss anemia, and continued clots coming out of his CBI, Dr. Barksdale opted to transfuse the patient had a hemoglobin of 7.4. He is received 1 unit. I will continue to check hemogram every 6 hours. Transfuse as needed. (4) Urinary retention Conclusion/Plan: Abdomen pelvis CT in October 2020 had mild bilateral hydroureteronephrosis. No urolithiasis. He had a large amount of soft tissue increased attenuation within the lumen of the bladder. At that time they were attributing it to clot but could not exclude a soft tissue mass. No comment on the prostate. Abdomen pelvis CT was repeated May 06, 2021. This is before his swallow a in the emergency room May 20 and May 24. That abdomen pelvis CT showed a both kidneys that were normal in size and enhancement. Contrast-filled renal calyces were normal in morphology. Contrast-filled portions of both ureters were mildly distended bilaterally. Left parapelvic renal cyst were present. The bladder wall had moderate thickening as well as moderate surrounding fat stranding. There was superimposed focal nodular thickening of the posterior inferior urinary bladder at the trigones.Again, the prostate was not mentioned. As such, my assumption is that his urinary retention is strictly due to retention of clots causing him to be unable to urinate. CBI should help.I will also get records from [facility] to see if they did a second cystoscopy with the May 26 admission. (5) History of non-ST elevation myocardial infarction (NSTEMI) Conclusion/Plan: Again, will need to verify the patient had a post NSTEMI stress test. My quest ion is: Is at risk for another ME especially in view of more anemia? He is on aspirin, Crestor, Coreg and lisinopril. He does not remember a stress test, nor does his . They have seen a shuttle spotter at [facility] since he had his 1st heart attack approximately 2009. They are not quite sure the year. Dr. Luis Salazar and was notified about his NSTEMI at [facility] and they think Dr. Salazar was going to order some blood work but they are not sure about that. Troponins have not been checked. I will order those. (6) Chronic kidney disease (CKD), stage III (moderate) Conclusion/Plan: His creatinine was worse with his April 2021 evaluation in the emergency room. At that time creatinine was 2.6. He seems to have drifted down to his baseline which is between 1.3 and 1.5. Plan: Continue to monitor to make sure obstruction is not worse - Current Meds Current Meds: Current Medications Generic Name Dose Route Start Last Admin Trade Name Brandonq PRN Reason Stop Dose Admin Acetaminophen 650 mg 09/22/21 21:40 09/23/21 09:04 Acetaminophen 325 Mg Tablet PO 650 mg Q4HR PRN Administration Pain 1 to 4 Amiodarone HCl 100 mg 09/23/21 13:00 09/23/21 13:15 Amiodarone 200 Mg Tablet PO Not Given DAILY SONAM Aspirin 81 mg 09/23/21 13:00 09/23/21 13:14 Aspirin Chew 81 Mg Tablet PO 81 mg DAILY SONAM Administration Baclofen 10 mg 09/23/21 00:21 09/23/21 03:24 Baclofen 10 Mg Tablet PO 10 mg TID PRN Administration Bladder Spasms Ceftriaxone Sodium 1 gm/ 100 mls @ 200 mls/hr 09/23/21 09:30 09/23/21 10:25 Sodium Chloride IV Infused DAILY SONAM Infusion Lisinopril 10 mg 09/23/21 09:00 09/23/21 09:05 Lisinopril 5 Mg Tablet PO 10 mg DAILY SONAM Administration Morphine Sulfate 2 mg 09/23/21 06:52 09/23/21 08:34 Morphine 2 Mg/Ml Carpuject IVP 2 mg Q2HR PRN Administration PAIN Oxybutynin Chloride 5 mg 09/23/21 09:00 09/23/21 09:05 Oxybutynin 5mg Tablet PO 5 mg BID SONAM Administration Oxycodone HCl 5 mg 09/22/21 21:40 09/23/21 09:04 Oxycodone 5 Mg Tablet PO 5 mg Q4HR PRN Administration Pain 5 to 7 Sodium Chloride 10 ml 09/23/21 01:00 09/23/21 09:05 Sodium Chloride Flush 0.9% 10 Ml Syringe IVP 10 ml 0100,0900,1700 SONAM Administration Tamsulosin HCl 0.4 mg 09/23/21 09:00 09/23/21 09:14 Tamsulosin 0.4 Mg Capsule PO 0.4 mg DAILY SONAM Administration - Lab Result Fish Bone Diagrams: 09/23/21 11:16 09/23/21 04:58 - Additional Planning My Orders: My Active Orders 09/23/21 09:30 cefTRIAXone [Rocephin] 1 gm Sodium Chloride 0.9% Minibag [Normal Saline 0.9% Minibag] 100 ml IV DAILY 09/23/21 10:26 Echo Transthoracic Complete [ECHO] Stat 09/23/21 10:46 Telemetry- [RC] Q4HR 09/23/21 13:00 Amiodarone [Pacerone] 100 mg PO DAILY Aspirin Chewable [St Rodolfo Aspirin] 81 mg PO DAILY 09/23/21 14:08 carvediloL [Coreg] 12.5 mg PO BID 09/23/21 15:00 Ferrous Gluconate [Fergon] 324 mg PO DAILYWM 09/23/21 16:00 TROPONIN I HIGH SENSITIVITY [IAI] Timed 09/23/21 17:00 H&H [HEMOGLOBIN AND HEMATOCRIT] [HEME] Q6H 09/23/21 21:00 Atorvastatin [Lipitor] 40 mg PO QPM 09/23/21 23:00 H&H [HEMOGLOBIN AND HEMATOCRIT] [HEME] Q6H 09/24/21 05:00 BMP - BASIC METABOLIC PANEL [CHEM] DAILYLAB CBC - COMP BLD CT W/AUTO DIFF [HEME] DAILYLAB H&H [HEMOGLOBIN AND HEMATOCRIT] [HEME] Q6H 09/24/21 11:00 H&H [HEMOGLOBIN AND HEMATOCRIT] [HEME] Q6H 09/24/21 17:00 H&H [HEMOGLOBIN AND HEMATOCRIT] [HEME] Q6H 09/24/21 23:00 H&H [HEMOGLOBIN AND HEMATOCRIT] [HEME] Q6H 09/25/21 05:00 BMP - BASIC METABOLIC PANEL [CHEM] DAILYLAB CBC - COMP BLD CT W/AUTO DIFF [HEME] DAILYLAB 09/26/21 05:00 BMP - BASIC METABOLIC PANEL [CHEM] DAILYLAB CBC - COMP BLD CT W/AUTO DIFF [HEME] DAILYLAB 09/27/21 05:00 BMP - BASIC METABOLIC PANEL [CHEM] DAILYLAB CBC - COMP BLD CT W/AUTO DIFF [HEME] DAILYLAB 09/28/21 05:00 BMP - BASIC METABOLIC PANEL [CHEM] DAILYLAB CBC - COMP BLD CT W/AUTO DIFF [HEME] DAILYLAB Objective Vital Signs: Vital Signs - 24 hr 09/22/21 09/22/21 09/22/21 17:34 17:48 17:58 Temperature 37.5 C 37 C 37.4 C Heart Rate 71 66 64 Heart Rate [ Radial] Respiratory 18 18 17 Rate Blood Pressure 119/91 H 123/58 L 122/55 L Blood Pressure [Right Brachial artery] O2 Saturation 96 09/22/21 09/22/21 09/22/21 19:47 20:27 20:45 Temperature 36.8 C 37.5 C 37.4 C Heart Rate 71 73 70 Heart Rate [ Radial] Respiratory 19 20 18 Rate Blood Pressure 129/58 L 141/68 H 134/63 H Blood Pressure [Right Brachial artery] O2 Saturation 97 97 09/22/21 09/23/21 09/23/21 22:28 00:00 03:31 Temperature 36.8 C 37.4 C 36.8 C Heart Rate Heart Rate [ 77 65 80 Radial] Respiratory 12 14 18 Rate Blood Pressure Blood Pressure 141/64 H 123/47 L 149/72 H [Right Brachial artery] O2 Saturation 93 91 L 92 09/23/21 09/23/21 09/23/21 08:22 08:38 13:00 Temperature 36.1 C L 36.3 C L Heart Rate Heart Rate [ 66 Radial] Respiratory 17 17 Rate Blood Pressure Blood Pressure 138/58 H 121/47 L [Right Brachial artery] O2 Saturation 95 92 Oxygen O2 Source Room air I&O (Last 24 Hrs): Intake and Output Totals x24h 09/21/21 09/22/21 09/23/21 23:59 23:59 23:59 Intake Total 2650 5200 Output Total 3000 5750 Balance -350 -550 - Results Results: Laboratory Results WBC 5.0 x10^3/uL (4.8-10.8) 09/23/21 04:58 RBC 4.00 10^6/uL (4.70-6.10) L 09/23/21 04:58 RBC 4.05 10^6/uL (4.70-6.10) L 09/23/21 04:58 Hgb 8.2 g/dL (14.0-18.0) L 09/23/21 11:16 Hct 28.3 % (42.0-52.0) L 09/23/21 11:16 MCV 71.4 fL (80.0-94.0) L 09/23/21 04:58 MCH 20.5 pg (27.0-31.0) L 09/23/21 04:58 MCHC 28.7 g/dL (32.0-36.0) L 09/23/21 04:58 RDW 19.4 % (12.0-15.0) H 09/23/21 04:58 Plt Count 177 10^3/uL (130-450) 09/23/21 04:58 MPV 10.3 fL (7.4-11.4) 09/23/21 04:58 Reticulocyte % (Auto) 1.16 % (0.5-2.3) 09/23/21 04:58 Neut # (Auto) 4.0 10^3/uL (1.5-6.6) 09/22/21 13:56 Lymph # (Auto) 0.6 10^3/uL (1.5-3.5) L 09/22/21 13:56 [place] # (Auto) 0.7 10^3/uL (0.0-1.0) 09/22/21 13:56 Eos # (Auto) 0.2 10^3/uL (0.0-0.7) 09/22/21 13:56 Baso # (Auto) 0.0 10^3/uL (0.0-0.1) 09/22/21 13:56 Absolute Nucleated RBC 0.00 x10^3/uL 09/22/21 13:56 Nucleated RBC % 0.0 /100WBC 09/22/21 13:56 Absolute Retic 0.046 10^6/uL (0.020-0.110) 09/23/21 04:58 PT 14.3 secs (9.9-12.6) H 09/22/21 13:56 INR 1.3 (0.8-1.2) H 09/22/21 13:56 APTT 28.7 secs (24.9-33.3) 09/22/21 13:56 Sodium 139 mmol/L (135-145) 09/23/21 04:58 Potassium 3.7 mmol/L (3.5-5.0) 09/23/21 04:58 Chloride 108 mmol/L (101-111) 09/23/21 04:58 Carbon Dioxide 23 mmol/L (21-32) 09/23/21 04:58 Anion Gap 8.0 (6-13) 09/23/21 04:58 BUN 18 mg/dL (6-20) 09/23/21 04:58 Creatinine 1.5 mg/dL (0.6-1.2) H 09/23/21 04:58 Estimated GFR (MDRD) 46 (>89) L 09/23/21 04:58 Glucose 151 mg/dL (70-100) H 09/23/21 04:58 Calcium 8.4 mg/dL (8.5-10.3) L 09/23/21 04:58 Iron 20 ug/dL (45-182) L 09/23/21 04:58 TIBC 370 ug/dL (250-450) 09/23/21 04:58 % Saturation 5 % (20-50) L 09/23/21 04:58 Transferrin 264 mg/dL (180-329) 09/23/21 04:58 Ferritin 15.2 ng/mL (23.9-336.2) L 09/23/21 04:58 Total Bilirubin 0.3 mg/dL (0.2-1.0) 09/22/21 13:56 AST 28 IU/L (10-42) 09/22/21 13:56 ALT 29 IU/L (10-60) 09/22/21 13:56 Alkaline Phosphatase 72 IU/L (42-121) 09/22/21 13:56 Lactate Dehydrogenase 129 IU/L (91-225) 09/23/21 04:58 Troponin I High Sens 393.2 ng/L (2.3-19.7) H* 09/23/21 10:56 Total Protein 6.8 g/dL (6.7-8.2) 09/22/21 13:56 Albumin 3.0 g/dL (3.2-5.5) L 09/22/21 13:56 Globulin 3.8 g/dL (2.1-4.2) 09/22/21 13:56 Albumin/Globulin Ratio 0.8 (1.0-2.2) L 09/22/21 13:56 Vitamin B12 437 pg/mL (180-914) 09/23/21 04:58 Urine Color RED/BLOODY 09/22/21 13:18 Urine Clarity BLOODY (CLEAR) 09/22/21 13:18 Urine pH 6.5 PH (5.0-7.5) 09/22/21 13:18 Ur Specific [place] 1.020 (1.002-1.030) 09/22/21 13:18 Urine Protein >=300 mg/dL (NEGATIVE) H 09/22/21 13:18 Urine Glucose (UA) NEGATIVE mg/dL (NEGATIVE) 09/22/21 13:18 Urine Ketones NEGATIVE mg/dL (NEGATIVE) 09/22/21 13:18 Urine Occult Blood LARGE (NEGATIVE) H 09/22/21 13:18 Urine Nitrite NEGATIVE (NEGATIVE) 09/22/21 13:18 Urine Bilirubin NEGATIVE (NEGATIVE) 09/22/21 13:18 Urine Urobilinogen 0.2 (NORMAL) E.U./dL (NORMAL) 09/22/21 13:18 Ur Leukocyte Esterase SMALL (NEGATIVE) H 09/22/21 13:18 Urine RBC TNTC /HPF (0-5) H 09/22/21 13:18 Urine WBC 0-3 /HPF (0-3) 09/22/21 13:18 Ur Squamous Epith Cells NONE SEEN (<= Few) 09/22/21 13:18 Urine Bacteria None Seen /HPF (None Seen) 09/22/21 13:18 Ur Microscopic Review INDICATED 09/22/21 13:18 Urine Culture Comments INDICATED 09/22/21 13:18 Nasal Adenovirus (PCR) NOT DETECTED 09/22/21 14:52 Nasal B. parapertussis DNA (PCR) NOT DETECTED 09/22/21 14:52 Nasal Coronavir 229E PCR NOT DETECTED 09/22/21 14:52 Nasal Coronavir HKU1 PCR NOT DETECTED 09/22/21 14:52 Nasal Coronavir NL63 PCR NOT DETECTED 09/22/21 14:52 Nasal Coronavir OC43 PCR NOT DETECTED 09/22/21 14:52 Nasal Enterovir/Rhinovir PCR NOT DETECTED 09/22/21 14:52 Nasal Influenza B PCR NOT DETECTED 09/22/21 14:52 Nasal Influenza A PCR NOT DETECTED 09/22/21 14:52 Nasal Parainfluen 1 PCR NOT DETECTED 09/22/21 14:52 Nasal Parainfluen 2 PCR NOT DETECTED 09/22/21 14:52 Nasal Parainfluen 3 PCR NOT DETECTED 09/22/21 14:52 Nasal Parainfluen 4 PCR NOT DETECTED 09/22/21 14:52 Nasal RSV (PCR) NOT DETECTED 09/22/21 14:52 Nasal B.pertussis DNA PCR NOT DETECTED 09/22/21 14:52 Nasal C.pneumoniae (PCR) NOT DETECTED 09/22/21 14:52 [place] Human Metapneumo PCR NOT DETECTED 09/22/21 14:52 Nasal M.pneumoniae (PCR) NOT DETECTED 09/22/21 14:52 Nasal SARS-CoV-2 (PCR) NOT DETECTED 09/22/21 14:52 Blood Type A POSITIVE 09/22/21 15:00 Blood Type Recheck A POSITIVE 09/22/21 13:56 Antibody Screen NEGATIVE 09/22/21 15:00 Crossmatch IS Only See Detail 09/22/21 15:00 ABX Reporting Has patient been on IV antibiotics over the past 48 hours?: Yes
[2021-09-23] MEDS: FERROUS GLUCONATE 324 MG TABLET PO SCH (14:20)
--- NOTE | 2021-09-23 14:29 | PROVIDER PROGRESS NOTE ---
Subjective - Prog Note Date Prog Note Date: 09/23/21 - Subjective Pt reports feeling: Improved Subjective: pt feel happy at [facility], he is clearly state "I am hoping to stay at his hospital, not others." ER tried to call and [place], There was not bed available for pt to be transferred. Also I discussed with pt about his elevated troponin and possible blood thinner usage to treat his possible IA. pt clearly state, beside his home Aspirin, he did NOT want any other blood thinner, because he believe his blood thinners caused his hematuria " I from urine bleeding anyway than anything either if I take other blood thinners." At the time, nurse Charlette is at the bedside. Pt apologized about his tone for his no blood thinner. Current Medications - Current Medications Current Medications: Active Medications Acetaminophen (Acetaminophen 325 Mg Tablet) 650 mg PO Q4HR PRN PRN Reason: Pain 1 to 4 Last Admin: 09/23/21 09:04 Dose: 650 mg Amiodarone HCl (Amiodarone 200 Mg Tablet) 100 mg PO DAILY [facility] Last Admin: 09/23/21 13:15 Dose: Not Given Aspirin (Aspirin Chew 81 Mg Tablet) 81 mg PO DAILY [facility] Last Admin: 09/23/21 13:14 Dose: 81 mg Atorvastatin Calcium (Atorvastatin 40 Mg Tablet) 40 mg PO QPM [facility] Baclofen (Baclofen 10 Mg Tablet) 10 mg PO TID PRN PRN Reason: Bladder Spasms Last Admin: 09/23/21 03:24 Dose: 10 mg Carvedilol (Carvedilol 12.5 Mg Tablet) 12.5 mg PO BID [facility] Ferrous Gluconate (Ferrous Gluconate 324 Mg Tablet) 324 mg PO DAILYWM [facility] Last Admin: 09/23/21 14:20 Dose: 324 mg Ceftriaxone Sodium 1 gm/ (Sodium Chloride) 100 mls @ 200 mls/hr IV DAILY [facility] Last Infusion: 09/23/21 10:25 Dose: Infused Lisinopril (Lisinopril 5 Mg Tablet) 10 mg PO DAILY [facility] Last Admin: 09/23/21 09:05 Dose: 10 mg Morphine Sulfate (Morphine 2 Mg/Ml Carpuject) 2 mg IVP Q2HR PRN PRN Reason: PAIN Last Admin: 09/23/21 08:34 Dose: 2 mg Ondansetron HCl (Ondansetron Odt 4 Mg Tablet) 4 mg TL Q6HR PRN PRN Reason: Nausea / Vomiting Ondansetron HCl (Ondansetron 4 Mg/2 Ml Vial) 4 mg IVP Q6HR PRN PRN Reason: Nausea / Vomiting Oxybutynin Chloride (Oxybutynin 5mg Tablet) 5 mg PO BID [facility] Last Admin: 09/23/21 09:05 Dose: 5 mg Oxycodone HCl (Oxycodone 5 Mg Tablet) 5 mg PO Q4HR PRN PRN Reason: Pain 5 to 7 Last Admin: 09/23/21 09:04 Dose: 5 mg Sodium Chloride (Sodium Chloride Flush 0.9% 10 Ml Syringe) 10 ml IVP PRN PRN PRN Reason: NEEDED PER PROVIDER ORDERS Sodium Chloride (Sodium Chloride Flush 0.9% 10 Ml Syringe) 10 ml IVP 0100,0900,1700 [facility] Last Admin: 09/23/21 09:05 Dose: 10 ml Tamsulosin HCl (Tamsulosin 0.4 Mg Capsule) 0.4 mg PO DAILY [facility] Last Admin: 09/23/21 09:14 Dose: 0.4 mg Aspirin Chewable [[facility] Rodolfo Aspirin] 81 mg PO DAILY 04/24/19 lisinopriL [Prinivil] 10 mg PO DAILY 04/24/19 Acetaminophen 500 mg PO DAILY PRN 05/07/19 Amiodarone [Pacerone] 100 mg PO DAILY 05/07/19 Carvedilol [Coreg] 12.5 mg PO BID 05/07/19 Rosuvastatin Calcium [Crestor] 40 mg PO DAILY 05/07/19 Objective - Vital Signs/Intake & Output Vital Signs: Vital Signs x48h Temp Pulse Resp BP Pulse Ox 09/23/21 13:00 36.3 C L 66 17 121/47 L 92 09/23/21 08:38 36.1 C L 09/23/21 08:22 17 138/58 H 95 Intake & Output: Intake & Output 09/20/21 09/21/21 09/22/21 09/23/21 23:59 23:59 23:59 23:59 Intake Total 2650 5200 Output Total 3000 5750 Balance -350 -550 - Objective General Appearance: positive: No acute distress, Alert. negative: Lethargic Eyes Bilateral: positive: Normal inspection, No lid inflammation ENT: positive: ENT inspection nml, No signs of dehydration. negative: Purulent nasal drainage Neck: positive: Nml inspection, Trachea midline. negative: Tracheal deviation Respiratory: positive: Chest non-tender, No respiratory distress. negative: Wheezes Cardiovascular: positive: Regular rate & rhythm. negative: Tachycardia, Bradycardia, Systolic murmur Peripheral Pulses: 2+ Radial (R), 2+ Radial (L) Abdomen: positive: Non-tender, Nml bowel sounds, No distention. negative: Tenderness Back: positive: Nml inspection Skin: positive: Color nml, Warm, Dry. negative: Cyanosis Extremities: positive: Non-tender, Full ROM, Nml appearance Neurologic/Psychiatric: positive: Oriented x3, Motor nml, Sensation nml. negative: Weakness, Sensory loss, Facial droop, Slurred/abnml speech, Depressed mood/affect - Lab Results Fish Bones: 09/23/21 11:16 09/23/21 04:58 Other Labs: Lab Results x24hrs 09/23/21 09/23/21 09/23/21 Range/Units 11:16 10:56 04:58 WBC (4.8-10.8) x10^3/uL RBC (4.70-6.10) 10^6/uL Hgb 8.2 L (14.0-18.0) g/dL Hct 28.3 L (42.0-52.0) % MCV (80.0-94.0) fL MCH (27.0-31.0) pg MCHC (32.0-36.0) g/dL RDW (12.0-15.0) % Plt Count (130-450) 10^3/uL MPV (7.4-11.4) fL Reticulocyte % (Auto) (0.5-2.3) % Absolute Retic (0.020-0.110) 10^6/uL PT (9.9-12.6) secs INR (0.8-1.2) APTT (24.9-33.3) secs Sodium (135-145) mmol/L Potassium (3.5-5.0) mmol/L Chloride (101-111) mmol/L Carbon Dioxide (21-32) mmol/L Anion Gap (6-13) BUN (6-20) mg/dL Creatinine (0.6-1.2) mg/dL Estimated GFR (MDRD) (>89) Glucose (70-100) mg/dL Calcium (8.5-10.3) mg/dL Iron (45-182) ug/dL TIBC (250-450) ug/dL % Saturation (20-50) % Transferrin (180-329) mg/dL Ferritin (23.9-336.2) ng/mL Lactate Dehydrogenase (91-225) IU/L Troponin I High Sens 393.2 H* 310.4 H* (2.3-19.7) ng/L Vitamin B12 (180-914) pg/mL Nasal Adenovirus (PCR) Nasal B. parapertussis DNA (PCR) Nasal Coronavir 229E PCR Nasal Coronavir HKU1 PCR Nasal Coronavir NL63 PCR Nasal Coronavir OC43 PCR Nasal Enterovir/Rhinovir PCR Nasal Influenza B PCR Nasal Influenza A PCR Nasal Parainfluen 1 PCR Nasal Parainfluen 2 PCR Nasal Parainfluen 3 PCR Nasal Parainfluen 4 PCR Nasal RSV (PCR) Nasal B.pertussis DNA PCR Nasal C.pneumoniae (PCR) G[place]aro Human Metapneumo PCR Nasal M.pneumoniae (PCR) Nasal SARS-CoV-2 (PCR) Blood Type Blood Type Recheck Antibody Screen Crossmatch IS Only 09/23/21 09/23/21 09/23/21 Range/Units 04:58 04:58 04:58 WBC (4.8-10.8) x10^3/uL RBC (4.70-6.10) 10^6/uL Hgb (14.0-18.0) g/dL Hct (42.0-52.0) % MCV (80.0-94.0) fL MCH (27.0-31.0) pg MCHC (32.0-36.0) g/dL RDW (12.0-15.0) % Plt Count (130-450) 10^3/uL MPV (7.4-11.4) fL Reticulocyte % (Auto) (0.5-2.3) % Absolute Retic (0.020-0.110) 10^6/uL PT (9.9-12.6) secs INR (0.8-1.2) APTT (24.9-33.3) secs Sodium (135-145) mmol/L Potassium (3.5-5.0) mmol/L Chloride (101-111) mmol/L Carbon Dioxide (21-32) mmol/L Anion Gap (6-13) BUN (6-20) mg/dL Creatinine (0.6-1.2) mg/dL Estimated GFR (MDRD) (>89) Glucose (70-100) mg/dL Calcium (8.5-10.3) mg/dL Iron 20 L (45-182) ug/dL TIBC 370 (250-450) ug/dL % Saturation 5 L (20-50) % Transferrin 264 (180-329) mg/dL Ferritin 15.2 L (23.9-336.2) ng/mL Lactate Dehydrogenase 129 (91-225) IU/L Troponin I High Sens (2.3-19.7) ng/L Vitamin B12 437 (180-914) pg/mL Nasal Adenovirus (PCR) Nasal B. parapertussis DNA (PCR) Nasal Coronavir 229E PCR Nasal Coronavir HKU1 PCR Nasal Coronavir NL63 PCR Nasal Coronavir OC43 PCR Nasal Enterovir/Rhinovir PCR Nasal Influenza B PCR Nasal Influenza A PCR Nasal Parainfluen 1 PCR Nasal Parainfluen 2 PCR Nasal Parainfluen 3 PCR Nasal Parainfluen 4 PCR Nasal RSV (PCR) Nasal B.pertussis DNA PCR Nasal C.pneumoniae (PCR) G[place]aro Human Metapneumo PCR Nasal M.pneumoniae (PCR) Nasal SARS-CoV-2 (PCR) Blood Type Blood Type Recheck Antibody Screen Crossmatch IS Only 09/23/21 09/23/21 09/23/21 Range/Units 04:58 04:58 04:58 WBC 5.0 (4.8-10.8) x10^3/uL RBC 4.00 L 4.05 L (4.70-6.10) 10^6/uL Hgb 8.3 L (14.0-18.0) g/dL Hct 28.9 L (42.0-52.0) % MCV 71.4 L (80.0-94.0) fL MCH 20.5 L (27.0-31.0) pg MCHC 28.7 L (32.0-36.0) g/dL RDW 19.4 H (12.0-15.0) % Plt Count 177 (130-450) 10^3/uL MPV 10.3 (7.4-11.4) fL Reticulocyte % (Auto) 1.16 (0.5-2.3) % Absolute Retic 0.046 (0.020-0.110) 10^6/uL PT (9.9-12.6) secs INR (0.8-1.2) APTT (24.9-33.3) secs Sodium 139 (135-145) mmol/L Potassium 3.7 (3.5-5.0) mmol/L Chloride 108 (101-111) mmol/L Carbon Dioxide 23 (21-32) mmol/L Anion Gap 8.0 (6-13) BUN 18 (6-20) mg/dL Creatinine 1.5 H (0.6-1.2) mg/dL Estimated GFR (MDRD) 46 L (>89) Glucose 151 H (70-100) mg/dL Calcium 8.4 L (8.5-10.3) mg/dL Iron (45-182) ug/dL TIBC (250-450) ug/dL % Saturation (20-50) % Transferrin (180-329) mg/dL Ferritin (23.9-336.2) ng/mL Lactate Dehydrogenase (91-225) IU/L Troponin I High Sens (2.3-19.7) ng/L Vitamin B12 (180-914) pg/mL Nasal Adenovirus (PCR) Nasal B. parapertussis DNA (PCR) Nasal Coronavir 229E PCR Nasal Coronavir HKU1 PCR Nasal Coronavir NL63 PCR Nasal Coronavir OC43 PCR Nasal Enterovir/Rhinovir PCR Nasal Influenza B PCR Nasal Influenza A PCR Nasal Parainfluen 1 PCR Nasal Parainfluen 2 PCR Nasal Parainfluen 3 PCR Nasal Parainfluen 4 PCR Nasal RSV (PCR) Nasal B.pertussis DNA PCR Nasal C.pneumoniae (PCR) G[place]aro Human Metapneumo PCR Nasal M.pneumoniae (PCR) Nasal SARS-CoV-2 (PCR) Blood Type Blood Type Recheck Antibody Screen Crossmatch IS Only 09/22/21 09/22/21 09/22/21 Range/Units 22:53 22:53 15:00 WBC 6.4 (4.8-10.8) x10^3/uL RBC 4.42 L (4.70-6.10) 10^6/uL Hgb 9.0 L (14.0-18.0) g/dL Hct 31.6 L (42.0-52.0) % MCV 71.5 L (80.0-94.0) fL MCH 20.4 L (27.0-31.0) pg MCHC 28.5 L (32.0-36.0) g/dL RDW 19.6 H (12.0-15.0) % Plt Count 178 (130-450) 10^3/uL MPV 9.5 (7.4-11.4) fL Reticulocyte % (Auto) (0.5-2.3) % Absolute Retic (0.020-0.110) 10^6/uL PT (9.9-12.6) secs INR (0.8-1.2) APTT (24.9-33.3) secs Sodium (135-145) mmol/L Potassium (3.5-5.0) mmol/L Chloride (101-111) mmol/L Carbon Dioxide (21-32) mmol/L Anion Gap (6-13) BUN (6-20) mg/dL Creatinine (0.6-1.2) mg/dL Estimated GFR (MDRD) (>89) Glucose (70-100) mg/dL Calcium (8.5-10.3) mg/dL Iron (45-182) ug/dL TIBC (250-450) ug/dL % Saturation (20-50) % Transferrin (180-329) mg/dL Ferritin (23.9-336.2) ng/mL Lactate Dehydrogenase (91-225) IU/L Troponin I High Sens 31.1 H* (2.3-19.7) ng/L Vitamin B12 (180-914) pg/mL Nasal Adenovirus (PCR) Nasal B. parapertussis DNA (PCR) Nasal Coronavir 229E PCR Nasal Coronavir HKU1 PCR Nasal Coronavir NL63 PCR Nasal Coronavir OC43 PCR Nasal Enterovir/Rhinovir PCR Nasal Influenza B PCR Nasal Influenza A PCR Nasal Parainfluen 1 PCR Nasal Parainfluen 2 PCR Nasal Parainfluen 3 PCR Nasal Parainfluen 4 PCR Nasal RSV (PCR) Nasal B.pertussis DNA PCR Nasal C.pneumoniae (PCR) G[place]aro Human Metapneumo PCR Nasal M.pneumoniae (PCR) Nasal SARS-CoV-2 (PCR) Blood Type A POSITIVE Blood Type Recheck Antibody Screen NEGATIVE Crossmatch IS Only See Detail 09/22/21 09/22/21 09/22/21 Range/Units 14:52 13:56 13:56 WBC (4.8-10.8) x10^3/uL RBC (4.70-6.10) 10^6/uL Hgb (14.0-18.0) g/dL Hct (42.0-52.0) % MCV (80.0-94.0) fL MCH (27.0-31.0) pg MCHC (32.0-36.0) g/dL RDW (12.0-15.0) % Plt Count (130-450) 10^3/uL MPV (7.4-11.4) fL Reticulocyte % (Auto) (0.5-2.3) % Absolute Retic (0.020-0.110) 10^6/uL PT 14.3 H (9.9-12.6) secs INR 1.3 H (0.8-1.2) APTT 28.7 (24.9-33.3) secs Sodium (135-145) mmol/L Potassium (3.5-5.0) mmol/L Chloride (101-111) mmol/L Carbon Dioxide (21-32) mmol/L Anion Gap (6-13) BUN (6-20) mg/dL Creatinine (0.6-1.2) mg/dL Estimated GFR (MDRD) (>89) Glucose (70-100) mg/dL Calcium (8.5-10.3) mg/dL Iron (45-182) ug/dL TIBC (250-450) ug/dL % Saturation (20-50) % Transferrin (180-329) mg/dL Ferritin (23.9-336.2) ng/mL Lactate Dehydrogenase (91-225) IU/L Troponin I High Sens (2.3-19.7) ng/L Vitamin B12 (180-914) pg/mL Nasal Adenovirus (PCR) NOT DETECTED Nasal B. parapertussis DNA (PCR) NOT DETECTED Nasal Coronavir 229E PCR NOT DETECTED Nasal Coronavir HKU1 PCR NOT DETECTED Nasal Coronavir NL63 PCR NOT DETECTED Nasal Coronavir OC43 PCR NOT DETECTED Nasal Enterovir/Rhinovir PCR NOT DETECTED Nasal Influenza B PCR NOT DETECTED Nasal Influenza A PCR NOT DETECTED Nasal Parainfluen 1 PCR NOT DETECTED Nasal Parainfluen 2 PCR NOT DETECTED Nasal Parainfluen 3 PCR NOT DETECTED Nasal Parainfluen 4 PCR NOT DETECTED Nasal RSV (PCR) NOT DETECTED Nasal B.pertussis DNA PCR NOT DETECTED Nasal C.pneumoniae (PCR) NOT DETECTED G[place]aro Human Metapneumo PCR NOT DETECTED Nasal M.pneumoniae (PCR) NOT DETECTED Nasal SARS-CoV-2 (PCR) NOT DETECTED Blood Type Blood Type Recheck A POSITIVE Antibody Screen Crossmatch IS Only ABX Reporting Has patient been on IV antibiotics over the past 48 hours?: Yes Sepsis Event Note (H) - Evaluation Current Stage of Sepsis: Ruled out Assessment/Plan - Problem List (1) Hemorrhagic cystitis Impression: 09/23 After I with nurse Charlette resolved the blood clot blockage in the head of Rivera, then it appear resolved. the fluid from irrigation show normal color now, HGB is stable. continue NS irrigation on today, continue H&H monitor. (2)elevated troponin pt had elevated troponin to 310, repeat troponin still show at 390. EKG did not reveal acute Ischemic change, patient denies chest pain. Patient is hemodynamically stable now. Patient's echo done on today show 45-50Percent, with regional wall motion abnormality. But pt was recently disgnosis with NSTEMI at , we will ask for medical record from . Patient likely has demand ischemia from hematuria and anemia. pt only take his home blood thinner Aspirin now, resume home aspirin, coreg, statin, Lisinopril. pt refused to take his home Am iodarone, continue troponin check, continue tele monitor pt, continue lab and vital monitor. (3) Acute blood loss anemia Conclusion/Plan: Patient had 1 unit blood transfusion. now hemoglobin is 8.2 and stable. Anemia study show patient also had iron deficiency. start on iron pill. Continue H&H monitor for patient. (4) Urinary retention Conclusion/Plan: we will continue irrigation on today, If continue to improve, fluids did not show blood, hemoglobin is stable, then tomorrow we might try to remove Rivera catheter (5) History of non-ST elevation myocardial infarction (NSTEMI) Conclusion/Plan: as mentioned above. resume home aspirin, coreg, statin, Lisinopril. pt refused t o take his home Amiodarone (6) Chronic kidney disease (CKD), stage III (moderate) Conclusion/Plan: stable, continue lab monitor
[2021-09-23 16:47] LABS: HCT - HEMATOCRIT 28.3 % (42.0-52.0)
[2021-09-23] MEDS: ATORVASTATIN 40 MG TABLET PO SCH (20:40)
[2021-09-23] MEDS: carvediloL 12.5 MG TABLET PO SCH (20:40)
[2021-09-23] MEDS ORDERED: ATORVASTATIN 10 MG TABLET PO SCH (21:00)
[2021-09-23 23:17] LABS: HCT - HEMATOCRIT 27.3 % (42.0-52.0)
[2021-09-24] MEDS: BACLOFEN 10 MG TABLET PO PRN ×3 (00:05→22:18)
[2021-09-24] MEDS: oxyCODONE 5 MG TABLET PO PRN (00:19)
[2021-09-24] MEDS: ACETAMINOPHEN 325 MG TABLET PO PRN (00:19)
[2021-09-24] MEDS: MORPHINE 2 MG/ML CARPUJECT IVP PRN ×2 (00:20→02:44)
[2021-09-24] MEDS: SODIUM CHLORIDE FLUSH 0.9% 10 ML SYRINGE IVP SCH ×3 (02:00→17:04)
[2021-09-24 05:14] LABS: BASOPHILS % (AUTO) 0.5 %; EOSINOPHILS # (AUTO) 0.3 10^3/uL (0.0-0.7); EOSINOPHILS % (AUTO) 4.6 %; HCT - HEMATOCRIT 26.6 % (42.0-52.0); HGB - HEMOGLOBIN 7.6 g/dL (14.0-18.0); LYMPHOCYTES # (AUTO) 0.7 10^3/uL (1.5-3.5); LYMPHOCYTES % (AUTO) 11.3 %; MEAN CORPUSCULAR HEMOGLOBIN 20.5 pg (27.0-31.0); MEAN CORPUSCULAR HGB CONC 28.6 g/dL (32.0-36.0); MEAN CORPUSCULAR VOLUME 71.7 fL (80.0-94.0); MONOCYTES # (AUTO) 0.8 10^3/uL (0.0-1.0); MONOCYTES % (AUTO) 12.4 %; NEUTROPHILS # (AUTO) 4.4 10^3/uL (1.5-6.6); NEUTROPHILS % (AUTO) 70.9 %; PLT - PLATELET COUNT 157 10^3/uL (130-450); RED BLOOD COUNT 3.71 10^6/uL (4.70-6.10); RED CELL DISTRIBUTION WIDTH 19.6 % (12.0-15.0); WHITE BLOOD COUNT 6.1 x10^3/uL (4.8-10.8)
[2021-09-24 05:32] LABS: CALCIUM 8.2 mg/dL (8.5-10.3); CREATININE 1.4 mg/dL (0.6-1.2); POTASSIUM 3.6 mmol/L (3.5-5.0)
[2021-09-24] MEDS: lisinopriL 5 MG TABLET PO SCH (09:04)
[2021-09-24] MEDS: cefTRIAXone 1 GM in SODIUM CHLORIDE 0.9% MINIBAG 100 ML IV SCH (09:04)
[2021-09-24] MEDS: OXYBUTYNIN 5MG TABLET PO SCH ×2 (09:04→20:32)
[2021-09-24] MEDS: FERROUS GLUCONATE 324 MG TABLET PO SCH (09:05)
[2021-09-24] MEDS: SACCHAROMYCES BOULARDII 250 MG CAPSULE PO SCH ×2 (09:05→17:04)
[2021-09-24] MEDS: TAMSULOSIN 0.4 MG CAPSULE PO SCH (09:05)
[2021-09-24] MEDS: carvediloL 12.5 MG TABLET PO SCH (09:05)
[2021-09-24 11:09] LABS: HCT - HEMATOCRIT 26.1 % (42.0-52.0); HGB - HEMOGLOBIN 7.4 g/dL (14.0-18.0)
[2021-09-24] MEDS: polyethylene glycoL 3350 17 GM PACKET PO SCH (11:23)
--- NOTE | 2021-09-24 15:45 | PROVIDER PROGRESS NOTE ---
Assessment/Plan - Problem List (1) Hemorrhagic cystitis Assessment/Plan: 09/24 pt still has hematuria, and HGB drop to 7.4. nurse report he had low side BP as well. SBP was 90 per nurse report. order one blood transfusion, continue irrigation bladder, continue H&H monitor, per recommendation. continue antibiotics to treat UTI 09/23 After I with nurse Charlette resolved the blood clot blockage in the head of Rivera, then it appear resolved. the fluid from irrigation show normal color now, HGB is stable. continue NS irrigation on today, continue H&H monitor. (2)bradycardia with sinus pause pt's tele reveal HR 37 in the morning with 3.23 seconds sinus pause. we will hold pt's home meds Coreg now. continue tele monitor (3)elevated troponin 09/24 troponin is down to 165. pt denies chest pain, pt report he walk to bathroom and he is asymptomatic, he has no distress. pt's home Aspirin is hold because he continue hematuria and he need blood transfusion again. pt had elevated troponin to 310, repeat troponin still show at 390. EKG did not reveal acute Ischemic change, patient denies chest pain. Patient is hemodynamically stable now. Patient's echo done on today show 45-50Percent, with regional wall motion abnormality. But pt was recently disgnosis with NSTEMI at , we will ask for medical record from . Patient likely has demand ischemia f rom hematuria and anemia. pt only take his home blood thinner Aspirin now, resume home aspirin, coreg, statin, Lisinopril. pt refused to take his home Amiodarone, continue troponin check, continue tele monitor pt, continue lab and vital monitor. (4) Acute blood loss anemia Conclusion/Plan: 09/24 HGB is drop to 7.4, order 1 units of blood transfusion, continue H&H monitor Patient had 1 unit blood transfusion. now hemoglobin is 8.2 and stable. Anemia study show patient also had iron deficiency. start on iron pill. Continue H&H monitor for patient. (5) Urinary retention Conclusion/Plan: we will continue irrigation on today, If continue to improve, fluids did not show blood, hemoglobin is stable, then tomorrow we might try to remove Rivera catheter (6) History of non-ST elevation myocardial infarction (NSTEMI) Conclusion/Plan: as mentioned above. resume home aspirin, coreg, statin, Lisinopril. pt refused to take his home Amiodarone (7) Chronic kidney disease (CKD), stage III (moderate) Conclusion/Plan: stable, continue lab monitor (8)hypotension nurse report pt has low BP, SBP 90. assessed pt, pt is asymptomatic, pt denies any symptoms, he walked to bathroom without distress. reported Dr. Grisel Bradley, our MD and waste specialist, she went to assess pt. now we order blood transfusion, order all pt's home BP meds. because pt had 45-50% EF in ECHO, pt is asymptomatic, we hold bolus of IVF now, closely vital and tele monitor pt now. If clinic needed, we will transfer pt to ICU status for care. (9)UTI UA culture reveal positive for Staph aureas but MSSA, sensitive to all antib iotics we test for. Per [facility], believe because UTI infection to cause pt's hematuria. continue Rocephin, add probiotics. - Current Meds Current Meds: Current Medications Generic Name Dose Route Start Last Admin Trade Name Freq PRN Reason Stop Dose Admin Acetaminophen 650 mg 09/22/21 21:40 09/24/21 00:19 Acetaminophen 325 Mg Tablet PO 650 mg Q4HR PRN Administration Pain 1 to 4 Atorvastatin Calcium 40 mg 09/23/21 21:00 09/23/21 20:40 Atorvastatin 40 Mg Tablet PO 40 mg QPM SONAM Administration Baclofen 10 mg 09/23/21 00:21 09/24/21 09:05 Baclofen 10 Mg Tablet PO 10 mg TID PRN Administration Bladder Spasms Ferrous Gluconate 324 mg 09/23/21 15:00 09/24/21 09:05 Ferrous Gluconate 324 Mg Tablet PO 324 mg DAILYWM SONAM Administration Ceftriaxone Sodium 1 gm/ 100 mls @ 200 mls/hr 09/23/21 09:30 09/24/21 09:35 Sodium Chloride IV Infused DAILY SONAM Infusion Morphine Sulfate 2 mg 09/23/21 06:52 09/24/21 02:44 Morphine 2 Mg/Ml Carpuject IVP 2 mg Q2HR PRN Administration PAIN Oxybutynin Chloride 5 mg 09/23/21 09:00 09/24/21 09:04 Oxybutynin 5mg Tablet PO 5 mg BID SONAM Administration Oxycodone HCl 5 mg 09/22/21 21:40 09/24/21 00:19 Oxycodone 5 Mg Tablet PO 5 mg Q4HR PRN Administration Pain 5 to 7 Polyethylene Glycol 17 gm 09/24/21 09:00 09/24/21 11:23 Polyethylene Glycol 3350 17 Gm Packet PO Not Given DAILY SONAM Saccharomyces Boulardii 250 mg 09/24/21 08:00 09/24/21 09:05 Saccharomyces Boulardii 250 Mg Capsule PO 250 mg BIDWM SONAM Administration Sodium Chloride 10 ml 09/23/21 01:00 09/24/21 09:06 Sodium Chloride Flush 0.9% 10 Ml Syringe IVP 10 ml 0100,0900,1700 SONAM Administration Tamsulosin HCl 0.4 mg 09/23/21 09:00 09/24/21 09:05 Tamsulosin 0.4 Mg Capsule PO 0.4 mg DAILY SONAM Administration - Lab Result Fish Bone Diagrams: 09/24/21 11:04 09/24/21 04:56 - Additional Planning My Orders: My Active Orders 09/23/21 15:00 Ferrous Gluconate [Fergon] 324 mg PO DAILYWM 09/23/21 21:00 Atorvastatin [Lipitor] 40 mg PO QPM 09/24/21 08:00 Saccharomyces Boulardii [Florastor] 250 mg PO BIDWM 09/24/21 14:38 Transfuse RBCs Leukoreduced [RC] .ONCE 09/24/21 15:22 TROPONIN I HIGH SENSITIVITY [IAI] Stat 09/24/21 17:00 H&H [HEMOGLOBIN AND HEMATOCRIT] [HEME] Q6H 09/24/21 19:00 TROPONIN I HIGH SENSITIVITY [IAI] Timed 09/24/21 23:00 H&H [HEMOGLOBIN AND HEMATOCRIT] [HEME] Q6H 09/25/21 05:00 BMP - BASIC METABOLIC PANEL [CHEM] DAILYLAB CBC - COMP BLD CT W/AUTO DIFF [HEME] DAILYLAB 09/26/21 05:00 BMP - BASIC METABOLIC PANEL [CHEM] DAILYLAB CBC - COMP BLD CT W/AUTO DIFF [HEME] DAILYLAB 09/27/21 05:00 BMP - BASIC METABOLIC PANEL [CHEM] DAILYLAB CBC - COMP BLD CT W/AUTO DIFF [HEME] DAILYLAB 09/28/21 05:00 BMP - BASIC METABOLIC PANEL [CHEM] DAILYLAB CBC - COMP BLD CT W/AUTO DIFF [HEME] DAILYLAB Subjective - Subjective Patient Reports: Resting Comfortably Objective Vital Signs: Vital Signs - 24 hr 09/23/21 09/23/21 09/24/21 17:00 20:41 00:01 Temperature 36.9 C 37.7 C 37.8 C Heart Rate [ 61 66 67 Radial] Respiratory 20 12 14 Rate Blood Pressure 120/51 L 113/51 L 127/62 [Right Brachial artery] O2 Saturation 96 96 94 09/24/21 09/24/21 05:09 09:12 Temperature 37.7 C 36.6 C Heart Rate [ 54 L 59 L Radial] Respiratory 18 20 Rate Blood Pressure 109/41 L 117/56 L [Right Brachial artery] O2 Saturation 95 97 Oxygen O2 Source Room air I&O (Last 24 Hrs): Intake and Output Totals x24h 09/22/21 09/23/21 09/24/21 23:59 23:59 23:59 Intake Total 2650 9865 7290 Output Total 3000 9225 8600 Balance -350 640 -1310 General: Alert, Oriented x3, No acute distress HEENT: Atraumatic Neck: Supple Lymphatic: no adenopathy Neuro: Alert, Non Focal, Oriented Times 3 Cardiovascular: Regular rate, Normal S1, Normal S2 Respiratory: Chest non-tender, No respiratory distress Abdomen: Normal bowel sounds, Soft Extremities: Normal pulses - Results Results: Laboratory Results WBC 6.1 x10^3/uL (4.8-10.8) 09/24/21 04:56 RBC 3.71 10^6/uL (4.70-6.10) L 09/24/21 04:56 Hgb 7.4 g/dL (14.0-18.0) L 09/24/21 11:04 Hct 26.1 % (42.0-52.0) L 09/24/21 11:04 MCV 71.7 fL (80.0-94.0) L 09/24/21 04:56 MCH 20.5 pg (27.0-31.0) L 09/24/21 04:56 MCHC 28.6 g/dL (32.0-36.0) L 09/24/21 04:56 RDW 19.6 % (12.0-15.0) H 09/24/21 04:56 Plt Count 157 10^3/uL (130-450) 09/24/21 04:56 MPV 10.0 fL (7.4-11.4) 09/24/21 04:56 Reticulocyte % (Auto) 1.16 % (0.5-2.3) 09/23/21 04:58 Neut # (Auto) 4.4 10^3/uL (1.5-6.6) 09/24/21 04:56 Lymph # (Auto) 0.7 10^3/uL (1.5-3.5) L 09/24/21 04:56 [place] # (Auto) 0.8 10^3/uL (0.0-1.0) 09/24/21 04:56 Eos # (Auto) 0.3 10^3/uL (0.0-0.7) 09/24/21 04:56 Baso # (Auto) 0.0 10^3/uL (0.0-0.1) 09/24/21 04:56 Absolute Nucleated RBC 0.00 x10^3/uL 09/24/21 04:56 Nucleated RBC % 0.0 /100WBC 09/24/21 04:56 Absolute Retic 0.046 10^6/uL (0.020-0.110) 09/23/21 04:58 PT 14.3 secs (9.9-12.6) H 09/22/21 13:56 INR 1.3 (0.8-1.2) H 09/22/21 13:56 APTT 28.7 secs (24.9-33.3) 09/22/21 13:56 Sodium 140 mmol/L (135-145) 09/24/21 04:56 Potassium 3.6 mmol/L (3.5-5.0) 09/24/21 04:56 Chloride 107 mmol/L (101-111) 09/24/21 04:56 Carbon Dioxide 25 mmol/L (21-32) 09/24/21 04:56 Anion Gap 8.0 (6-13) 09/24/21 04:56 BUN 19 mg/dL (6-20) 09/24/21 04:56 Creatinine 1.4 mg/dL (0.6-1.2) H 09/24/21 04:56 Estimated GFR (MDRD) 50 (>89) L 09/24/21 04:56 Glucose 118 mg/dL (70-100) H 09/24/21 04:56 Calcium 8.2 mg/dL (8.5-10.3) L 09/24/21 04:56 Iron 20 ug/dL (45-182) L 09/23/21 04:58 TIBC 370 ug/dL (250-450) 09/23/21 04:58 % Saturation 5 % (20-50) L 09/23/21 04:58 Transferrin 264 mg/dL (180-329) 09/23/21 04:58 Ferritin 15.2 ng/mL (23.9-336.2) L 09/23/21 04:58 Total Bilirubin 0.3 mg/dL (0.2-1.0) 09/22/21 13:56 AST 28 IU/L (10-42) 09/22/21 13:56 ALT 29 IU/L (10-60) 09/22/21 13:56 Alkaline Phosphatase 72 IU/L (42-121) 09/22/21 13:56 Lactate Dehydrogenase 129 IU/L (91-225) 09/23/21 04:58 Troponin I High Sens 352.2 ng/L (2.3-19.7) H* 09/23/21 16:35 Total Protein 6.8 g/dL (6.7-8.2) 09/22/21 13:56 Albumin 3.0 g/dL (3.2-5.5) L 09/22/21 13:56 Globulin 3.8 g/dL (2.1-4.2) 09/22/21 13:56 Albumin/Globulin Ratio 0.8 (1.0-2.2) L 09/22/21 13:56 Vitamin B12 437 pg/mL (180-914) 09/23/21 04:58 Urine Color RED/BLOODY 09/22/21 13:18 Urine Clarity BLOODY (CLEAR) 09/22/21 13:18 Urine pH 6.5 PH (5.0-7.5) 09/22/21 13:18 Ur Specific [place] 1.020 (1.002-1.030) 09/22/21 13:18 Urine Protein >=300 mg/dL (NEGATIVE) H 09/22/21 13:18 Urine Glucose (UA) NEGATIVE mg/dL (NEGATIVE) 09/22/21 13:18 Urine Ketones NEGATIVE mg/dL (NEGATIVE) 09/22/21 13:18 Urine Occult Blood LARGE (NEGATIVE) H 09/22/21 13:18 Urine Nitrite NEGATIVE (NEGATIVE) 09/22/21 13:18 Urine Bilirubin NEGATIVE (NEGATIVE) 09/22/21 13:18 Urine Urobilinogen 0.2 (NORMAL) E.U./dL (NORMAL) 09/22/21 13:18 Ur Leukocyte Esterase SMALL (NEGATIVE) H 09/22/21 13:18 Urine RBC TNTC /HPF (0-5) H 09/22/21 13:18 Urine WBC 0-3 /HPF (0-3) 09/22/21 13:18 Ur Squamous Epith Cells NONE SEEN (<= Few) 09/22/21 13:18 Urine Bacteria None Seen /HPF (None Seen) 09/22/21 13:18 Ur Microscopic Review INDICATED 09/22/21 13:18 Urine Culture Comments INDICATED 09/22/21 13:18 Nasal Adenovirus (PCR) NOT DETECTED 09/22/21 14:52 Nasal B. parapertussis DNA (PCR) NOT DETECTED 09/22/21 14:52 Nasal Coronavir 229E PCR NOT DETECTED 09/22/21 14:52 Nasal Coronavir HKU1 PCR NOT DETECTED 09/22/21 14:52 Nasal Coronavir NL63 PCR NOT DETECTED 09/22/21 14:52 Nasal Coronavir OC43 PCR NOT DETECTED 09/22/21 14:52 Nasal Enterovir/Rhinovir PCR NOT DETECTED 09/22/21 14:52 Nasal Influenza B PCR NOT DETECTED 09/22/21 14:52 Nasal Influenza A PCR NOT DETECTED 09/22/21 14:52 Nasal Parainfluen 1 PCR NOT DETECTED 09/22/21 14:52 Nasal Parainfluen 2 PCR NOT DETECTED 09/22/21 14:52 Nasal Parainfluen 3 PCR NOT DETECTED 09/22/21 14:52 Nasal Parainfluen 4 PCR NOT DETECTED 09/22/21 14:52 Nasal RSV (PCR) NOT DETECTED 09/22/21 14:52 Nasal B.pertussis DNA PCR NOT DETECTED 09/22/21 14:52 Nasal C.pneumoniae (PCR) NOT DETECTED 09/22/21 14:52 [place] Human Metapneumo PCR NOT DETECTED 09/22/21 14:52 Nasal M.pneumoniae (PCR) NOT DETECTED 09/22/21 14:52 Nasal SARS-CoV-2 (PCR) NOT DETECTED 09/22/21 14:52 Blood Type A POSITIVE 09/22/21 15:00 Blood Type Recheck A POSITIVE 09/22/21 13:56 Antibody Screen NEGATIVE 09/22/21 15:00 Crossmatch IS Only See Detail 09/22/21 15:00 Sepsis Event Note (H) - Evaluation Current Stage of Sepsis: Ruled out ABX Reporting Has patient been on IV antibiotics over the past 48 hours?: Yes Current Medications - Current Medications Current Medications: Active Medications Acetaminophen (Acetaminophen 325 Mg Tablet) 650 mg PO Q4HR PRN PRN Reason: Pain 1 to 4 Last Admin: 09/24/21 00:19 Dose: 650 mg Atorvastatin Calcium (Atorvastatin 40 Mg Tablet) 40 mg PO QPM [facility] Last Admin: 09/23/21 20:40 Dose: 40 mg Baclofen (Baclofen 10 Mg Tablet) 10 mg PO TID PRN PRN Reason: Bladder Spasms Last Admin: 09/24/21 09:05 Dose: 10 mg Ferrous Gluconate (Ferrous Gluconate 324 Mg Tablet) 324 mg PO DAILYWM [facility] Last Admin: 09/24/21 09:05 Dose: 324 mg Ceftriaxone Sodium 1 gm/ (Sodium Chloride) 100 mls @ 200 mls/hr IV DAILY [facility] Last Infusion: 09/24/21 09:35 Dose: Infused Morphine Sulfate (Morphine 2 Mg/Ml Carpuject) 2 mg IVP Q2HR PRN PRN Reason: PAIN Last Admin: 09/24/21 02:44 Dose: 2 mg Ondansetron HCl (Ondansetron Odt 4 Mg Tablet) 4 mg TL Q6HR PRN PRN Reason: Nausea / Vomiting Ondansetron HCl (Ondansetron 4 Mg/2 Ml Vial) 4 mg IVP Q6HR PRN PRN Reason: Nausea / Vomiting Oxybutynin Chloride (Oxybutynin 5mg Tablet) 5 mg PO BID [facility] Last Admin: 09/24/21 09:04 Dose: 5 mg Oxycodone HCl (Oxycodone 5 Mg Tablet) 5 mg PO Q4HR PRN PRN Reason: Pain 5 to 7 Last Admin: 09/24/21 00:19 Dose: 5 mg Polyethylene Glycol (Polyethylene Glycol 3350 17 Gm Packet) 17 gm PO DAILY [facility] Last Admin: 09/24/21 11:23 Dose: Not Given Saccharomyces Boulardii (Saccharomyces Boulardii 250 Mg Capsule) 250 mg PO BIDWM [facility] Last Admin: 09/24/21 09:05 Dose: 250 mg Sodium Chloride (Sodium Chloride Flush 0.9% 10 Ml Syringe) 10 ml IVP PRN PRN PRN Reason: NEEDED PER PROVIDER ORDERS Sodium Chloride (Sodium Chloride Flush 0.9% 10 Ml Syringe) 10 ml IVP 0100,0900,1700 [facility] Last Admin: 09/24/21 09:06 Dose: 10 ml Tamsulosin HCl (Tamsulosin 0.4 Mg Capsule) 0.4 mg PO DAILY [facility] Last Admin: 09/24/21 09:05 Dose: 0.4 mg Aspirin Chewable [St Rodolfo Aspirin] 81 mg PO DAILY 04/24/19 lisinopriL [Prinivil] 10 mg PO DAILY 04/24/19 Acetaminophen 500 mg PO DAILY PRN 05/07/19 Amiodarone [Pacerone] 100 mg PO DAILY 05/07/19 Carvedilol [Coreg] 12.5 mg PO BID 05/07/19 Rosuvastatin Calcium [Crestor] 40 mg PO DAILY 05/07/19
[2021-09-24 20:16] LABS: HGB - HEMOGLOBIN 8.7 g/dL (14.0-18.0)
[2021-09-24] MEDS: ATORVASTATIN 40 MG TABLET PO SCH (20:32)
[2021-09-25] MEDS: SODIUM CHLORIDE FLUSH 0.9% 10 ML SYRINGE IVP SCH ×3 (00:05→18:00)
[2021-09-25 04:56] LABS: BASOPHILS % (AUTO) 0.5 %; EOSINOPHILS # (AUTO) 0.5 10^3/uL (0.0-0.7); EOSINOPHILS % (AUTO) 7.5 %; HCT - HEMATOCRIT 29.4 % (42.0-52.0); HGB - HEMOGLOBIN 8.4 g/dL (14.0-18.0); LYMPHOCYTES # (AUTO) 0.9 10^3/uL (1.5-3.5); LYMPHOCYTES % (AUTO) 15.1 %; MEAN CORPUSCULAR HEMOGLOBIN 21.2 pg (27.0-31.0); MEAN CORPUSCULAR HGB CONC 28.6 g/dL (32.0-36.0); MEAN CORPUSCULAR VOLUME 74.2 fL (80.0-94.0); MEAN PLATELET VOLUME 11.2 fL (7.4-11.4); MONOCYTES # (AUTO) 0.8 10^3/uL (0.0-1.0); MONOCYTES % (AUTO) 13.2 %; NEUTROPHILS # (AUTO) 3.8 10^3/uL (1.5-6.6); NEUTROPHILS % (AUTO) 63.4 %; PLT - PLATELET COUNT 149 10^3/uL (130-450); RED BLOOD COUNT 3.96 10^6/uL (4.70-6.10); RED CELL DISTRIBUTION WIDTH 20.9 % (12.0-15.0)
[2021-09-25 05:10] LABS: SLIDE REVIEW? Indicated
[2021-09-25 05:11] LABS: CALCIUM 8.1 mg/dL (8.5-10.3); CREATININE 1.1 mg/dL (0.6-1.2); POTASSIUM 3.7 mmol/L (3.5-5.0)
[2021-09-25 05:12] LABS: PLATELET ESTIMATE, MANUAL NORMAL (130-450,000) (NORMAL); PLATELET MORPHOLOGY NORMAL APPEARANCE (NORMAL); WBC MORPHOLOGY (MULTIPLE) NORMAL APPEARANCE (NORMAL)
[2021-09-25] MEDS: BACLOFEN 10 MG TABLET PO PRN (06:09)
[2021-09-25] MEDS: FERROUS GLUCONATE 324 MG TABLET PO SCH (08:52)
[2021-09-25] MEDS: TAMSULOSIN 0.4 MG CAPSULE PO SCH (08:52)
[2021-09-25] MEDS: cefTRIAXone 1 GM in SODIUM CHLORIDE 0.9% MINIBAG 100 ML IV SCH (08:53)
[2021-09-25] MEDS: OXYBUTYNIN 5MG TABLET PO SCH ×2 (08:53→22:02)
[2021-09-25] MEDS: polyethylene glycoL 3350 17 GM PACKET PO SCH (08:57)
[2021-09-25] MEDS: SACCHAROMYCES BOULARDII 250 MG CAPSULE PO SCH ×2 (08:57→18:00)
[2021-09-25 11:12] LABS: HCT - HEMATOCRIT 32.3 % (42.0-52.0); HGB - HEMOGLOBIN 9.4 g/dL (14.0-18.0)
--- NOTE | 2021-09-25 12:17 | PROVIDER PROGRESS NOTE ---
Assessment/Plan - Problem List (1) Hemorrhagic cystitis Assessment/Plan: 09/25/21 improved. The color of irrigation solution is less red/pink color. but pt still report he had bleeding on last night. he report he had to stay in [facility] for nearly 20 days for his hematuria. his HGB is elevated now. continue irrigation, and continue lab HGB monitor 09/24 pt still has hematuria, and HGB drop to 7.4. nurse report he had low side BP as well. SBP was 90 per nurse report. order one blood transfusion, continue irrigation bladder, continue H&H monitor, per recommendation. continue antibiotics to treat UTI 09/23 After I with nurse Charlette resolved the blood clot blockage in the head of Rivera, then it appear resolved. the fluid from irrigation show normal color now, HGB is stable. continue NS irrigation on today, continue H&H monitor. (2)bradycardia with sinus pause 09/25 no reported sinus pause or significant bradycardia on last night. pt has normal arrange BP now. pt denies chest pain, dizziness. continue hold his home Coreg, continue tele and vital monitor pt's tele reveal HR 37 in the morning with 3.23 seconds sinus pause. we will hold pt's home meds Coreg now. continue tele monitor (3)elevated troponin 09/25 pt denies chest pain, BP is stable, he is Hemodynamic stable. troponin is flat value. 09/24 troponin is down to 165. pt denies chest pain, pt report he walk to bathroom and he is asymptomatic, he has no distress. pt's home Aspirin is hold because he continue hematuria and he need blood transfusion again. pt had elevated troponin to 310, repeat troponin still show at 390. EKG did not reveal acute Ischemic change, patient denies chest pain. Patient is hemodynamically stable now. Patient's echo done on today show 45-50Percent, with regional wall motion abnormality. But pt was recently disgnosis with NSTEMI at , we will ask for medical record from . Patient likely has demand ischemia from hematuria and anemia. pt only take his home blood thinner Aspirin now, resume home aspirin, coreg, statin, Lisinopril. pt refused to take his home Amiodarone, continue troponin check, continue tele monitor pt, continue lab and vital monitor. (4) Acute blood loss anemia Conclusion/Plan: 09/25 pt had another unit of blood , His hemoglobin is up to 9.4, Continue H&H monitor. continue supplement of iron 09/24 HGB is drop to 7.4, order 1 units of blood transfusion, continue H&H monitor Patient had 1 unit blood transfusion. now hemoglobin is 8.2 and stable. Anemia study show patient also had iron deficiency. start on iron pill. Continue H&H monitor for patient. (5) Urinary retention Conclusion/Plan: we will continue irrigation on today, If continue to improve, fluids did not show blood, hemoglobin is stable, then tomorrow we might try to remove Rivera catheter (6) History of non-ST elevation myocardial infarction (NSTEMI) Conclusion/Plan: as mentioned above. resume statin. pt refused to take his home Amiodarone (7) Chronic kidney disease (CKD), stage III (moderate) Conclusion/Plan: stable, continue lab monitor (8)hypotension 09/25 resolved. nurse report pt has low BP, SBP 90. assessed pt, pt is asymptomatic, pt denies any symptoms, he walked to bathroom without distress. reported Dr. Grisel Bradley, our MD and trolley car overhauler, she went to assess pt. now we order blood transfusion, order all pt's home BP meds. because pt had 45-50% EF in ECHO, pt is asymptomatic, we hold bolus of IVF now, closely vital and tele monitor pt now. If clinic needed, we will transfer pt to ICU status for care. (9)UTI UA culture reveal positive for Staph aureas but MSSA, sensitive to all antibiotics we test for. Per [facility], believe because UTI infection to cause pt's hematuria. continue Rocephin, add probiotics. - Current Meds Current Meds: Current Medications Generic Name Dose Route Start Last Admin Trade Name Freq PRN Reason Stop Dose Admin Acetaminophen 650 mg 09/22/21 21:40 09/24/21 00:19 Acetaminophen 325 Mg Tablet PO 650 mg Q4HR PRN Administration Pain 1 to 4 Atorvastatin Calcium 40 mg 09/23/21 21:00 09/24/21 20:32 Atorvastatin 40 Mg Tablet PO 40 mg QPM SONAM Administration Baclofen 10 mg 09/23/21 00:21 09/25/21 06:09 Baclofen 10 Mg Tablet PO 10 mg TID PRN Administration Bladder Spasms Ferrous Gluconate 324 mg 09/23/21 15:00 09/25/21 08:52 Ferrous Gluconate 324 Mg Tablet PO 324 mg DAILYWM SONAM Administration Ceftriaxone Sodium 1 gm/ 100 mls @ 200 mls/hr 09/23/21 09:30 09/25/21 09:25 Sodium Chloride IV Infused DAILY SONAM Infusion Morphine Sulfate 2 mg 09/23/21 06:52 09/24/21 02:44 Morphine 2 Mg/Ml Carpuject IVP 2 mg Q2HR PRN Administration PAIN Oxybutynin Chloride 5 mg 09/23/21 09:00 09/25/21 08:53 Oxybutynin 5mg Tablet PO 5 mg BID SONAM Administration Oxycodone HCl 5 mg 09/22/21 21:40 09/24/21 00:19 Oxycodone 5 Mg Tablet PO 5 mg Q4HR PRN Administration Pain 5 to 7 Polyethylene Glycol 17 gm 09/24/21 09:00 09/25/21 08:57 Polyethylene Glycol 3350 17 Gm Packet PO 17 gm DAILY SONAM Administration Saccharomyces Boulardii 250 mg 09/24/21 08:00 09/25/21 08:57 Saccharomyces Boulardii 250 Mg Capsule PO 250 mg BIDWM SONAM Administration Sodium Chloride 10 ml 09/23/21 01:00 09/25/21 08:53 Sodium Chloride Flush 0.9% 10 Ml Syringe IVP 10 ml 0100,0900,1700 SONAM Administration Tamsulosin HCl 0.4 mg 09/23/21 09:00 09/25/21 08:52 Tamsulosin 0.4 Mg Capsule PO 0.4 mg DAILY SONAM Administration - Lab Result Fish Bone Diagrams: 09/25/21 11:05 09/25/21 04:50 - Additional Planning My Orders: My Active Orders 09/25/21 17:00 H&H [HEMOGLOBIN AND HEMATOCRIT] [HEME] Q6H 09/26/21 05:00 BMP - BASIC METABOLIC PANEL [CHEM] DAILYLAB CBC - COMP BLD CT W/AUTO DIFF [HEME] DAILYLAB 09/27/21 05:00 BMP - BASIC METABOLIC PANEL [CHEM] DAILYLAB CBC - COMP BLD CT W/AUTO DIFF [HEME] DAILYLAB 09/28/21 05:00 BMP - BASIC METABOLIC PANEL [CHEM] DAILYLAB CBC - COMP BLD CT W/AUTO DIFF [HEME] DAILYLAB Subjective - Subjective Patient Reports: Feeling Better, Resting Comfortably Objective Vital Signs: Vital Signs - 24 hr 09/24/21 09/24/21 09/24/21 13:00 17:00 17:07 Temperature 36.6 C 36.8 C 36.6 C Heart Rate 57 L Heart Rate [ 60 57 L Radial] Respiratory 19 16 16 Rate Blood Pressure 107/44 L Blood Pressure 83/44 L 119/50 L [Left Brachial artery] Blood Pressure 89/40 L [Right Brachial artery] O2 Saturation 96 97 09/24/21 09/24/21 09/24/21 17:25 18:52 20:34 Temperature 36.8 C 36.9 C 37.5 C Heart Rate 57 L 57 L Heart Rate [ 56 L Radial] Respiratory 16 18 16 Rate Blood Pressure 119/50 L 121/57 L Blood Pressure 119/45 L [Left Brachial artery] Blood Pressure [Right Brachial artery] O2 Saturation 97 09/25/21 09/25/21 09/25/21 01:00 05:00 08:43 Temperature 36.6 C 36.7 C 36.8 C Heart Rate Heart Rate [ 59 L 56 L 60 Radial] Respiratory 16 16 16 Rate Blood Pressure Blood Pressure 140/55 H 124/52 L 119/50 L [Left Brachial artery] Blood Pressure [Right Brachial artery] O2 Saturation 97 95 98 09/25/21 09:32 Temperature 36.6 C Heart Rate Heart Rate [ Radial] Respiratory Rate Blood Pressure Blood Pressure [Left Brachial artery] Blood Pressure [Right Brachial artery] O2 Saturation Oxygen O2 Source Room air I&O (Last 24 Hrs): Intake and Output Totals x24h 09/23/21 09/24/21 09/25/21 23:59 23:59 23:59 Intake Total 9865 33938 8900 Output Total 9225 54759 16165 Balance 640 -850 -2500 General: Alert, Oriented x3, No acute distress HEENT: Atraumatic Neck: Supple Lymphatic: no adenopathy Neuro: Alert, Non Focal, Oriented Times 3 Cardiovascular: Regular rate, Normal S1, Normal S2 Respiratory: Chest non-tender, No respiratory distress Abdomen: Normal bowel sounds, Soft Extremities: Normal pulses - Results Results: Laboratory Results WBC 6.0 x10^3/uL (4.8-10.8) 09/25/21 04:50 RBC 3.96 10^6/uL (4.70-6.10) L 09/25/21 04:50 Hgb 9.4 g/dL (14.0-18.0) L 09/25/21 11:05 Hct 32.3 % (42.0-52.0) L 09/25/21 11:05 MCV 74.2 fL (80.0-94.0) L 09/25/21 04:50 MCH 21.2 pg (27.0-31.0) L 09/25/21 04:50 MCHC 28.6 g/dL (32.0-36.0) L 09/25/21 04:50 RDW 20.9 % (12.0-15.0) H 09/25/21 04:50 Plt Count 149 10^3/uL (130-450) 09/25/21 04:50 MPV 11.2 fL (7.4-11.4) 09/25/21 04:50 Reticulocyte % (Auto) 1.16 % (0.5-2.3) 09/23/21 04:58 Neut # (Auto) 3.8 10^3/uL (1.5-6.6) 09/25/21 04:50 Lymph # (Auto) 0.9 10^3/uL (1.5-3.5) L 09/25/21 04:50 [place] # (Auto) 0.8 10^3/uL (0.0-1.0) 09/25/21 04:50 Eos # (Auto) 0.5 10^3/uL (0.0-0.7) 09/25/21 04:50 Baso # (Auto) 0.0 10^3/uL (0.0-0.1) 09/25/21 04:50 Absolute Nucleated RBC 0.00 x10^3/uL 09/25/21 04:50 Nucleated RBC % 0.0 /100WBC 09/25/21 04:50 Manual Slide Review Indicated 09/25/21 04:50 WBC Morphology NORMAL APPEARANCE (NORMAL) 09/25/21 04:50 Platelet Estimate NORMAL (130-450,000) (NORMAL) 09/25/21 04:50 Platelet Morphology NORMAL APPEARANCE (NORMAL) 09/25/21 04:50 RBC Morph Micro Appear 1+ ANISOCYTOSIS (NORMAL) 1+ HYPOCHROMASIA (NORMAL) 1+ TEARDROP CELLS (NORMAL) 09/25/21 04:50 RBC Morph Micro Appear 1+ ANISOCYTOSIS (NORMAL) 1+ HYPOCHROMASIA (NORMAL) 1+ TEARDROP CELLS (NORMAL) 09/25/21 04:50 RBC Morph Micro Appear 1+ ANISOCYTOSIS (NORMAL) 1+ HYPOCHROMASIA (NORMAL) 1+ TEARDROP CELLS (NORMAL) 09/25/21 04:50 Absolute Retic 0.046 10^6/uL (0.020-0.110) 09/23/21 04:58 PT 14.3 secs (9.9-12.6) H 09/22/21 13:56 INR 1.3 (0.8-1.2) H 09/22/21 13:56 APTT 28.7 secs (24.9-33.3) 09/22/21 13:56 Sodium 139 mmol/L (135-145) 09/25/21 04:50 Potassium 3.7 mmol/L (3.5-5.0) 09/25/21 04:50 Chloride 106 mmol/L (101-111) 09/25/21 04:50 Carbon Dioxide 24 mmol/L (21-32) 09/25/21 04:50 Anion Gap 9.0 (6-13) 09/25/21 04:50 BUN 17 mg/dL (6-20) 09/25/21 04:50 Creatinine 1.1 mg/dL (0.6-1.2) 09/25/21 04:50 Estimated GFR (MDRD) 66 (>89) L 09/25/21 04:50 Glucose 106 mg/dL (70-100) H 09/25/21 04:50 Calcium 8.1 mg/dL (8.5-10.3) L 09/25/21 04:50 Iron 20 ug/dL (45-182) L 09/23/21 04:58 TIBC 370 ug/dL (250-450) 09/23/21 04:58 % Saturation 5 % (20-50) L 09/23/21 04:58 Transferrin 264 mg/dL (180-329) 09/23/21 04:58 Ferritin 15.2 ng/mL (23.9-336.2) L 09/23/21 04:58 Total Bilirubin 0.3 mg/dL (0.2-1.0) 09/22/21 13:56 AST 28 IU/L (10-42) 09/22/21 13:56 ALT 29 IU/L (10-60) 09/22/21 13:56 Alkaline Phosphatase 72 IU/L (42-121) 09/22/21 13:56 Lactate Dehydrogenase 129 IU/L (91-225) 09/23/21 04:58 Troponin I High Sens 171.6 ng/L (2.3-19.7) H* 09/24/21 20:01 Total Protein 6.8 g/dL (6.7-8.2) 09/22/21 13:56 Albumin 3.0 g/dL (3.2-5.5) L 09/22/21 13:56 Globulin 3.8 g/dL (2.1-4.2) 09/22/21 13:56 Albumin/Globulin Ratio 0.8 (1.0-2.2) L 09/22/21 13:56 Vitamin B12 437 pg/mL (180-914) 09/23/21 04:58 Urine Color RED/BLOODY 09/22/21 13:18 Urine Clarity BLOODY (CLEAR) 09/22/21 13:18 Urine pH 6.5 PH (5.0-7.5) 09/22/21 13:18 Ur Specific [place] 1.020 (1.002-1.030) 09/22/21 13:18 Urine Protein >=300 mg/dL (NEGATIVE) H 09/22/21 13:18 Urine Glucose (UA) NEGATIVE mg/dL (NEGATIVE) 09/22/21 13:18 Urine Ketones NEGATIVE mg/dL (NEGATIVE) 09/22/21 13:18 Urine Occult Blood LARGE (NEGATIVE) H 09/22/21 13:18 Urine Nitrite NEGATIVE (NEGATIVE) 09/22/21 13:18 Urine Bilirubin NEGATIVE (NEGATIVE) 09/22/21 13:18 Urine Urobilinogen 0.2 (NORMAL) E.U./dL (NORMAL) 09/22/21 13:18 Ur Leukocyte Esterase SMALL (NEGATIVE) H 09/22/21 13:18 Urine RBC TNTC /HPF (0-5) H 09/22/21 13:18 Urine WBC 0-3 /HPF (0-3) 09/22/21 13:18 Ur Squamous Epith Cells NONE SEEN (<= Few) 09/22/21 13:18 Urine Bacteria None Seen /HPF (None Seen) 09/22/21 13:18 Ur Microscopic Review INDICATED 09/22/21 13:18 Urine Culture Comments INDICATED 09/22/21 13:18 Nasal Adenovirus (PCR) NOT DETECTED 09/22/21 14:52 Nasal B. parapertussis DNA (PCR) NOT DETECTED 09/22/21 14:52 Nasal Coronavir 229E PCR NOT DETECTED 09/22/21 14:52 Nasal Coronavir HKU1 PCR NOT DETECTED 09/22/21 14:52 Nasal Coronavir NL63 PCR NOT DETECTED 09/22/21 14:52 Nasal Coronavir OC43 PCR NOT DETECTED 09/22/21 14:52 Nasal Enterovir/Rhinovir PCR NOT DETECTED 09/22/21 14:52 Nasal Influenza B PCR NOT DETECTED 09/22/21 14:52 Nasal Influenza A PCR NOT DETECTED 09/22/21 14:52 Nasal Parainfluen 1 PCR NOT DETECTED 09/22/21 14:52 Nasal Parainfluen 2 PCR NOT DETECTED 09/22/21 14:52 Nasal Parainfluen 3 PCR NOT DETECTED 09/22/21 14:52 Nasal Parainfluen 4 PCR NOT DETECTED 09/22/21 14:52 Nasal RSV (PCR) NOT DETECTED 09/22/21 14:52 Nasal B.pertussis DNA PCR NOT DETECTED 09/22/21 14:52 Nasal C.pneumoniae (PCR) NOT DETECTED 09/22/21 14:52 [place] Human Metapneumo PCR NOT DETECTED 09/22/21 14:52 Nasal M.pneumoniae (PCR) NOT DETECTED 09/22/21 14:52 Nasal SARS-CoV-2 (PCR) NOT DETECTED 09/22/21 14:52 Blood Type A POSITIVE 09/22/21 15:00 Blood Type Recheck A POSITIVE 09/22/21 13:56 Antibody Screen NEGATIVE 09/22/21 15:00 Crossmatch IS Only See Detail 09/22/21 15:00 Sepsis Event Note (H) - Evaluation Current Stage of Sepsis: Ruled out ABX Reporting Has patient been on IV antibiotics over the past 48 hours?: Yes Current Medications - Current Medications Current Medications: Active Medications Acetaminophen (Acetaminophen 325 Mg Tablet) 650 mg PO Q4HR PRN PRN Reason: Pain 1 to 4 Last Admin: 09/24/21 00:19 Dose: 650 mg Atorvastatin Calcium (Atorvastatin 40 Mg Tablet) 40 mg PO QPM [facility] Last Admin: 09/24/21 20:32 Dose: 40 mg Baclofen (Baclofen 10 Mg Tablet) 10 mg PO TID PRN PRN Reason: Bladder Spasms Last Admin: 09/25/21 06:09 Dose: 10 mg Ferrous Gluconate (Ferrous Gluconate 324 Mg Tablet) 324 mg PO DAILYWM [facility] Last Admin: 09/25/21 08:52 Dose: 324 mg Ceftriaxone Sodium 1 gm/ (Sodium Chloride) 100 mls @ 200 mls/hr IV DAILY [facility] Last Infusion: 09/25/21 09:25 Dose: Infused Morphine Sulfate (Morphine 2 Mg/Ml Carpuject) 2 mg IVP Q2HR PRN PRN Reason: PAIN Last Admin: 09/24/21 02:44 Dose: 2 mg Ondansetron HCl (Ondansetron Odt 4 Mg Tablet) 4 mg TL Q6HR PRN PRN Reason: Nausea / Vomiting Ondansetron HCl (Ondansetron 4 Mg/2 Ml Vial) 4 mg IVP Q6HR PRN PRN Reason: Nausea / Vomiting Oxybutynin Chloride (Oxybutynin 5mg Tablet) 5 mg PO BID [facility] Last Admin: 09/25/21 08:53 Dose: 5 mg Oxycodone HCl (Oxycodone 5 Mg Tablet) 5 mg PO Q4HR PRN PRN Reason: Pain 5 to 7 Last Admin: 09/24/21 00:19 Dose: 5 mg Polyethylene Glycol (Polyethylene Glycol 3350 17 Gm Packet) 17 gm PO DAILY [facility] Last Admin: 09/25/21 08:57 Dose: 17 gm Saccharomyces Boulardii (Saccharomyces Boulardii 250 Mg Capsule) 250 mg PO BIDWM [facility] Last Admin: 09/25/21 08:57 Dose: 250 mg Sodium Chloride (Sodium Chloride Flush 0.9% 10 Ml Syringe) 10 ml IVP PRN PRN PRN Reason: NEEDED PER PROVIDER ORDERS Sodium Chloride (Sodium Chloride Flush 0.9% 10 Ml Syringe) 10 ml IVP 0100,0900,1700 [facility] Last Admin: 09/25/21 08:53 Dose: 10 ml Tamsulosin HCl (Tamsulosin 0.4 Mg Capsule) 0.4 mg PO DAILY [facility] Last Admin: 09/25/21 08:52 Dose: 0.4 mg Aspirin Chewable [St Rodolfo Aspirin] 81 mg PO DAILY 04/24/19 lisinopriL [Prinivil] 10 mg PO DAILY 04/24/19 Acetaminophen 500 mg PO DAILY PRN 05/07/19 Amiodarone [Pacerone] 100 mg PO DAILY 05/07/19 Carvedilol [Coreg] 12.5 mg PO BID 05/07/19 Rosuvastatin Calcium [Crestor] 40 mg PO DAILY 05/07/19
[2021-09-25 17:00] LABS: HGB - HEMOGLOBIN 8.3 g/dL (14.0-18.0)
[2021-09-25] MEDS: ATORVASTATIN 40 MG TABLET PO SCH (22:02)
[2021-09-25 23:44] LABS: HCT - HEMATOCRIT 30.7 % (42.0-52.0); HGB - HEMOGLOBIN 8.9 g/dL (14.0-18.0)
[2021-09-26] MEDS: BACLOFEN 10 MG TABLET PO PRN ×3 (01:45→20:15)
[2021-09-26] MEDS: SODIUM CHLORIDE FLUSH 0.9% 10 ML SYRINGE IVP SCH ×3 (01:45→17:27)
[2021-09-26] MEDS: MORPHINE 2 MG/ML CARPUJECT IVP PRN (01:45)
[2021-09-26 06:09] LABS: BASOPHILS % (AUTO) 0.5 %; EOSINOPHILS # (AUTO) 0.5 10^3/uL (0.0-0.7); EOSINOPHILS % (AUTO) 7.4 %; HCT - HEMATOCRIT 29.6 % (42.0-52.0); HGB - HEMOGLOBIN 8.6 g/dL (14.0-18.0); LYMPHOCYTES # (AUTO) 1.1 10^3/uL (1.5-3.5); LYMPHOCYTES % (AUTO) 17.1 %; MEAN CORPUSCULAR HEMOGLOBIN 21.1 pg (27.0-31.0); MEAN CORPUSCULAR HGB CONC 29.1 g/dL (32.0-36.0); MEAN CORPUSCULAR VOLUME 72.5 fL (80.0-94.0); MEAN PLATELET VOLUME 10.1 fL (7.4-11.4); MONOCYTES # (AUTO) 0.7 10^3/uL (0.0-1.0); MONOCYTES % (AUTO) 11.4 %; NEUTROPHILS % (AUTO) 63.1 %; PLT - PLATELET COUNT 153 10^3/uL (130-450); RED BLOOD COUNT 4.08 10^6/uL (4.70-6.10); RED CELL DISTRIBUTION WIDTH 21.4 % (12.0-15.0); WHITE BLOOD COUNT 6.3 x10^3/uL (4.8-10.8)
[2021-09-26 06:12] LABS: CALCIUM 8.2 mg/dL (8.5-10.3); CREATININE 1.1 mg/dL (0.6-1.2)
[2021-09-26 06:13] LABS: SLIDE REVIEW? Indicated
[2021-09-26 06:31] LABS: PLATELET ESTIMATE, MANUAL NORMAL (130-450,000) (NORMAL); PLATELET MORPHOLOGY NORMAL APPEARANCE (NORMAL)
[2021-09-26] MEDS: ACETAMINOPHEN 325 MG TABLET PO PRN ×3 (06:31→19:58)
[2021-09-26 06:32] LABS: WBC MORPHOLOGY (MULTIPLE) NORMAL APPEARANCE (NORMAL)
[2021-09-26] MEDS: oxyCODONE 5 MG TABLET PO PRN (06:45)
[2021-09-26] MEDS: cefTRIAXone 1 GM in SODIUM CHLORIDE 0.9% MINIBAG 100 ML IV SCH (08:19)
[2021-09-26] MEDS: TAMSULOSIN 0.4 MG CAPSULE PO SCH (08:19)
[2021-09-26] MEDS: FERROUS GLUCONATE 324 MG TABLET PO SCH (08:19)
[2021-09-26] MEDS: OXYBUTYNIN 5MG TABLET PO SCH ×2 (08:19→20:17)
[2021-09-26] MEDS: SACCHAROMYCES BOULARDII 250 MG CAPSULE PO SCH ×2 (08:19→17:27)
[2021-09-26] MEDS: polyethylene glycoL 3350 17 GM PACKET PO SCH (08:20)
--- NOTE | 2021-09-26 11:42 | PROVIDER PROGRESS NOTE ---
Subjective - Prog Note Date Prog Note Date: 09/26/21 - Subjective Pt reports feeling: No change Subjective: Pt reports he slept well overnight but was confused as to the time of day. Had to be reoriented as he thought it was 830 at night, not 0830am. Having bladder spasms with passing of clots, believes the pain is relieved once the clot has passed. Denies fevers, chills, nausea, only complaints are bladder spasms and dysuria. Objective - Vital Signs/Intake & Output Reviewed Vital Signs: Yes Vital Signs: Vital Signs x48h Temp Pulse Resp BP Pulse Ox 09/26/21 07:55 36.5 C 51 L 20 119/53 L 68 L 09/26/21 05:00 38.2 C H 58 L 16 98 Intake & Output: Intake & Output 09/23/21 09/24/21 09/25/21 09/26/21 23:59 23:59 23:59 23:59 Intake Total 9865 35972 94844 64943 Output Total 9225 96821 40392 9800 Balance 640 850 -5240 320 - Objective General Appearance: positive: No acute distress, Alert Eyes Bilateral: positive: Normal inspection, PERRL, No lid inflammation, No scleral icterus ENT: positive: Dry mucous membranes Neck: positive: Nml inspection Respiratory: positive: Chest non-tender, No respiratory distress, Breath sounds nml Cardiovascular: positive: Regular rate & rhythm, No murmur Peripheral Pulses: 2+ Dorsalis pedis (R), 2+ Dorsalis pedis (L) Abdomen: positive: Non-tender, No organomegaly, Nml bowel sounds, No distention Skin: positive: Warm, Dry, Pallor Extremities: positive: Non-tender, Full ROM, Nml appearance Neurologic/Psychiatric: positive: Other (Disoriented to time of day this morning but able to state where he is, why he is here, and the year. Disorientation was likely due to low light on in the room and curtains closed.) - Lab Results Fish Bones: 09/26/21 05:52 09/26/21 05:52 Other Labs: Lab Results x24hrs 09/26/21 09/26/21 09/25/21 Range/Units 05:52 05:52 23:37 WBC 6.3 (4.8-10.8) x10^3/uL RBC 4.08 L (4.70-6.10) 10^6/uL Hgb 8.6 L 8.9 L (14.0-18.0) g/dL Hct 29.6 L 30.7 L (42.0-52.0) % MCV 72.5 L (80.0-94.0) fL MCH 21.1 L (27.0-31.0) pg MCHC 29.1 L (32.0-36.0) g/dL RDW 21.4 H (12.0-15.0) % Plt Count 153 (130-450) 10^3/uL MPV 10.1 (7.4-11.4) fL Neut # (Auto) 4.0 (1.5-6.6) 10^3/uL Lymph # (Auto) 1.1 L (1.5-3.5) 10^3/uL [place] # (Auto) 0.7 (0.0-1.0) 10^3/uL Eos # (Auto) 0.5 (0.0-0.7) 10^3/uL Baso # (Auto) 0.0 (0.0-0.1) 10^3/uL Absolute Nucleated RBC 0.00 x10^3/uL Nucleated RBC % 0.0 /100WBC Manual Slide Review Indicated WBC Morphology NORMAL APPEARANCE (NORMAL) Platelet Estimate NORMAL (130-450,000) (NORMAL) Platelet Morphology NORMAL APPEARANCE (NORMAL) RBC Morph Micro Appear 2+ HYPOCHROMASIA (NORMAL) Sodium 140 (135-145) mmol/L Potassium 4.0 (3.5-5.0) mmol/L Chloride 105 (101-111) mmol/L Carbon Dioxide 26 (21-32) mmol/L Anion Gap 9.0 (6-13) BUN 16 (6-20) mg/dL Creatinine 1.1 (0.6-1.2) mg/dL Estimated GFR (MDRD) 66 L (>89) Glucose 114 H (70-100) mg/dL Calcium 8.2 L (8.5-10.3) mg/dL 09/25/21 Range/Units 16:53 WBC (4.8-10.8) x10^3/uL RBC (4.70-6.10) 10^6/uL Hgb 8.3 L (14.0-18.0) g/dL Hct 29.0 L (42.0-52.0) % MCV (80.0-94.0) fL MCH (27.0-31.0) pg MCHC (32.0-36.0) g/dL RDW (12.0-15.0) % Plt Count (130-450) 10^3/uL MPV (7.4-11.4) fL Neut # (Auto) (1.5-6.6) 10^3/uL Lymph # (Auto) (1.5-3.5) 10^3/uL [place] # (Auto) (0.0-1.0) 10^3/uL Eos # (Auto) (0.0-0.7) 10^3/uL Baso # (Auto) (0.0-0.1) 10^3/uL Absolute Nucleated RBC x10^3/uL Nucleated RBC % /100WBC Manual Slide Review WBC Morphology (NORMAL) Platelet Estimate (NORMAL) Platelet Morphology (NORMAL) RBC Morph Micro Appear (NORMAL) Sodium (135-145) mmol/L Potassium (3.5-5.0) mmol/L Chloride (101-111) mmol/L Carbon Dioxide (21-32) mmol/L Anion Gap (6-13) BUN (6-20) mg/dL Creatinine (0.6-1.2) mg/dL Estimated GFR (MDRD) (>89) Glucose (70-100) mg/dL Calcium (8.5-10.3) mg/dL ABX Reporting Has patient been on IV antibiotics over the past 48 hours?: Yes Sepsis Event Note (H) - Evaluation Current Stage of Sepsis: Ruled out Assessment/Plan - Problem List (1) Hemorrhagic cystitis Impression: Still with blood clots passing. Early in the morning the irrigation was more clear and pink, however around 0900 he started passing clots again and the irrigation was darker red. He is having corresponding bladder spasms when the clots pass. Per previous provider notes his last episode of hemorrhagic cystitis required a 20 day admission in . On morning labs today his Hgb is 8.6, staying steady as hit has been 8.6-8.9-8.3-9.4 on the last few checks. Will continue to monitor both the irrigation, with nursing titrating the rate as needed, as well as monitoring the hgb. Vitals have remained stable low, with HR 50s-60s and BPs 110s/50-60s. (2) Bradycardia Impression: Stable. Heart rate has been 50s-60s overnight. No sinus pause noted overnight. Low normal BP. Denies chest pain, dizziness or shortness of breath. Will continue to hold the home Coreg and continue telemetry. (3) Elevated troponin Impression: Elevated troponin on admission, at last check was trending down. Denies chest pain and is hemodynamically stable with low normal BP and bradycardia. Low threshold for re-checking should he develop chest pain or irregular rhythm. Recent echo performed revealed EF 45-50%, with egional wall motion abnormality. He was recently diagnosed with NSTEMI at , likely has demand ischemia from hematuria and anemia. (4) Acute blood loss anemia Impression: Pt has required multiple blood transfusions due to blood loss. Hgb stable at 8.6, will recheck this afternoon given he continues to pass clots. Continue iron supplementation. (5) Urinary retention Impression: De Jesus continues to be in place for irrigation needed for hemorrhagic cystitis. Previous admission required 20 days for this issue to resolve, today is day 3 . Continues to require irrigation as he is still passing clots with dark red output, alternating with more pink output once the clots have passed. Will plan to remove once the irrigation solution clears and hemoglobin has remained stable but for now the de jesus is required for continuous bladder irrigation. His home dose of Flomax has been resumed. (6) History of non-ST elevation myocardial infarction (NSTEMI) Impression: Pt was recently diagnosed with NSTEMI at , likely has demand ischemia from hematuria and anemia. He is currently taking his statin but the other cardiac meds have been held due to his bradycardia and hypotension. Will continue with telemetry and vitals monitoring. He denies chest pain and palpitations, will obtain another EKG and troponins should these occur. Will need to follow up with his outpatient picture frames inspector after discharge. (7) Chronic kidney disease (CKD), stage III (moderate) Impression: Stable. Creatinine currently 1.1. Qualifiers: Chronic kidney disease stage 3 subtype: stage 3a (GFR 45-59) Qualified Code(s): N18.31 - Chronic kidney disease, stage 3a (8) Hypotension Impression: Stable. BPs have been 110-120s/50-60s with one diastolic of 44. He has been asymptomatic, denying chest pain, palpitations, dizziness, light-headedness and dyspnea. He has been able to get up to the bathroom without issue. Will continue to monitor for now. Is not currently receiving any cardiac meds other than Lipitor. Qualifiers: Hypotension type: unspecified hypotension type Qualified Code(s): I95.9 - Hypotension, unspecified (9) UTI (urinary tract infection) Impression: UA and culture were positive for MSSA, sensitive to Rocephin. His WBC has remained normal, Tmax of 38.2 at 0500 this morning. He was slightly confused this morning but easily reoriented. The UTI is likely related to his hematuria and retention. Will continue IV abx and probiotics. Qualifiers: Urinary tract infection type: acute cystitis Hematuria presence: with hematuria Qualified Code(s): N30.01 - Acute cystitis with hematuria
[2021-09-26 17:38] LABS: HCT - HEMATOCRIT 30.9 % (42.0-52.0); HGB - HEMOGLOBIN 8.8 g/dL (14.0-18.0); MEAN CORPUSCULAR HEMOGLOBIN 21.3 pg (27.0-31.0); MEAN CORPUSCULAR HGB CONC 28.5 g/dL (32.0-36.0); MEAN CORPUSCULAR VOLUME 74.6 fL (80.0-94.0); MEAN PLATELET VOLUME 9.8 fL (7.4-11.4); RED BLOOD COUNT 4.14 10^6/uL (4.70-6.10); WHITE BLOOD COUNT 5.8 x10^3/uL (4.8-10.8)
[2021-09-26] MEDS: ATORVASTATIN 40 MG TABLET PO SCH (20:16)
[2021-09-27] MEDS: BACLOFEN 10 MG TABLET PO PRN ×2 (04:03→20:05)
[2021-09-27] MEDS: SODIUM CHLORIDE FLUSH 0.9% 10 ML SYRINGE IVP SCH ×3 (04:03→20:06)
[2021-09-27 05:36] LABS: BASOPHILS % (AUTO) 0.5 %; EOSINOPHILS # (AUTO) 0.4 10^3/uL (0.0-0.7); EOSINOPHILS % (AUTO) 7.3 %; HCT - HEMATOCRIT 30.8 % (42.0-52.0); HGB - HEMOGLOBIN 8.8 g/dL (14.0-18.0); LYMPHOCYTES # (AUTO) 0.9 10^3/uL (1.5-3.5); LYMPHOCYTES % (AUTO) 15.5 %; MEAN CORPUSCULAR HEMOGLOBIN 21.1 pg (27.0-31.0); MEAN CORPUSCULAR HGB CONC 28.6 g/dL (32.0-36.0); MEAN CORPUSCULAR VOLUME 73.9 fL (80.0-94.0); MEAN PLATELET VOLUME 10.4 fL (7.4-11.4); MONOCYTES # (AUTO) 0.5 10^3/uL (0.0-1.0); NEUTROPHILS # (AUTO) 3.9 10^3/uL (1.5-6.6); NEUTROPHILS % (AUTO) 67.4 %; PLT - PLATELET COUNT 168 10^3/uL (130-450); RED BLOOD COUNT 4.17 10^6/uL (4.70-6.10); RED CELL DISTRIBUTION WIDTH 22.5 % (12.0-15.0); WHITE BLOOD COUNT 5.8 x10^3/uL (4.8-10.8)
[2021-09-27 05:41] LABS: CALCIUM 8.6 mg/dL (8.5-10.3); POTASSIUM 3.8 mmol/L (3.5-5.0)
[2021-09-27 05:42] LABS: SLIDE REVIEW? Indicated
[2021-09-27 06:10] LABS: PLATELET ESTIMATE, MANUAL NORMAL (130-450,000) (NORMAL); PLATELET MORPHOLOGY NORMAL APPEARANCE (NORMAL); WBC MORPHOLOGY (MULTIPLE) NORMAL APPEARANCE (NORMAL)
--- NOTE | 2021-09-27 07:20 | PROVIDER PROGRESS NOTE ---
Subjective - Prog Note Date Prog Note Date: 09/27/21 - Subjective Pt reports feeling: No change Subjective: Pt reports he slept well overnight but continues to have bladder spasms. Denies feeling dizzy or light-headed and does not have chest pain or palpitations. Wondering when he can go home but is willing to stay until deemed appropriate for discharge. Had an additional brief moment of confusion when he woke this morning and again thought it was night time, as with yesterday morning. Reoriented appropriately. Objective - Vital Signs/Intake & Output Reviewed Vital Signs: Yes Vital Signs: Vital Signs x48h Temp Pulse Resp BP Pulse Ox 09/27/21 05:00 60 20 99 09/27/21 00:04 36.2 C L 62 14 128/66 98 Intake & Output: Intake & Output 09/24/21 09/25/21 09/26/21 09/27/21 23:59 23:59 23:59 23:59 Intake Total 00240 34909 75337 2240 Output Total 40393 91915 28644 2300 Balance -850 -3430 -185 -60 - Objective General Appearance: positive: No acute distress, Alert ENT: positive: ENT inspection nml, No signs of dehydration Neck: positive: Nml inspection Respiratory: positive: Chest non-tender, No respiratory distress, Breath sounds nml Cardiovascular: positive: Regular rate & rhythm, No murmur Peripheral Pulses: 2+ Dorsalis pedis (R), 2+ Dorsalis pedis (L) Abdomen: positive: Non-tender, No organomegaly, Nml bowel sounds Skin: positive: Color nml, No rash, Warm, Dry Extremities: positive: Non-tender, Full ROM, Nml appearance Neurologic/Psychiatric: positive: Oriented x3 - Lab Results Fish Bones: 09/27/21 04:30 09/27/21 04:30 Other Labs: Lab Results x24hrs 09/27/21 09/27/21 09/26/21 Range/Units 04:30 04:30 17:25 WBC 5.8 5.8 (4.8-10.8) x10^3/uL RBC 4.17 L 4.14 L (4.70-6.10) 10^6/uL Hgb 8.8 L 8.8 L (14.0-18.0) g/dL Hct 30.8 L 30.9 L (42.0-52.0) % MCV 73.9 L 74.6 L (80.0-94.0) fL MCH 21.1 L 21.3 L (27.0-31.0) pg MCHC 28.6 L 28.5 L (32.0-36.0) g/dL RDW 22.5 H 22.0 H (12.0-15.0) % Plt Count 168 151 (130-450) 10^3/uL MPV 10.4 9.8 (7.4-11.4) fL Neut # (Auto) 3.9 (1.5-6.6) 10^3/uL Lymph # (Auto) 0.9 L (1.5-3.5) 10^3/uL [place] # (Auto) 0.5 (0.0-1.0) 10^3/uL Eos # (Auto) 0.4 (0.0-0.7) 10^3/uL Baso # (Auto) 0.0 (0.0-0.1) 10^3/uL Absolute Nucleated RBC 0.00 x10^3/uL Nucleated RBC % 0.0 /100WBC Manual Slide Review Indicated WBC Morphology NORMAL APPEARANCE (NORMAL) Platelet Estimate NORMAL (130-450,000) (NORMAL) Platelet Morphology NORMAL APPEARANCE (NORMAL) RBC Morph Micro Appear 2+ HYPOCHROMASIA (NORMAL) Sodium 142 (135-145) mmol/L Potassium 3.8 (3.5-5.0) mmol/L Chloride 103 (101-111) mmol/L Carbon Dioxide 27 (21-32) mmol/L Anion Gap 12.0 (6-13) BUN 19 (6-20) mg/dL Creatinine 1.0 (0.6-1.2) mg/dL Estimated GFR (MDRD) 73 L (>89) Glucose 119 H (70-100) mg/dL Calcium 8.6 (8.5-10.3) mg/dL ABX Reporting Has patient been on IV antibiotics over the past 48 hours?: Yes Sepsis Event Note (H) - Evaluation Current Stage of Sepsis: Ruled out Assessment/Plan - Problem List (1) Hemorrhagic cystitis Impression: Stable. Still with blood clots passing. He is having corresponding bladder spasms when the clots pass. Per previous provider notes his last episode of hemorrhagic cystitis required a 20 day admission in . On morning labs today his Hgb is 8.8, slightly increased from yesterday. Will continue to monitor bot h the irrigation, with nursing titrating the rate as needed, as well as monitoring the hgb. Vitals have remained stable low, with HR 50s-60s and BPs 110-120s/50-60s. (2) Bradycardia Impression: Stable. Heart rate has been 50s-60s overnight. No sinus pause noted overnight. Low normal BP. Denies chest pain, dizziness or shortness of breath. Will continue to hold the home Coreg and continue telemetry. (3) Acute blood loss anemia Impression: Stable. Pt has required multiple blood transfusions due to blood loss. Hgb stable at 8.8 (up from 8.6 yesterday am), will continue to monitor. Continue iron supplementation. (4) Urinary retention Impression: De Jesus continues to be in place for irrigation needed for hemorrhagic cystitis. Previous admission required 20 days for this issue to resolve, today is day 4. Continues to require irrigation as he is still passing clots with dark red output, alternating with more pink output once the clots have passed. Will plan to remove once the irrigation solution clears and hemoglobin has remained stable but for now the de jesus is required for continuous bladder irrigation. His home dose of Flomax has been resumed. (5) History of non-ST elevation myocardial infarction (NSTEMI) Impression: Pt was recently diagnosed with NSTEMI at , likely has demand ischemia from hematuria and anemia. He is currently taking his statin but the other cardiac meds have been held due to his bradycardia and hypotension. Will continue with telemetry and vitals monitoring. He denies chest pain and palpitations, will obtain another EKG and troponins should these occur. Will need to follow up wit h his outpatient lodging manager after discharge. (6) Chronic kidney disease (CKD), stage III (moderate) Impression: Stable. Creatinine currently 1.0. Qualifiers: Chronic kidney disease stage 3 subtype: stage 3a (GFR 45-59) Qualified Code(s): N18.31 - Chronic kidney disease, stage 3a (7) Hypotension Impression: Stable. BPs have been 110-130s/50-60s. He has been asymptomatic, denying chest pain, palpitations, dizziness, light-headedness and dyspnea. He has been able to get up to the bathroom without issue. Will continue to monitor for now. Is not currently receiving any cardiac meds other than Lipitor. Qualifiers: Hypotension type: unspecified hypotension type Qualified Code(s): I95.9 - Hypotension, unspecified (8) UTI (urinary tract infection) Impression: UA and culture were positive for MSSA, sensitive to Rocephin. His WBC has remained normal, afebrile overnight. He was slightly confused this morning but easily reoriented. The UTI is likely related to his hematuria and retention. Will continue IV abx and probiotics. Qualifiers: Urinary tract infection type: acute cystitis Hematuria presence: with hematuria Qualified Code(s): N30.01 - Acute cystitis with hematuria (9) Elevated troponin Impression: Stable. Elevated troponin on admission, at last check was trending down. Denies chest pain and is hemodynamically stable with low normal BP and bradycardia. Low threshold for re-checking should he develop chest pain or irregular rhythm. Recent echo performed revealed EF 45-50%, with egional wall motion abnormality. He was recently diagnosed with NSTEMI at , likely has demand ischemia from hematuria and anemia.
[2021-09-27] MEDS: cefTRIAXone 1 GM in SODIUM CHLORIDE 0.9% MINIBAG 100 ML IV SCH (08:44)
[2021-09-27] MEDS: SACCHAROMYCES BOULARDII 250 MG CAPSULE PO SCH ×2 (08:45→20:05)
[2021-09-27] MEDS: OXYBUTYNIN 5MG TABLET PO SCH ×2 (08:45→20:05)
[2021-09-27] MEDS: FERROUS GLUCONATE 324 MG TABLET PO SCH (08:45)
[2021-09-27] MEDS: ACETAMINOPHEN 325 MG TABLET PO PRN (08:45)
[2021-09-27] MEDS: TAMSULOSIN 0.4 MG CAPSULE PO SCH (08:45)
[2021-09-27] MEDS: polyethylene glycoL 3350 17 GM PACKET PO SCH (08:46)
[2021-09-27] MEDS: ATORVASTATIN 40 MG TABLET PO SCH (20:06)
[2021-09-28] MEDS: ACETAMINOPHEN 325 MG TABLET PO PRN ×2 (01:27→22:56)
[2021-09-28] MEDS: oxyCODONE 5 MG TABLET PO PRN ×2 (01:28→22:57)
[2021-09-28] MEDS ORDERED: CALCIUM ACETATE/ALUMINUM SULF PACKET TOP ONE ×2 (02:28→08:00)
[2021-09-28] MEDS: SODIUM CHLORIDE FLUSH 0.9% 10 ML SYRINGE IVP SCH ×3 (03:41→20:13)
[2021-09-28 05:24] LABS: BASOPHILS % (AUTO) 0.5 %; EOSINOPHILS # (AUTO) 0.3 10^3/uL (0.0-0.7); EOSINOPHILS % (AUTO) 5.6 %; HCT - HEMATOCRIT 31.4 % (42.0-52.0); LYMPHOCYTES # (AUTO) 0.9 10^3/uL (1.5-3.5); LYMPHOCYTES % (AUTO) 14.2 %; MEAN CORPUSCULAR HEMOGLOBIN 21.4 pg (27.0-31.0); MEAN CORPUSCULAR HGB CONC 28.7 g/dL (32.0-36.0); MEAN CORPUSCULAR VOLUME 74.8 fL (80.0-94.0); MEAN PLATELET VOLUME 10.8 fL (7.4-11.4); MONOCYTES # (AUTO) 0.6 10^3/uL (0.0-1.0); MONOCYTES % (AUTO) 9.5 %; NEUTROPHILS # (AUTO) 4.3 10^3/uL (1.5-6.6); NEUTROPHILS % (AUTO) 69.9 %; PLT - PLATELET COUNT 175 10^3/uL (130-450); RED CELL DISTRIBUTION WIDTH 22.8 % (12.0-15.0); WHITE BLOOD COUNT 6.1 x10^3/uL (4.8-10.8)
[2021-09-28 05:28] LABS: SLIDE REVIEW? Indicated
[2021-09-28 05:29] LABS: CALCIUM 8.5 mg/dL (8.5-10.3); CREATININE 1.1 mg/dL (0.6-1.2); POTASSIUM 3.7 mmol/L (3.5-5.0)
[2021-09-28 05:40] LABS: PLATELET ESTIMATE, MANUAL NORMAL (130-450,000) (NORMAL); PLATELET MORPHOLOGY NORMAL APPEARANCE (NORMAL); WBC MORPHOLOGY (MULTIPLE) NORMAL APPEARANCE (NORMAL)
[2021-09-28] MEDS: cefTRIAXone 1 GM in SODIUM CHLORIDE 0.9% MINIBAG 100 ML IV SCH (08:26)
[2021-09-28] MEDS: FERROUS GLUCONATE 324 MG TABLET PO SCH (08:38)
[2021-09-28] MEDS: TAMSULOSIN 0.4 MG CAPSULE PO SCH (08:38)
[2021-09-28] MEDS: polyethylene glycoL 3350 17 GM PACKET PO SCH (08:39)
[2021-09-28] MEDS: SACCHAROMYCES BOULARDII 250 MG CAPSULE PO SCH ×2 (08:39→17:24)
[2021-09-28] MEDS: OXYBUTYNIN 5MG TABLET PO SCH ×2 (08:39→20:13)
--- NOTE | 2021-09-28 19:39 | PROVIDER PROGRESS NOTE ---
Assessment/Plan - Problem List (1) Hematuria Qualifiers: Hematuria type: gross Qualified Code(s): R31.0 - Gross hematuria Assessment/Plan: Brief presentation/Interval history 71-year-old patient with complex background including CHF, coronary artery disease and history of hematuria/hemorrhagic cystitis admitted on September 22 with hematuria. Was found anemic and required 1 U PRBC transfusion. On admission was found with mild troponin leak but no upgoing trend. Urine culture grew MSSA and since September 23 patient had been on ceftriaxone. During this hospital stay aspirin was discontinued. Prior to admission Plavix was discontinued. At some point the patient was on Eliquis however prior to admission he was no longer on that medication. For coronary artery disease the patient had been on Coreg/beta-damian however he did not tolerate it as telemetry showed heart rates down to the 40s. Coreg was discontinued and subsequently heart rate remained stable with sinus bradycardia in the 50s. Patient does not have any complaints other than the hematuria and LQ abdominal discomfort. He denies chest pain, shortness of breath or any anginal symptoms. During the past few days patient continued with ongoing intermittent hematuria, when he was bleeding he passed large clots. He remained dependent on continuous bladder irrigation. Active problems/Diagoses Hematuria/hemorrhagic cystitis/ongoing problem, previously evaluated at [facility] s/p cystoscopy and cauterization Blood loss anemia requiring transfusion secondary to hemorrhagic cystitis/In the setting of coronary artery disease hemoglobin goal would be around 8 Platelet dysfunction/was on Plavix which was discontinued [employer], aspirin discontinued 5 days ago due to ongoing bleeding/antiplatelet agent to clear from the system would require about 7 days Elevated troponin/without upgoing trend/without clinical symptoms of angina, chest pain or shortness of breath MSSA urinary tract infection, day 6 on ceftriaxone Comorbidities/past medical problems Coronary artery disease/history of non-ST elevation MD, does not tolerate antiplatelet agent due to ongoing bleeding complication Bradycardia/ SSS/Coronary artery disease/was on beta-damian/Coreg however does not tolerate it due to bradycardia with heart rate around 50s/likely has sick sinus syndrome History of congestive heart failure, recent echocardiogram showed ejection fraction between 45 and 50%/regional wall motion abnormalities CKD/ Creatinine baseline described between 1.3 and 1.5 in the past, during hospitalization creatinine has been around 1.1 Plan/orders Reviewed chart notes, laboratories, medications, work-up and prior notes detailing work-up and past history including hospital stay at [facility] Beta-damian was discontinued due to bradycardia, during the past couple of days the patient had been hemodynamically stable therefore discontinuation of telemetry could be considered, decision will be deferred to the daytime provider Patient has complicated prolonged hospital stay, no need for daily laboratories Regarding urinary tract infection/MSSA UTI, finished 6 days on ceftriaxone, will switch to oral nitrofurantoin per sensitivity report Regarding history of non-ST elevation MD/coronary artery disease we will continue Lipitor, does not tolerate antiplatelet agent or beta-damian Hemodynamically stable, asymptomatic, heart rate between 50 and 60, SBP ~ 130s /no need to add antihypertensive Echocardiogram was ordered during this admission/pending Main problem keeping the patient hospitalized is ongoing hematuria requiring continuous bladder irrigation. The bleed is intermittent, although bleeding transiently stops, it always restarts with large clots and during the past week continuous bladder irrigation could not be discontinued. Yesterday intravesical Alum was ordered, however was not available in our hospital. Patient obviously cannot be hospitalized indefinitely and receive continuous bladder irrigation, therefore he would benefit from transfer to higher level of care and urology evaluation. Coordination of care/plan of care: I extensively discussed patient's current situation, diagnosis and recommendation for urology evaluation with the patient and with nursing. Patient agreed to transfer to higher level of care if accepted. - Current Meds Current Meds: Current Medications Generic Name Dose Route Start Last Admin Trade Name Freq PRN Reason Stop Dose Admin Acetaminophen 650 mg 09/22/21 21:40 09/28/21 01:27 Acetaminophen 325 Mg Tablet PO 650 mg Q4HR PRN Administration Pain 1 to 4 Atorvastatin Calcium 40 mg 09/23/21 21:00 09/27/21 20:06 Atorvastatin 40 Mg Tablet PO 40 mg QPM SONAM Administration Baclofen 10 mg 09/23/21 00:21 09/27/21 20:05 Baclofen 10 Mg Tablet PO 10 mg TID PRN Administration Bladder Spasms Ferrous Gluconate 324 mg 09/23/21 15:00 09/28/21 08:38 Ferrous Gluconate 324 Mg Tablet PO 324 mg DAILYWM SONAM Administration Ceftriaxone Sodium 1 gm/ 100 mls @ 200 mls/hr 09/23/21 09:30 09/28/21 09:00 Sodium Chloride IV Infused DAILY SONAM Infusion Morphine Sulfate 2 mg 09/23/21 06:52 09/26/21 01:45 Morphine 2 Mg/Ml Carpuject IVP 2 mg Q2HR PRN Administration PAIN Oxybutynin Chloride 5 mg 09/23/21 09:00 09/28/21 08:39 Oxybutynin 5mg Tablet PO 5 mg BID SONAM Administration Oxycodone HCl 5 mg 09/22/21 21:40 09/28/21 01:28 Oxycodone 5 Mg Tablet PO 5 mg Q4HR PRN Administration Pain 5 to 7 Polyethylene Glycol 17 gm 09/24/21 09:00 09/28/21 08:39 Polyethylene Glycol 3350 17 Gm Packet PO Not Given DAILY SONAM Saccharomyces Boulardii 250 mg 09/24/21 08:00 09/28/21 17:24 Saccharomyces Boulardii 250 Mg Capsule PO 250 mg BIDWM SONAM Administration Sodium Chloride 10 ml 09/23/21 01:00 09/28/21 08:39 Sodium Chloride Flush 0.9% 10 Ml Syringe IVP 10 ml 0100,0900,1700 SONAM Administration Tamsulosin HCl 0.4 mg 09/23/21 09:00 09/28/21 08:38 Tamsulosin 0.4 Mg Capsule PO 0.4 mg DAILY SONAM Administration - Lab Result Fish Bone Diagrams: 09/28/21 04:55 09/28/21 04:55 - EKG Results EKG Interpreted Independently: No EKG Comparison: Unchanged from prior EKG - Diagnostic Imaging Results Diagnostic Imaging Results: Other (Imaging/chart reviewed) - Additional Planning Condition/Complexity: Guarded Subjective - Subjective Patient Reports: Feeling Better, Abdominal Pain, Other (Ongoing hematuria) Nursing Reports: Other (Reviewed) Objective Vital Signs: Vital Signs - 24 hr 09/27/21 09/28/21 09/28/21 21:00 01:00 05:00 Temperature 36.5 C 36.8 C Heart Rate [ 62 82 76 Monitoring electrodes] Respiratory 18 16 20 Rate Blood Pressure 131/53 H 155/62 H [Left Brachial artery] O2 Saturation 94 96 96 09/28/21 09/28/21 09/28/21 07:19 12:52 16:25 Temperature 36.5 C Heart Rate [ 57 L 53 L 55 L Monitoring electrodes] Respiratory 18 19 18 Rate Blood Pressure 136/55 H 129/53 L 145/57 H [Left Brachial artery] O2 Saturation 94 95 96 Oxygen O2 Source Room air I&O (Last 24 Hrs): Intake and Output Totals x24h 09/26/21 09/27/21 09/28/21 23:59 23:59 23:59 Intake Total 84122 71092 03691 Output Total 0177571 6623 32767 Balance -185 2560 -1530 General: Alert, Cooperative, No acute distress HEENT: Mucous membr. moist/pink Neck: Supple Neuro: Alert, Non Focal, Oriented Times 3 Cardiovascular: Regular rate, Normal S1, Normal S2 Respiratory: No respiratory distress, Breath sounds nml Abdomen: Normal bowel sounds, Other (Mild suprapubic tenderness) Genitourinary: Other (Rivera catheter/ draining pinkish urine, on continuous bladder irrigation) Extremities: No edema - Results Results: Laboratory Results WBC 6.1 x10^3/uL (4.8-10.8) 09/28/21 04:55 RBC 4.20 10^6/uL (4.70-6.10) L 09/28/21 04:55 Hgb 9.0 g/dL (14.0-18.0) L 09/28/21 04:55 Hct 31.4 % (42.0-52.0) L 09/28/21 04:55 MCV 74.8 fL (80.0-94.0) L 09/28/21 04:55 MCH 21.4 pg (27.0-31.0) L 09/28/21 04:55 MCHC 28.7 g/dL (32.0-36.0) L 09/28/21 04:55 RDW 22.8 % (12.0-15.0) H 09/28/21 04:55 Plt Count 175 10^3/uL (130-450) 09/28/21 04:55 MPV 10.8 fL (7.4-11.4) 09/28/21 04:55 Reticulocyte % (Auto) 1.16 % (0.5-2.3) 09/23/21 04:58 Neut # (Auto) 4.3 10^3/uL (1.5-6.6) 09/28/21 04:55 Lymph # (Auto) 0.9 10^3/uL (1.5-3.5) L 09/28/21 04:55 [place] # (Auto) 0.6 10^3/uL (0.0-1.0) 09/28/21 04:55 Eos # (Auto) 0.3 10^3/uL (0.0-0.7) 09/28/21 04:55 Baso # (Auto) 0.0 10^3/uL (0.0-0.1) 09/28/21 04:55 Absolute Nucleated RBC 0.00 x10^3/uL 09/28/21 04:55 Nucleated RBC % 0.0 /100WBC 09/28/21 04:55 Manual Slide Review Indicated 09/28/21 04:55 WBC Morphology NORMAL APPEARANCE (NORMAL) 09/28/21 04:55 Platelet Estimate NORMAL (130-450,000) (NORMAL) 09/28/21 04:55 Platelet Morphology NORMAL APPEARANCE (NORMAL) 09/28/21 04:55 RBC Morph Micro Appear 2+ ANISOCYTOSIS (NORMAL) 2+ HYPOCHROMASIA (NORMAL) 09/28/21 04:55 RBC Morph Micro Appear 2+ ANISOCYTOSIS (NORMAL) 2+ HYPOCHROMASIA (NORMAL) 09/28/21 04:55 Absolute Retic 0.046 10^6/uL (0.020-0.110) 09/23/21 04:58 PT 14.3 secs (9.9-12.6) H 09/22/21 13:56 INR 1.3 (0.8-1.2) H 09/22/21 13:56 APTT 28.7 secs (24.9-33.3) 09/22/21 13:56 Sodium 142 mmol/L (135-145) 09/28/21 04:55 Potassium 3.7 mmol/L (3.5-5.0) 09/28/21 04:55 Chloride 108 mmol/L (101-111) 09/28/21 04:55 Carbon Dioxide 27 mmol/L (21-32) 09/28/21 04:55 Anion Gap 7.0 (6-13) 09/28/21 04:55 BUN 16 mg/dL (6-20) 09/28/21 04:55 Creatinine 1.1 mg/dL (0.6-1.2) 09/28/21 04:55 Estimated GFR (MDRD) 66 (>89) L 09/28/21 04:55 Glucose 97 mg/dL (70-100) 09/28/21 04:55 Calcium 8.5 mg/dL (8.5-10.3) 09/28/21 04:55 Iron 20 ug/dL (45-182) L 09/23/21 04:58 TIBC 370 ug/dL (250-450) 09/23/21 04:58 % Saturation 5 % (20-50) L 09/23/21 04:58 Transferrin 264 mg/dL (180-329) 09/23/21 04:58 Ferritin 15.2 ng/mL (23.9-336.2) L 09/23/21 04:58 Total Bilirubin 0.3 mg/dL (0.2-1.0) 09/22/21 13:56 AST 28 IU/L (10-42) 09/22/21 13:56 ALT 29 IU/L (10-60) 09/22/21 13:56 Alkaline Phosphatase 72 IU/L (42-121) 09/22/21 13:56 Lactate Dehydrogenase 129 IU/L (91-225) 09/23/21 04:58 Troponin I High Sens 171.6 ng/L (2.3-19.7) H* 09/24/21 20:01 Total Protein 6.8 g/dL (6.7-8.2) 09/22/21 13:56 Albumin 3.0 g/dL (3.2-5.5) L 09/22/21 13:56 Globulin 3.8 g/dL (2.1-4.2) 09/22/21 13:56 Albumin/Globulin Ratio 0.8 (1.0-2.2) L 09/22/21 13:56 Vitamin B12 437 pg/mL (180-914) 09/23/21 04:58 Urine Color RED/BLOODY 09/22/21 13:18 Urine Clarity BLOODY (CLEAR) 09/22/21 13:18 Urine pH 6.5 PH (5.0-7.5) 09/22/21 13:18 Ur Specific [place] 1.020 (1.002-1.030) 09/22/21 13:18 Urine Protein >=300 mg/dL (NEGATIVE) H 09/22/21 13:18 Urine Glucose (UA) NEGATIVE mg/dL (NEGATIVE) 09/22/21 13:18 Urine Ketones NEGATIVE mg/dL (NEGATIVE) 09/22/21 13:18 Urine Occult Blood LARGE (NEGATIVE) H 09/22/21 13:18 Urine Nitrite NEGATIVE (NEGATIVE) 09/22/21 13:18 Urine Bilirubin NEGATIVE (NEGATIVE) 09/22/21 13:18 Urine Urobilinogen 0.2 (NORMAL) E.U./dL (NORMAL) 09/22/21 13:18 Ur Leukocyte Esterase SMALL (NEGATIVE) H 09/22/21 13:18 Urine RBC TNTC /HPF (0-5) H 09/22/21 13:18 Urine WBC 0-3 /HPF (0-3) 09/22/21 13:18 Ur Squamous Epith Cells NONE SEEN (<= Few) 09/22/21 13:18 Urine Bacteria None Seen /HPF (None Seen) 09/22/21 13:18 Ur Microscopic Review INDICATED 09/22/21 13:18 Urine Culture Comments INDICATED 09/22/21 13:18 Nasal Adenovirus (PCR) NOT DETECTED 09/22/21 14:52 Nasal B. parapertussis DNA (PCR) NOT DETECTED 09/22/21 14:52 Nasal Coronavir 229E PCR NOT DETECTED 09/22/21 14:52 Nasal Coronavir HKU1 PCR NOT DETECTED 09/22/21 14:52 Nasal Coronavir NL63 PCR NOT DETECTED 09/22/21 14:52 Nasal Coronavir OC43 PCR NOT DETECTED 09/22/21 14:52 Nasal Enterovir/Rhinovir PCR NOT DETECTED 09/22/21 14:52 Nasal Influenza B PCR NOT DETECTED 09/22/21 14:52 Nasal Influenza A PCR NOT DETECTED 09/22/21 14:52 Nasal Parainfluen 1 PCR NOT DETECTED 09/22/21 14:52 Nasal Parainfluen 2 PCR NOT DETECTED 09/22/21 14:52 Nasal Parainfluen 3 PCR NOT DETECTED 09/22/21 14:52 Nasal Parainfluen 4 PCR NOT DETECTED 09/22/21 14:52 Nasal RSV (PCR) NOT DETECTED 09/22/21 14:52 Nasal B.pertussis DNA PCR NOT DETECTED 09/22/21 14:52 Nasal C.pneumoniae (PCR) NOT DETECTED 09/22/21 14:52 [place] Human Metapneumo PCR NOT DETECTED 09/22/21 14:52 Nasal M.pneumoniae (PCR) NOT DETECTED 09/22/21 14:52 Nasal SARS-CoV-2 (PCR) NOT DETECTED 09/22/21 14:52 Blood Type A POSITIVE 09/22/21 15:00 Blood Type Recheck A POSITIVE 09/22/21 13:56 Antibody Screen NEGATIVE 09/22/21 15:00 Crossmatch IS Only See Detail 09/22/21 15:00 Sepsis Event Note (H) - Evaluation Current Stage of Sepsis: Ruled out ABX Reporting Has patient been on IV antibiotics over the past 48 hours?: Yes
[2021-09-28] MEDS: ATORVASTATIN 40 MG TABLET PO SCH (20:13)
[2021-09-28] MEDS: BACLOFEN 10 MG TABLET PO PRN (20:13)
[2021-09-28] MEDS: NITROFURANTOIN MACRO 100 MG CAPSULE PO SCH (21:16)
[2021-09-28] MEDS: PHENAZOPYRIDINE 100 MG TABLET PO SCH (22:56)
[2021-09-29] MEDS: SODIUM CHLORIDE FLUSH 0.9% 10 ML SYRINGE IVP SCH ×3 (02:25→18:50)
[2021-09-29] MEDS: BACLOFEN 10 MG TABLET PO PRN (06:30)
[2021-09-29] MEDS: PHENAZOPYRIDINE 100 MG TABLET PO SCH ×3 (06:30→20:29)
[2021-09-29] MEDS: FERROUS GLUCONATE 324 MG TABLET PO SCH (08:26)
[2021-09-29] MEDS: SACCHAROMYCES BOULARDII 250 MG CAPSULE PO SCH ×2 (08:26→20:29)
[2021-09-29] MEDS: NITROFURANTOIN MACRO 100 MG CAPSULE PO SCH ×2 (08:26→20:29)
[2021-09-29] MEDS: OXYBUTYNIN 5MG TABLET PO SCH ×2 (08:26→20:32)
[2021-09-29] MEDS: TAMSULOSIN 0.4 MG CAPSULE PO SCH (08:26)
[2021-09-29] MEDS: polyethylene glycoL 3350 17 GM PACKET PO SCH (08:27)
[2021-09-29 08:49] LABS: BASOPHILS % (AUTO) 0.9 %; EOSINOPHILS # (AUTO) 0.3 10^3/uL (0.0-0.7); HCT - HEMATOCRIT 31.4 % (42.0-52.0); LYMPHOCYTES # (AUTO) 0.8 10^3/uL (1.5-3.5); LYMPHOCYTES % (AUTO) 17.9 %; MEAN CORPUSCULAR HEMOGLOBIN 21.5 pg (27.0-31.0); MEAN CORPUSCULAR HGB CONC 28.7 g/dL (32.0-36.0); MEAN CORPUSCULAR VOLUME 75.1 fL (80.0-94.0); MEAN PLATELET VOLUME 10.1 fL (7.4-11.4); MONOCYTES # (AUTO) 0.5 10^3/uL (0.0-1.0); MONOCYTES % (AUTO) 10.6 %; NEUTROPHILS % (AUTO) 63.4 %; PLT - PLATELET COUNT 161 10^3/uL (130-450); RED BLOOD COUNT 4.18 10^6/uL (4.70-6.10); WHITE BLOOD COUNT 4.7 x10^3/uL (4.8-10.8)
[2021-09-29 08:57] LABS: CALCIUM 8.1 mg/dL (8.5-10.3); POTASSIUM 3.8 mmol/L (3.5-5.0)
[2021-09-29 13:00] LABS: HCT - HEMATOCRIT 38.2 % (42.0-52.0); HGB - HEMOGLOBIN 10.8 g/dL (14.0-18.0)
--- NOTE | 2021-09-29 14:50 | PROVIDER PROGRESS NOTE ---
Assessment/Plan - Problem List (1) Hemorrhagic cystitis Assessment/Plan: 09/29, HGB is elevated to 10.8 from 9.0 on today, but Irrigation fluid still show slight redness and small blood clots but it is improved comparing with yesterday. continue irrigation now, continue treat with PO antibiotics Macrobid. we called at the admission, unfortunately they did not accept pt until we discharge pt and followup with their urologist as out-pt. pt had nearly 20 days at for this problem before. (2) Bradycardia Impression: Stable. Heart rate has been 50s-60s overnight. No sinus pause noted overnight. Denies chest pain, dizziness or shortness of breath. Will continue to hold the home Coreg and continue telemetry. (3) Acute blood loss anemia Impression: improved, will continue to monitor. Continue iron supplementation. (4) Urinary retention Impression: continue De Jesus now due to still hemorrhagic cystitis although it is improved. Previous admission required nearly 20 days for this issue to resolve, today is day 4. Continues to require irrigation as he is still passing clots with dark red output, alternating with more pink output once the clots have passed. Will plan to remove once the irrigation solution clears and hemoglobin has remained stable but for now the de jesus is required for continuous bladder irrigation. His home dose of Flomax has been resumed. (5) History of non-ST elevation myocardial infarction (NSTEMI) Impression: Pt was recently diagnosed with NSTEMI at , likely has demand ischemia from hematuria and anemia. He is currently taking his statin but the other cardiac meds have been held due to his bradycardia and hypotension, hematuria. Will continue with telemetry and vitals monitoring. He denies chest pain and palpitations. Will need to follow up with his outpatient instrument lens generator after discharge. (6) Chronic kidney disease (CKD), stage III (moderate) Impression: Stable. Creatinine currently 1.0. (7) Hypotension Impression: resolved now. BPs have been 110-130s/50-60s. He has been asymptomatic, denying chest pain, palpitations, dizziness, light-headedness and dyspnea. He has been able to get up to the bathroom without issue. Will continue to monitor for now. Is not currently receiving any cardiac meds other than Lipitor. (8) UTI (urinary tract infection) Impression: pt was treated with IV antibiotics, now antibiotics is switched to PO, macrobid. The UTI is likely related to his hematuria and retention. Will continue IV abx and probiotics. (9) Elevated troponin Impression: Stable. Elevated troponin on admission, at last check was trending down. Denies chest pain and is hemodynamically stable with low normal BP and bradycardia. Recent echo performed revealed EF 45-50%, with regional wall motion abnormality. He was recently diagnosed with NSTEMI at , likely had demand ischemia from hematuria and anemia. - Current Meds Current Meds: Current Medications Generic Name Dose Route Start Last Admin Trade Name Freq PRN Reason Stop Dose Admin Acetaminophen 650 mg 09/22/21 21:40 09/28/21 22:56 Acetaminophen 325 Mg Tablet PO 650 mg Q4HR PRN Administration Pain 1 to 4 Atorvastatin Calcium 40 mg 09/23/21 21:00 09/28/21 20:13 Atorvastatin 40 Mg Tablet PO 40 mg QPM SONAM Administration Baclofen 10 mg 09/23/21 00:21 09/29/21 06:30 Baclofen 10 Mg Tablet PO 10 mg TID PRN Administration Bladder Spasms Ferrous Gluconate 324 mg 09/23/21 15:00 09/29/21 08:26 Ferrous Gluconate 324 Mg Tablet PO 324 mg DAILYWM SONAM Administration Morphine Sulfate 2 mg 09/23/21 06:52 09/26/21 01:45 Morphine 2 Mg/Ml Carpuject IVP 2 mg Q2HR PRN Administration PAIN Nitrofurantoin 100 mg 09/28/21 21:00 09/29/21 08:26 Nitrofurantoin Macro 100 Mg Capsule PO 100 mg BID SONAM Administration Oxybutynin Chloride 5 mg 09/23/21 09:00 09/29/21 08:26 Oxybutynin 5mg Tablet PO 5 mg BID SONAM Administration Oxycodone HCl 5 mg 09/22/21 21:40 09/28/21 22:57 Oxycodone 5 Mg Tablet PO 5 mg Q4HR PRN Administration Pain 5 to 7 Phenazopyridine HCl 100 mg 09/28/21 22:00 09/29/21 14:06 Phenazopyridine 100 Mg Tablet PO Not Given TID SONAM Polyethylene Glycol 17 gm 09/24/21 09:00 09/29/21 08:27 Polyethylene Glycol 3350 17 Gm Packet PO Not Given DAILY [facility] Saccharomyces Boulardii 250 mg 09/24/21 08:00 09/29/21 08:26 Saccharomyces Boulardii 250 Mg Capsule PO 250 mg BIDWM SONAM Administration Sodium Chloride 10 ml 09/23/21 01:00 09/29/21 08:27 Sodium Chloride Flush 0.9% 10 Ml Syringe IVP 10 ml 0100,0900,1700 SONAM Administration Tamsulosin HCl 0.4 mg 09/23/21 09:00 09/29/21 08:26 Tamsulosin 0.4 Mg Capsule PO 0.4 mg DAILY SONAM Administration - Lab Result Fish Bone Diagrams: 09/29/21 12:53 09/29/21 08:42 - Additional Planning My Orders: My Active Orders 09/29/21 20:30 H&H [HEMOGLOBIN AND HEMATOCRIT] [HEME] Q8H 09/30/21 04:30 H&H [HEMOGLOBIN AND HEMATOCRIT] [HEME] Q8H 09/30/21 05:00 BMP - BASIC METABOLIC PANEL [CHEM] DAILYLAB CBC - COMP BLD CT W/AUTO DIFF [HEME] DAILYLAB 09/30/21 09:00 lisinopriL [Zestril] 10 mg PO DAILY 09/30/21 12:30 H&H [HEMOGLOBIN AND HEMATOCRIT] [HEME] Q8H 09/30/21 20:30 H&H [HEMOGLOBIN AND HEMATOCRIT] [HEME] Q8H 10/01/21 05:00 BMP - BASIC METABOLIC PANEL [CHEM] DAILYLAB CBC - COMP BLD CT W/AUTO DIFF [HEME] DAILYLAB 10/02/21 05:00 BMP - BASIC METABOLIC PANEL [CHEM] DAILYLAB CBC - COMP BLD CT W/AUTO DIFF [HEME] DAILYLAB 10/03/21 05:00 BMP - BASIC METABOLIC PANEL [CHEM] DAILYLAB CBC - COMP BLD CT W/AUTO DIFF [HEME] DAILYLAB 10/04/21 05:00 BMP - BASIC METABOLIC PANEL [CHEM] DAILYLAB CBC - COMP BLD CT W/AUTO DIFF [HEME] DAILYLAB 10/05/21 05:00 BMP - BASIC METABOLIC PANEL [CHEM] DAILYLAB CBC - COMP BLD CT W/AUTO DIFF [HEME] DAILYLAB 10/06/21 05:00 BMP - BASIC METABOLIC PANEL [CHEM] DAILYLAB CBC - COMP BLD CT W/AUTO DIFF [HEME] DAILYLAB 10/07/21 05:00 BMP - BASIC METABOLIC PANEL [CHEM] DAILYLAB CBC - COMP BLD CT W/AUTO DIFF [HEME] DAILYLAB 10/08/21 05:00 BMP - BASIC METABOLIC PANEL [CHEM] DAILYLAB CBC - COMP BLD CT W/AUTO DIFF [HEME] DAILYLAB 10/09/21 05:00 BMP - BASIC METABOLIC PANEL [CHEM] DAILYLAB CBC - COMP BLD CT W/AUTO DIFF [HEME] DAILYLAB Subjective - Subjective Patient Reports: Resting Comfortably Objective Vital Signs: Vital Signs - 24 hr 09/28/21 09/28/21 09/29/21 16:25 19:49 00:30 Temperature 36.6 C 36.9 C Heart Rate [ 54 L Brachial] Heart Rate [ 55 L 60 54 L Monitoring electrodes] Respiratory 18 18 18 Rate Blood Pressure 145/57 H 132/57 H 138/50 H [Left Brachial artery] O2 Saturation 96 99 96 09/29/21 09/29/21 09/29/21 06:16 08:25 14:06 Temperature 36.5 C 36.2 C L Heart Rate [ 79 Brachial] Heart Rate [ 53 L 54 L Monitoring electrodes] Respiratory 18 16 Rate Blood Pressure 149/58 H 139/56 H 129/99 H [Left Brachial artery] O2 Saturation 95 95 Oxygen O2 Source Room air I&O (Last 24 Hrs): Intake and Output Totals x24h 09/27/21 09/28/21 09/29/21 23:59 23:59 23:59 Intake Total 91090 03155 8440 Output Total 8350 25579 9982 Balance 2638 -9011 -8503 General: Alert, Oriented x3, No acute distress HEENT: Atraumatic Neck: Supple Lymphatic: no adenopathy Neuro: Alert, Non Focal, Oriented Times 3 Cardiovascular: Regular rate, Normal S1, Normal S2 Respiratory: Chest non-tender, No respiratory distress Abdomen: Normal bowel sounds, Soft Extremities: Normal pulses - Results Results: Laboratory Results WBC 4.7 x10^3/uL (4.8-10.8) L 09/29/21 08:42 RBC 4.18 10^6/uL (4.70-6.10) L 09/29/21 08:42 Hgb 10.8 g/dL (14.0-18.0) L 09/29/21 12:53 Hct 38.2 % (42.0-52.0) L 09/29/21 12:53 MCV 75.1 fL (80.0-94.0) L 09/29/21 08:42 MCH 21.5 pg (27.0-31.0) L 09/29/21 08:42 MCHC 28.7 g/dL (32.0-36.0) L 09/29/21 08:42 RDW 23.0 % (12.0-15.0) H 09/29/21 08:42 Plt Count 161 10^3/uL (130-450) 09/29/21 08:42 MPV 10.1 fL (7.4-11.4) 09/29/21 08:42 Reticulocyte % (Auto) 1.16 % (0.5-2.3) 09/23/21 04:58 Neut # (Auto) 3.0 10^3/uL (1.5-6.6) 09/29/21 08:42 Lymph # (Auto) 0.8 10^3/uL (1.5-3.5) L 09/29/21 08:42 [place] # (Auto) 0.5 10^3/uL (0.0-1.0) 09/29/21 08:42 Eos # (Auto) 0.3 10^3/uL (0.0-0.7) 09/29/21 08:42 Baso # (Auto) 0.0 10^3/uL (0.0-0.1) 09/29/21 08:42 Absolute Nucleated RBC 0.00 x10^3/uL 09/29/21 08:42 Nucleated RBC % 0.0 /100WBC 09/29/21 08:42 Manual Slide Review Indicated 09/28/21 04:55 WBC Morphology NORMAL APPEARANCE (NORMAL) 09/28/21 04:55 Platelet Estimate NORMAL (130-450,000) (NORMAL) 09/28/21 04:55 Platelet Morphology NORMAL APPEARANCE (NORMAL) 09/28/21 04:55 RBC Morph Micro Appear 2+ ANISOCYTOSIS (NORMAL) 2+ HYPOCHROMASIA (NORMAL) 09/28/21 04:55 RBC Morph Micro Appear 2+ ANISOCYTOSIS (NORMAL) 2+ HYPOCHROMASIA (NORMAL) 09/28/21 04:55 Absolute Retic 0.046 10^6/uL (0.020-0.110) 09/23/21 04:58 PT 14.3 secs (9.9-12.6) H 09/22/21 13:56 INR 1.3 (0.8-1.2) H 09/22/21 13:56 APTT 28.7 secs (24.9-33.3) 09/22/21 13:56 Sodium 136 mmol/L (135-145) 09/29/21 08:42 Potassium 3.8 mmol/L (3.5-5.0) 09/29/21 08:42 Chloride 102 mmol/L (101-111) 09/29/21 08:42 Carbon Dioxide 26 mmol/L (21-32) 09/29/21 08:42 Anion Gap 8.0 (6-13) 09/29/21 08:42 BUN 17 mg/dL (6-20) 09/29/21 08:42 Creatinine 1.0 mg/dL (0.6-1.2) 09/29/21 08:42 Estimated GFR (MDRD) 73 (>89) L 09/29/21 08:42 Glucose 110 mg/dL (70-100) H 09/29/21 08:42 Calcium 8.1 mg/dL (8.5-10.3) L 09/29/21 08:42 Iron 20 ug/dL (45-182) L 09/23/21 04:58 TIBC 370 ug/dL (250-450) 09/23/21 04:58 % Saturation 5 % (20-50) L 09/23/21 04:58 Transferrin 264 mg/dL (180-329) 09/23/21 04:58 Ferritin 15.2 ng/mL (23.9-336.2) L 09/23/21 04:58 Total Bilirubin 0.3 mg/dL (0.2-1.0) 09/22/21 13:56 AST 28 IU/L (10-42) 09/22/21 13:56 ALT 29 IU/L (10-60) 09/22/21 13:56 Alkaline Phosphatase 72 IU/L (42-121) 09/22/21 13:56 Lactate Dehydrogenase 129 IU/L (91-225) 09/23/21 04:58 Troponin I High Sens 171.6 ng/L (2.3-19.7) H* 09/24/21 20:01 Total Protein 6.8 g/dL (6.7-8.2) 09/22/21 13:56 Albumin 3.0 g/dL (3.2-5.5) L 09/22/21 13:56 Globulin 3.8 g/dL (2.1-4.2) 09/22/21 13:56 Albumin/Globulin Ratio 0.8 (1.0-2.2) L 09/22/21 13:56 Vitamin B12 437 pg/mL (180-914) 09/23/21 04:58 Urine Color RED/BLOODY 09/22/21 13:18 Urine Clarity BLOODY (CLEAR) 09/22/21 13:18 Urine pH 6.5 PH (5.0-7.5) 09/22/21 13:18 Ur Specific [place] 1.020 (1.002-1.030) 09/22/21 13:18 Urine Protein >=300 mg/dL (NEGATIVE) H 09/22/21 13:18 Urine Glucose (UA) NEGATIVE mg/dL (NEGATIVE) 09/22/21 13:18 Urine Ketones NEGATIVE mg/dL (NEGATIVE) 09/22/21 13:18 Urine Occult Blood LARGE (NEGATIVE) H 09/22/21 13:18 Urine Nitrite NEGATIVE (NEGATIVE) 09/22/21 13:18 Urine Bilirubin NEGATIVE (NEGATIVE) 09/22/21 13:18 Urine Urobilinogen 0.2 (NORMAL) E.U./dL (NORMAL) 09/22/21 13:18 Ur Leukocyte Esterase SMALL (NEGATIVE) H 09/22/21 13:18 Urine RBC TNTC /HPF (0-5) H 09/22/21 13:18 Urine WBC 0-3 /HPF (0-3) 09/22/21 13:18 Ur Squamous Epith Cells NONE SEEN (<= Few) 09/22/21 13:18 Urine Bacteria None Seen /HPF (None Seen) 09/22/21 13:18 Ur Microscopic Review INDICATED 09/22/21 13:18 Urine Culture Comments INDICATED 09/22/21 13:18 Nasal Adenovirus (PCR) NOT DETECTED 09/22/21 14:52 Nasal B. parapertussis DNA (PCR) NOT DETECTED 09/22/21 14:52 Nasal Coronavir 229E PCR NOT DETECTED 09/22/21 14:52 Nasal Coronavir HKU1 PCR NOT DETECTED 09/22/21 14:52 Nasal Coronavir NL63 PCR NOT DETECTED 09/22/21 14:52 Nasal Coronavir OC43 PCR NOT DETECTED 09/22/21 14:52 Nasal Enterovir/Rhinovir PCR NOT DETECTED 09/22/21 14:52 Nasal Influenza B PCR NOT DETECTED 09/22/21 14:52 Nasal Influenza A PCR NOT DETECTED 09/22/21 14:52 Nasal Parainfluen 1 PCR NOT DETECTED 09/22/21 14:52 Nasal Parainfluen 2 PCR NOT DETECTED 09/22/21 14:52 Nasal Parainfluen 3 PCR NOT DETECTED 09/22/21 14:52 Nasal Parainfluen 4 PCR NOT DETECTED 09/22/21 14:52 Nasal RSV (PCR) NOT DETECTED 09/22/21 14:52 Nasal B.pertussis DNA PCR NOT DETECTED 09/22/21 14:52 Nasal C.pneumoniae (PCR) NOT DETECTED 09/22/21 14:52 [place] Human Metapneumo PCR NOT DETECTED 09/22/21 14:52 Nasal M.pneumoniae (PCR) NOT DETECTED 09/22/21 14:52 Nasal SARS-CoV-2 (PCR) NOT DETECTED 09/22/21 14:52 Blood Type A POSITIVE 09/22/21 15:00 Blood Type Recheck A POSITIVE 09/22/21 13:56 Antibody Screen NEGATIVE 09/22/21 15:00 Crossmatch IS Only See Detail 09/22/21 15:00 Sepsis Event Note (H) - Evaluation Current Stage of Sepsis: Ruled out ABX Reporting Has patient been on IV antibiotics over the past 48 hours?: Yes Current Medications - Current Medications Current Medications: Active Medications Acetaminophen (Acetaminophen 325 Mg Tablet) 650 mg PO Q4HR PRN PRN Reason: Pain 1 to 4 Last Admin: 09/28/21 22:56 Dose: 650 mg Atorvastatin Calcium (Atorvastatin 40 Mg Tablet) 40 mg PO QPM SONAM Last Admin: 09/28/21 20:13 Dose: 40 mg Baclofen (Baclofen 10 Mg Tablet) 10 mg PO TID PRN PRN Reason: Bladder Spasms Last Admin: 09/29/21 06:30 Dose: 10 mg Ferrous Gluconate (Ferrous Gluconate 324 Mg Tablet) 324 mg PO DAILYWM SONAM Last Admin: 09/29/21 08:26 Dose: 324 mg Lisinopril (Lisinopril 5 Mg Tablet) 10 mg PO DAILY [facility] Morphine Sulfate (Morphine 2 Mg/Ml Carpuject) 2 mg IVP Q2HR PRN PRN Reason: PAIN Last Admin: 09/26/21 01:45 Dose: 2 mg Nitrofurantoin (Nitrofurantoin Macro 100 Mg Capsule) 100 mg PO BID [facility] Last Admin: 09/29/21 08:26 Dose: 100 mg Ondansetron HCl (Ondansetron Odt 4 Mg Tablet) 4 mg TL Q6HR PRN PRN Reason: Nausea / Vomiting Ondansetron HCl (Ondansetron 4 Mg/2 Ml Vial) 4 mg IVP Q6HR PRN PRN Reason: Nausea / Vomiting Oxybutynin Chloride (Oxybutynin 5mg Tablet) 5 mg PO BID [facility] Last Admin: 09/29/21 08:26 Dose: 5 mg Oxycodone HCl (Oxycodone 5 Mg Tablet) 5 mg PO Q4HR PRN PRN Reason: Pain 5 to 7 Last Admin: 09/28/21 22:57 Dose: 5 mg Phenazopyridine HCl (Phenazopyridine 100 Mg Tablet) 100 mg PO TID [facility] Last Admin: 09/29/21 14:06 Dose: Not Given Polyethylene Glycol (Polyethylene Glycol 3350 17 Gm Packet) 17 gm PO DAILY [facility] Last Admin: 09/29/21 08:27 Dose: Not Given Saccharomyces Boulardii (Saccharomyces Boulardii 250 Mg Capsule) 250 mg PO BIDWM [facility] Last Admin: 09/29/21 08:26 Dose: 250 mg Sodium Chloride (Sodium Chloride Flush 0.9% 10 Ml Syringe) 10 ml IVP PRN PRN PRN Reason: NEEDED PER PROVIDER ORDERS Sodium Chloride (Sodium Chloride Flush 0.9% 10 Ml Syringe) 10 ml IVP 0100,0900,1700 [facility] Last Admin: 09/29/21 08:27 Dose: 10 ml Tamsulosin HCl (Tamsulosin 0.4 Mg Capsule) 0.4 mg PO DAILY [facility] Last Admin: 09/29/21 08:26 Dose: 0.4 mg Aspirin Chewable [St Rodolfo Aspirin] 81 mg PO DAILY 04/24/19 lisinopriL [Prinivil] 10 mg PO DAILY 04/24/19 Acetaminophen 500 mg PO DAILY PRN 05/07/19 Amiodarone [Pacerone] 100 mg PO DAILY 05/07/19 Carvedilol [Coreg] 12.5 mg PO BID 05/07/19 Rosuvastatin Calcium [Crestor] 40 mg PO DAILY 05/07/19
[2021-09-29] MEDS: ATORVASTATIN 40 MG TABLET PO SCH (20:29)
[2021-09-29] MEDS: oxyCODONE 5 MG TABLET PO PRN (20:30)
[2021-09-29] MEDS: ACETAMINOPHEN 325 MG TABLET PO PRN (20:30)
[2021-09-29 20:31] LABS: HCT - HEMATOCRIT 32.6 % (42.0-52.0); HGB - HEMOGLOBIN 9.3 g/dL (14.0-18.0)
[2021-09-30] MEDS: ACETAMINOPHEN 325 MG TABLET PO PRN ×2 (00:31→06:07)
[2021-09-30] MEDS: oxyCODONE 5 MG TABLET PO PRN ×2 (00:31→06:07)
[2021-09-30] MEDS: SODIUM CHLORIDE FLUSH 0.9% 10 ML SYRINGE IVP SCH ×3 (00:32→17:30)
[2021-09-30 05:37] LABS: BASOPHILS % (AUTO) 0.6 %; EOSINOPHILS # (AUTO) 0.4 10^3/uL (0.0-0.7); EOSINOPHILS % (AUTO) 7.1 %; HCT - HEMATOCRIT 31.6 % (42.0-52.0); HGB - HEMOGLOBIN 9.1 g/dL (14.0-18.0); LYMPHOCYTES # (AUTO) 0.9 10^3/uL (1.5-3.5); LYMPHOCYTES % (AUTO) 17.2 %; MEAN CORPUSCULAR HEMOGLOBIN 21.6 pg (27.0-31.0); MEAN CORPUSCULAR HGB CONC 28.8 g/dL (32.0-36.0); MEAN CORPUSCULAR VOLUME 74.9 fL (80.0-94.0); MEAN PLATELET VOLUME 9.7 fL (7.4-11.4); MONOCYTES # (AUTO) 0.6 10^3/uL (0.0-1.0); MONOCYTES % (AUTO) 11.1 %; NEUTROPHILS # (AUTO) 3.3 10^3/uL (1.5-6.6); NEUTROPHILS % (AUTO) 63.6 %; PLT - PLATELET COUNT 158 10^3/uL (130-450); RED BLOOD COUNT 4.22 10^6/uL (4.70-6.10); RED CELL DISTRIBUTION WIDTH 23.3 % (12.0-15.0); WHITE BLOOD COUNT 5.2 x10^3/uL (4.8-10.8)
[2021-09-30 05:40] LABS: SLIDE REVIEW? Indicated
[2021-09-30 05:45] LABS: CALCIUM 8.3 mg/dL (8.5-10.3); CREATININE 1.1 mg/dL (0.6-1.2); POTASSIUM 3.6 mmol/L (3.5-5.0)
[2021-09-30 05:59] LABS: PLATELET ESTIMATE, MANUAL NORMAL (130-450,000) (NORMAL); PLATELET MORPHOLOGY NORMAL APPEARANCE (NORMAL); WBC MORPHOLOGY (MULTIPLE) NORMAL APPEARANCE (NORMAL)
[2021-09-30] MEDS: PHENAZOPYRIDINE 100 MG TABLET PO SCH ×3 (06:07→22:29)
[2021-09-30] MEDS: FERROUS GLUCONATE 324 MG TABLET PO SCH (09:13)
[2021-09-30] MEDS: SACCHAROMYCES BOULARDII 250 MG CAPSULE PO SCH ×2 (09:13→17:30)
[2021-09-30] MEDS: OXYBUTYNIN 5MG TABLET PO SCH ×2 (09:13→22:29)
[2021-09-30] MEDS: TAMSULOSIN 0.4 MG CAPSULE PO SCH (09:13)
[2021-09-30] MEDS: NITROFURANTOIN MACRO 100 MG CAPSULE PO SCH ×2 (09:13→22:28)
[2021-09-30] MEDS: polyethylene glycoL 3350 17 GM PACKET PO SCH (09:14)
[2021-09-30] MEDS: lisinopriL 5 MG TABLET PO SCH (09:14)
[2021-09-30 12:57] LABS: HCT - HEMATOCRIT 32.4 % (42.0-52.0); HGB - HEMOGLOBIN 9.2 g/dL (14.0-18.0)
--- NOTE | 2021-09-30 14:59 | PROVIDER PROGRESS NOTE ---
Assessment/Plan - Problem List (1) Hemorrhagic cystitis Assessment/Plan: 2/2 improved. HGB is stable. pt report he feel better. The color of irrigation fluid from De Jesus is nearly yellow. pt took pyridium now. Discussed the care plan with patient, patient stated he took long time at the to control of his hematuria because of recurrence happened, hope not too fast to pull his De Jesus. but he hope to d/c his de jesus when it is ready for him to be d/c to home. 2, HGB is elevated to 10.8 from 9.0 on today, but Irrigation fluid still show slight redness and small blood clots but it is improved comparing with yesterday. continue irrigation now, continue treat with PO antibiotics Macrobid. we called at the admission, unfortunately they did not accept pt until we discharge pt and followup with their urologist as out-pt. pt had nearly 20 days at for this problem before. (2) Bradycardia Impression: Stable. Heart rate has been 50s-60s overnight. No sinus pause noted overnight. Denies chest pain, dizziness or shortness of breath. Will continue to hold the home Coreg and continue telemetry. (3) Acute blood loss anemia Impression: 2 HGB is stable, continue lab monitor improved, will continue to monitor. Continue iron supplementation. (4) Urinary retention Impression: continue De Jesus now due to still hemorrhagic cystitis although it is improved. Previous admission required nearly 20 days for this issue to resolve, today is day 4. Continues to require irrigation as he is still passing clots with dark red output, alternating with more pink output once the clots have passed. Will plan to remove once the irrigation solution clears and hemoglobin has remained stable but for now the de jesus is required for continuous bladder irrigation. His home dose of Flomax has been resumed. (5) History of non-ST elevation myocardial infarction (NSTEMI) Impression: Pt was recently diagnosed with NSTEMI at , likely has demand ischemia from hematuria and anemia. He is currently taking his statin but the other cardiac meds have been held due to his bradycardia and hypotension, hematuria. Will continue with telemetry and vitals monitoring. He denies chest pain and palpitations. Will need to follow up with his outpatient astrochemist after discharge. (6) Chronic kidney disease (CKD), stage III (moderate) Impression: Stable. Creatinine currently 1.0. (7) Hypotension Impression: resolved now. BPs have been 110-130s/50-60s. He has been asymptomatic, denying chest pain, palpitations, dizziness, light-headedness and dyspnea. He has been able to get up to the bathroom without issue. Will continue to monitor for now. Is not currently receiving any cardiac meds other than Lipitor. (8) UTI (urinary tract infection) Impression: pt was treated with IV antibiotics, now antibiotics is switched to PO, macrobid. The UTI is likely related to his hematuria and retention. Will continue IV abx and probiotics. (9) Elevated troponin Impression: Stable. Elevated troponin on admission, at last check was trending down. Denies chest pain and is hemodynamically stable with low normal BP and bradycardia. Recent echo performed revealed EF 45-50%, with regional wall motion abnormality. He was recently diagnosed with NSTEMI at , likely had demand ischemia from hematuria and anemia. - Current Meds Current Meds: Current Medications Generic Name Dose Route Start Last Admin Trade Name Freq PRN Reason Stop Dose Admin Acetaminophen 650 mg 09/22/21 21:40 09/30/21 06:07 Acetaminophen 325 Mg Tablet PO 650 mg Q4HR PRN Administration Pain 1 to 4 Atorvastatin Calcium 40 mg 09/23/21 21:00 09/29/21 20:29 Atorvastatin 40 Mg Tablet PO 40 mg QPM SONAM Administration Baclofen 10 mg 09/23/21 00:21 09/29/21 06:30 Baclofen 10 Mg Tablet PO 10 mg TID PRN Administration Bladder Spasms Ferrous Gluconate 324 mg 09/23/21 15:00 09/30/21 09:13 Ferrous Gluconate 324 Mg Tablet PO 324 mg DAILYWM SONAM Administration Lisinopril 10 mg 09/30/21 09:00 09/30/21 09:14 Lisinopril 5 Mg Tablet PO 10 mg DAILY SONAM Administration Morphine Sulfate 2 mg 09/23/21 06:52 09/26/21 01:45 Morphine 2 Mg/Ml Carpuject IVP 2 mg Q2HR PRN Administration PAIN Nitrofurantoin 100 mg 09/28/21 21:00 09/30/21 09:13 Nitrofurantoin Macro 100 Mg Capsule PO 100 mg BID SONAM Administration Oxybutynin Chloride 5 mg 09/23/21 09:00 09/30/21 09:13 Oxybutynin 5mg Tablet PO 5 mg BID SONAM Administration Oxycodone HCl 5 mg 09/22/21 21:40 09/30/21 06:07 Oxycodone 5 Mg Tablet PO 5 mg Q4HR PRN Administration Pain 5 to 7 Phenazopyridine HCl 100 mg 09/28/21 22:00 09/30/21 06:07 Phenazopyridine 100 Mg Tablet PO 100 mg TID SONAM Administration Polyethylene Glycol 17 gm 09/24/21 09:00 09/30/21 09:14 Polyethylene Glycol 3350 17 Gm Packet PO Not Given DAILY SONAM Saccharomyces Boulardii 250 mg 09/24/21 08:00 09/30/21 09:13 Saccharomyces Boulardii 250 Mg Capsule PO 250 mg BIDWM SONAM Administration Sodium Chloride 10 ml 09/23/21 01:00 09/30/21 09:13 Sodium Chloride Flush 0.9% 10 Ml Syringe IVP 10 ml 0100,0900,1700 SONAM Administration Tamsulosin HCl 0.4 mg 09/23/21 09:00 09/30/21 09:13 Tamsulosin 0.4 Mg Capsule PO 0.4 mg DAILY SONAM Administration - Lab Result Fish Bone Diagrams: 09/30/21 12:48 09/30/21 05:24 - Additional Planning My Orders: My Active Orders 09/30/21 09:00 lisinopriL [Zestril] 10 mg PO DAILY 09/30/21 20:00 H&H [HEMOGLOBIN AND HEMATOCRIT] [HEME] Timed 10/01/21 05:00 BMP - BASIC METABOLIC PANEL [CHEM] DAILYLAB CBC - COMP BLD CT W/AUTO DIFF [HEME] DAILYLAB 10/02/21 05:00 BMP - BASIC METABOLIC PANEL [CHEM] DAILYLAB CBC - COMP BLD CT W/AUTO DIFF [HEME] DAILYLAB 10/03/21 05:00 BMP - BASIC METABOLIC PANEL [CHEM] DAILYLAB CBC - COMP BLD CT W/AUTO DIFF [HEME] DAILYLAB 10/04/21 05:00 BMP - BASIC METABOLIC PANEL [CHEM] DAILYLAB CBC - COMP BLD CT W/AUTO DIFF [HEME] DAILYLAB 10/05/21 05:00 BMP - BASIC METABOLIC PANEL [CHEM] DAILYLAB CBC - COMP BLD CT W/AUTO DIFF [HEME] DAILYLAB 10/06/21 05:00 BMP - BASIC METABOLIC PANEL [CHEM] DAILYLAB CBC - COMP BLD CT W/AUTO DIFF [HEME] DAILYLAB 10/07/21 05:00 BMP - BASIC METABOLIC PANEL [CHEM] DAILYLAB CBC - COMP BLD CT W/AUTO DIFF [HEME] DAILYLAB 10/08/21 05:00 BMP - BASIC METABOLIC PANEL [CHEM] DAILYLAB CBC - COMP BLD CT W/AUTO DIFF [HEME] DAILYLAB 10/09/21 05:00 BMP - BASIC METABOLIC PANEL [CHEM] DAILYLAB CBC - COMP BLD CT W/AUTO DIFF [HEME] DAILYLAB Subjective - Subjective Patient Reports: Feeling Better, Resting Comfortably Objective Vital Signs: Vital Signs - 24 hr 09/29/21 09/29/21 09/30/21 16:15 20:08 01:00 Temperature 36.6 C 36.6 C Heart Rate [ 74 70 70 Brachial] Heart Rate [ Monitoring electrodes] Respiratory 18 18 18 Rate Blood Pressure 125/64 131/47 H 126/61 [Left Brachial artery] O2 Saturation 96 96 96 09/30/21 09/30/21 09/30/21 05:00 09:00 11:50 Temperature 36.5 C 36.6 C Heart Rate [ 80 Brachial] Heart Rate [ 56 L 56 L Monitoring electrodes] Respiratory 18 16 16 Rate Blood Pressure 140/61 H 106/48 L 134/57 H [Left Brachial artery] O2 Saturation 97 96 97 Oxygen O2 Source Room air I&O (Last 24 Hrs): Intake and Output Totals x24h 09/28/21 09/29/21 09/30/21 23:59 23:59 23:59 Intake Total 04939 43803 6720 Output Total 02962 97134 1247 Balance -6807 -8035 -0265 General: Alert, Oriented x3, No acute distress HEENT: Atraumatic Neck: Supple Lymphatic: no adenopathy Neuro: Alert, Non Focal, Oriented Times 3 Cardiovascular: Regular rate, Normal S1, Normal S2 Respiratory: Chest non-tender, No respiratory distress Abdomen: Normal bowel sounds, Soft Extremities: Normal pulses - Results Results: Laboratory Results WBC 5.2 x10^3/uL (4.8-10.8) 09/30/21 05:24 RBC 4.22 10^6/uL (4.70-6.10) L 09/30/21 05:24 Hgb 9.2 g/dL (14.0-18.0) L 09/30/21 12:48 Hct 32.4 % (42.0-52.0) L 09/30/21 12:48 MCV 74.9 fL (80.0-94.0) L 09/30/21 05:24 MCH 21.6 pg (27.0-31.0) L 09/30/21 05:24 MCHC 28.8 g/dL (32.0-36.0) L 09/30/21 05:24 RDW 23.3 % (12.0-15.0) H 09/30/21 05:24 Plt Count 158 10^3/uL (130-450) 09/30/21 05:24 MPV 9.7 fL (7.4-11.4) 09/30/21 05:24 Reticulocyte % (Auto) 1.16 % (0.5-2.3) 09/23/21 04:58 Neut # (Auto) 3.3 10^3/uL (1.5-6.6) 09/30/21 05:24 Lymph # (Auto) 0.9 10^3/uL (1.5-3.5) L 09/30/21 05:24 [place] # (Auto) 0.6 10^3/uL (0.0-1.0) 09/30/21 05:24 Eos # (Auto) 0.4 10^3/uL (0.0-0.7) 09/30/21 05:24 Baso # (Auto) 0.0 10^3/uL (0.0-0.1) 09/30/21 05:24 Absolute Nucleated RBC 0.00 x10^3/uL 09/30/21 05:24 Nucleated RBC % 0.0 /100WBC 09/30/21 05:24 Manual Slide Review Indicated 09/30/21 05:24 WBC Morphology NORMAL APPEARANCE (NORMAL) 09/30/21 05:24 Platelet Estimate NORMAL (130-450,000) (NORMAL) 09/30/21 05:24 Platelet Morphology NORMAL APPEARANCE (NORMAL) 09/30/21 05:24 RBC Morph Micro Appear 3+ ANISOCYTOSIS (NORMAL) 2+ HYPOCHROMASIA (NORMAL) 09/30/21 05:24 RBC Morph Micro Appear 3+ ANISOCYTOSIS (NORMAL) 2+ HYPOCHROMASIA (NORMAL) 09/30/21 05:24 Absolute Retic 0.046 10^6/uL (0.020-0.110) 09/23/21 04:58 PT 14.3 secs (9.9-12.6) H 09/22/21 13:56 INR 1.3 (0.8-1.2) H 09/22/21 13:56 APTT 28.7 secs (24.9-33.3) 09/22/21 13:56 Sodium 138 mmol/L (135-145) 09/30/21 05:24 Potassium 3.6 mmol/L (3.5-5.0) 09/30/21 05:24 Chloride 104 mmol/L (101-111) 09/30/21 05:24 Carbon Dioxide 25 mmol/L (21-32) 09/30/21 05:24 Anion Gap 9.0 (6-13) 09/30/21 05:24 BUN 20 mg/dL (6-20) 09/30/21 05:24 Creatinine 1.1 mg/dL (0.6-1.2) 09/30/21 05:24 Estimated GFR (MDRD) 66 (>89) L 09/30/21 05:24 Glucose 98 mg/dL (70-100) 09/30/21 05:24 Calcium 8.3 mg/dL (8.5-10.3) L 09/30/21 05:24 Iron 20 ug/dL (45-182) L 09/23/21 04:58 TIBC 370 ug/dL (250-450) 09/23/21 04:58 % Saturation 5 % (20-50) L 09/23/21 04:58 Transferrin 264 mg/dL (180-329) 09/23/21 04:58 Ferritin 15.2 ng/mL (23.9-336.2) L 09/23/21 04:58 Total Bilirubin 0.3 mg/dL (0.2-1.0) 09/22/21 13:56 AST 28 IU/L (10-42) 09/22/21 13:56 ALT 29 IU/L (10-60) 09/22/21 13:56 Alkaline Phosphatase 72 IU/L (42-121) 09/22/21 13:56 Lactate Dehydrogenase 129 IU/L (91-225) 09/23/21 04:58 Troponin I High Sens 171.6 ng/L (2.3-19.7) H* 09/24/21 20:01 Total Protein 6.8 g/dL (6.7-8.2) 09/22/21 13:56 Albumin 3.0 g/dL (3.2-5.5) L 09/22/21 13:56 Globulin 3.8 g/dL (2.1-4.2) 09/22/21 13:56 Albumin/Globulin Ratio 0.8 (1.0-2.2) L 09/22/21 13:56 Vitamin B12 437 pg/mL (180-914) 09/23/21 04:58 Urine Color RED/BLOODY 09/22/21 13:18 Urine Clarity BLOODY (CLEAR) 09/22/21 13:18 Urine pH 6.5 PH (5.0-7.5) 09/22/21 13:18 Ur Specific [place] 1.020 (1.002-1.030) 09/22/21 13:18 Urine Protein >=300 mg/dL (NEGATIVE) H 09/22/21 13:18 Urine Glucose (UA) NEGATIVE mg/dL (NEGATIVE) 09/22/21 13:18 Urine Ketones NEGATIVE mg/dL (NEGATIVE) 09/22/21 13:18 Urine Occult Blood LARGE (NEGATIVE) H 09/22/21 13:18 Urine Nitrite NEGATIVE (NEGATIVE) 09/22/21 13:18 Urine Bilirubin NEGATIVE (NEGATIVE) 09/22/21 13:18 Urine Urobilinogen 0.2 (NORMAL) E.U./dL (NORMAL) 09/22/21 13:18 Ur Leukocyte Esterase SMALL (NEGATIVE) H 09/22/21 13:18 Urine RBC TNTC /HPF (0-5) H 09/22/21 13:18 Urine WBC 0-3 /HPF (0-3) 09/22/21 13:18 Ur Squamous Epith Cells NONE SEEN (<= Few) 09/22/21 13:18 Urine Bacteria None Seen /HPF (None Seen) 09/22/21 13:18 Ur Microscopic Review INDICATED 09/22/21 13:18 Urine Culture Comments INDICATED 09/22/21 13:18 Nasal Adenovirus (PCR) NOT DETECTED 09/22/21 14:52 Nasal B. parapertussis DNA (PCR) NOT DETECTED 09/22/21 14:52 Nasal Coronavir 229E PCR NOT DETECTED 09/22/21 14:52 Nasal Coronavir HKU1 PCR NOT DETECTED 09/22/21 14:52 Nasal Coronavir NL63 PCR NOT DETECTED 09/22/21 14:52 Nasal Coronavir OC43 PCR NOT DETECTED 09/22/21 14:52 Nasal Enterovir/Rhinovir PCR NOT DETECTED 09/22/21 14:52 Nasal Influenza B PCR NOT DETECTED 09/22/21 14:52 Nasal Influenza A PCR NOT DETECTED 09/22/21 14:52 Nasal Parainfluen 1 PCR NOT DETECTED 09/22/21 14:52 Nasal Parainfluen 2 PCR NOT DETECTED 09/22/21 14:52 Nasal Parainfluen 3 PCR NOT DETECTED 09/22/21 14:52 Nasal Parainfluen 4 PCR NOT DETECTED 09/22/21 14:52 Nasal RSV (PCR) NOT DETECTED 09/22/21 14:52 Nasal B.pertussis DNA PCR NOT DETECTED 09/22/21 14:52 Nasal C.pneumoniae (PCR) NOT DETECTED 09/22/21 14:52 [place]aro Human Metapneumo PCR NOT DETECTED 09/22/21 14:52 Nasal M.pneumoniae (PCR) NOT DETECTED 09/22/21 14:52 Nasal SARS-CoV-2 (PCR) NOT DETECTED 09/22/21 14:52 Blood Type A POSITIVE 09/22/21 15:00 Blood Type Recheck A POSITIVE 09/22/21 13:56 Antibody Screen NEGATIVE 09/22/21 15:00 Crossmatch IS Only See Detail 09/22/21 15:00 Sepsis Event Note (H) - Evaluation Current Stage of Sepsis: Ruled out ABX Reporting Has patient been on IV antibiotics over the past 48 hours?: Yes Current Medications - Current Medications Current Medications: Active Medications Acetaminophen (Acetaminophen 325 Mg Tablet) 650 mg PO Q4HR PRN PRN Reason: Pain 1 to 4 Last Admin: 09/30/21 06:07 Dose: 650 mg Atorvastatin Calcium (Atorvastatin 40 Mg Tablet) 40 mg PO QPM SONAM Last Admin: 09/29/21 20:29 Dose: 40 mg Baclofen (Baclofen 10 Mg Tablet) 10 mg PO TID PRN PRN Reason: Bladder Spasms Last Admin: 09/29/21 06:30 Dose: 10 mg Ferrous Gluconate (Ferrous Gluconate 324 Mg Tablet) 324 mg PO DAILYWM [facility] Last Admin: 09/30/21 09:13 Dose: 324 mg Lisinopril (Lisinopril 5 Mg Tablet) 10 mg PO DAILY [facility] Last Admin: 09/30/21 09:14 Dose: 10 mg Morphine Sulfate (Morphine 2 Mg/Ml Carpuject) 2 mg IVP Q2HR PRN PRN Reason: PAIN Last Admin: 09/26/21 01:45 Dose: 2 mg Nitrofurantoin (Nitrofurantoin Macro 100 Mg Capsule) 100 mg PO BID [facility] Last Admin: 09/30/21 09:13 Dose: 100 mg Ondansetron HCl (Ondansetron Odt 4 Mg Tablet) 4 mg TL Q6HR PRN PRN Reason: Nausea / Vomiting Ondansetron HCl (Ondansetron 4 Mg/2 Ml Vial) 4 mg IVP Q6HR PRN PRN Reason: Nausea / Vomiting Oxybutynin Chloride (Oxybutynin 5mg Tablet) 5 mg PO BID [facility] Last Admin: 09/30/21 09:13 Dose: 5 mg Oxycodone HCl (Oxycodone 5 Mg Tablet) 5 mg PO Q4HR PRN PRN Reason: Pain 5 to 7 Last Admin: 09/30/21 06:07 Dose: 5 mg Phenazopyridine HCl (Phenazopyridine 100 Mg Tablet) 100 mg PO TID [facility] Last Admin: 09/30/21 06:07 Dose: 100 mg Polyethylene Glycol (Polyethylene Glycol 3350 17 Gm Packet) 17 gm PO DAILY [facility] Last Admin: 09/30/21 09:14 Dose: Not Given Saccharomyces Boulardii (Saccharomyces Boulardii 250 Mg Capsule) 250 mg PO BIDWM [facility] Last Admin: 09/30/21 09:13 Dose: 250 mg Sodium Chloride (Sodium Chloride Flush 0.9% 10 Ml Syringe) 10 ml IVP PRN PRN PRN Reason: NEEDED PER PROVIDER ORDERS Sodium Chloride (Sodium Chloride Flush 0.9% 10 Ml Syringe) 10 ml IVP 0100,0900,1700 [facility] Last Admin: 09/30/21 09:13 Dose: 10 ml Tamsulosin HCl (Tamsulosin 0.4 Mg Capsule) 0.4 mg PO DAILY [facility] Last Admin: 09/30/21 09:13 Dose: 0.4 mg Aspirin Chewable [St Rodolfo Aspirin] 81 mg PO DAILY 04/24/19 lisinopriL [Prinivil] 10 mg PO DAILY 04/24/19 Acetaminophen 500 mg PO DAILY PRN 05/07/19 Amiodarone [Pacerone] 100 mg PO DAILY 05/07/19 Carvedilol [Coreg] 12.5 mg PO BID 05/07/19 Rosuvastatin Calcium [Crestor] 40 mg PO DAILY 05/07/19
[2021-09-30 20:31] LABS: HCT - HEMATOCRIT 31.7 % (42.0-52.0)
[2021-09-30] MEDS: ATORVASTATIN 40 MG TABLET PO SCH (22:29)
[2021-10-01] MEDS: SODIUM CHLORIDE FLUSH 0.9% 10 ML SYRINGE IVP SCH ×3 (03:47→17:07)
[2021-10-01 04:49] LABS: BASOPHILS % (AUTO) 0.5 %; EOSINOPHILS # (AUTO) 0.3 10^3/uL (0.0-0.7); EOSINOPHILS % (AUTO) 5.5 %; HCT - HEMATOCRIT 31.1 % (42.0-52.0); LYMPHOCYTES % (AUTO) 16.3 %; MEAN CORPUSCULAR HEMOGLOBIN 21.5 pg (27.0-31.0); MEAN CORPUSCULAR HGB CONC 28.9 g/dL (32.0-36.0); MEAN CORPUSCULAR VOLUME 74.2 fL (80.0-94.0); MEAN PLATELET VOLUME 9.6 fL (7.4-11.4); MONOCYTES # (AUTO) 0.6 10^3/uL (0.0-1.0); MONOCYTES % (AUTO) 9.4 %; NEUTROPHILS # (AUTO) 4.2 10^3/uL (1.5-6.6); NEUTROPHILS % (AUTO) 67.8 %; PLT - PLATELET COUNT 157 10^3/uL (130-450); RED BLOOD COUNT 4.19 10^6/uL (4.70-6.10); RED CELL DISTRIBUTION WIDTH 23.6 % (12.0-15.0); WHITE BLOOD COUNT 6.2 x10^3/uL (4.8-10.8)
[2021-10-01 04:51] LABS: SLIDE REVIEW? Indicated
[2021-10-01 04:54] LABS: CALCIUM 8.4 mg/dL (8.5-10.3); CREATININE 1.1 mg/dL (0.6-1.2); POTASSIUM 3.9 mmol/L (3.5-5.0)
[2021-10-01 05:15] LABS: PLATELET ESTIMATE, MANUAL NORMAL (130-450,000) (NORMAL)
[2021-10-01] MEDS: PHENAZOPYRIDINE 100 MG TABLET PO SCH ×3 (06:11→22:05)
[2021-10-01] MEDS: ACETAMINOPHEN 325 MG TABLET PO PRN (06:11)
[2021-10-01] MEDS: oxyCODONE 5 MG TABLET PO PRN (06:12)
[2021-10-01] MEDS: OXYBUTYNIN 5MG TABLET PO SCH ×2 (08:55→22:05)
[2021-10-01] MEDS: FERROUS GLUCONATE 324 MG TABLET PO SCH (08:55)
[2021-10-01] MEDS: SACCHAROMYCES BOULARDII 250 MG CAPSULE PO SCH ×2 (08:56→17:07)
[2021-10-01] MEDS: NITROFURANTOIN MACRO 100 MG CAPSULE PO SCH ×2 (08:56→22:05)
[2021-10-01] MEDS: lisinopriL 5 MG TABLET PO SCH (08:57)
[2021-10-01] MEDS: TAMSULOSIN 0.4 MG CAPSULE PO SCH (08:57)
[2021-10-01] MEDS: polyethylene glycoL 3350 17 GM PACKET PO SCH ×2 (09:04→18:22)
[2021-10-01 13:15] LABS: HCT - HEMATOCRIT 32.7 % (42.0-52.0); HGB - HEMOGLOBIN 9.5 g/dL (14.0-18.0)
--- NOTE | 2021-10-01 14:13 | PROVIDER PROGRESS NOTE ---
Assessment/Plan - Problem List (1) Hemorrhagic cystitis Assessment/Plan: 2/3 normal color of fluid from irrigation, pt's HGB is elevated. It seem pt's hematuria is stopped. pt hope we d/c de jesus. we will give pt's pain meds prior to discharge of his de jesus on today, then closely monitor his urine output and see if pt still has hematuria. if promised, pt might d/c to home on tomorrow. 2/2 improved. HGB is stable. pt report he feel better. The color of irrigation fluid from De Jesus is nearly yellow. pt took pyridium now. Discussed the care plan with patient, patient stated he took long time at the to control of his hematuria because of recurrence happened, hope not too fast to pull his De Jesus. but he hope to d/c his de jesus when it is ready for him to be d/c to home. 2/, HGB is elevated to 10.8 from 9.0 on today, but Irrigation fluid still show slight redness and small blood clots but it is improved comparing with yesterday. continue irrigation now, continue treat with PO antibiotics Macrobid. we called at the admission, unfortunately they did not accept pt until we discharge pt and followup with their urologist as out-pt. pt had nearly 20 days at for this problem before. (2) Bradycardia Impression: Stable. Heart rate has been 50s-60s overnight. No sinus pause noted overnight. Denies chest pain, dizziness or shortness of breath. Will continue to hold the home Coreg and continue telemetry. (3) Acute blood loss anemia Impression: 2/3 HGB is elevated, continue iron supplement, continue lab monitor 2/2 HGB is stable, continue lab monitor improved, will continue to monitor. Continue iron supplementation. (4) Urinary retention Impression: 2/3 we will d/c de jesus on today, then closely monitor his urinary output and if hematuria, continue Flomax. continue De Jesus now due to still hemorrhagic cystitis although it is improved. Previous admission required nearly 20 days for this issue to resolve, today is day 4. Continues to require irrigation as he is still passing clots with dark red output, alternating with more pink output once the clots have passed. Will plan to remove once the irrigation solution clears and hemoglobin has remained stable but for now the de jesus is required for continuous bladder irrigation. His home dose of Flomax has been resumed. (5) History of non-ST elevation myocardial infarction (NSTEMI) Impression: Pt was recently diagnosed with NSTEMI at , likely has demand ischemia from hematuria and anemia. He is currently taking his statin but the other cardiac meds have been held due to his bradycardia and hypotension, hematuria. Will continue with telemetry and vitals monitoring. He denies chest pain and palpitations. Will need to follow up with his outpatient clinical staff anesthesiologist after discharge. (6) Chronic kidney disease (CKD), stage III (moderate) Impression: Stable. Creatinine currently 1.0. (7) Hypotension Impression: resolved now. BPs have been 110-130s/50-60s. He has been asymptomatic, denying chest pain, palpitations, dizziness, light-headedness and dyspnea. He has been able to get up to the bathroom without issue. Will continue to monitor for now. Is not currently receiving any cardiac meds other than Lipitor. (8) UTI (urinary tract infection) Impression: pt was treated with IV antibiotics, now antibiotics is switched to PO, macrobid. The UTI is likely related to his hematuria and retention. Will continue IV abx and probiotics. (9) Elevated troponin Impression: Stable. Elevated troponin on admission, at last check was trending down. Denies chest pain and is hemodynamically stable with low normal BP and bradycardia. Recent echo performed revealed EF 45-50%, with regional wall motion abnormality. He was recently diagnosed with NSTEMI at , likely had demand ischemia from hematuria and anemia. - Current Meds Current Meds: Current Medications Generic Name Dose Route Start Last Admin Trade Name Freq PRN Reason Stop Dose Admin Acetaminophen 650 mg 09/22/21 21:40 10/01/21 06:11 Acetaminophen 325 Mg Tablet PO 650 mg Q4HR PRN Administration Pain 1 to 4 Atorvastatin Calcium 40 mg 09/23/21 21:00 09/30/21 22:29 Atorvastatin 40 Mg Tablet PO 40 mg QPM SONAM Administration Baclofen 10 mg 09/23/21 00:21 09/29/21 06:30 Baclofen 10 Mg Tablet PO 10 mg TID PRN Administration Bladder Spasms Ferrous Gluconate 324 mg 09/23/21 15:00 10/01/21 08:55 Ferrous Gluconate 324 Mg Tablet PO 324 mg DAILYWM SONAM Administration Lisinopril 10 mg 09/30/21 09:00 10/01/21 08:57 Lisinopril 5 Mg Tablet PO 10 mg DAILY SONAM Administration Morphine Sulfate 2 mg 09/23/21 06:52 09/26/21 01:45 Morphine 2 Mg/Ml Carpuject IVP 2 mg Q2HR PRN Administration PAIN Nitrofurantoin 100 mg 09/28/21 21:00 10/01/21 08:56 Nitrofurantoin Macro 100 Mg Capsule PO 100 mg BID SONAM Administration Oxybutynin Chloride 5 mg 09/23/21 09:00 10/01/21 08:55 Oxybutynin 5mg Tablet PO 5 mg BID SONAM Administration Oxycodone HCl 5 mg 09/22/21 21:40 10/01/21 06:12 Oxycodone 5 Mg Tablet PO 5 mg Q4HR PRN Administration Pain 5 to 7 Phenazopyridine HCl 100 mg 09/28/21 22:00 10/01/21 06:11 Phenazopyridine 100 Mg Tablet PO 100 mg TID SONAM Administration Polyethylene Glycol 17 gm 09/24/21 09:00 10/01/21 09:04 Polyethylene Glycol 3350 17 Gm Packet PO Not Given DAILY SONAM Saccharomyces Boulardii 250 mg 09/24/21 08:00 10/01/21 08:56 Saccharomyces Boulardii 250 Mg Capsule PO 250 mg BIDWM SONAM Administration Sodium Chloride 10 ml 09/23/21 01:00 10/01/21 09:06 Sodium Chloride Flush 0.9% 10 Ml Syringe IVP 10 ml 0100,0900,1700 SONAM Administration Tamsulosin HCl 0.4 mg 09/23/21 09:00 10/01/21 08:57 Tamsulosin 0.4 Mg Capsule PO 0.4 mg DAILY SONAM Administration - Lab Result Fish Bone Diagrams: 10/01/21 13:10 10/01/21 04:39 - Additional Planning My Orders: My Active Orders 10/01/21 14:07 Nicole Discontinuation [RC] ONCE 10/02/21 05:00 BMP - BASIC METABOLIC PANEL [CHEM] DAILYLAB CBC - COMP BLD CT W/AUTO DIFF [HEME] DAILYLAB 10/03/21 05:00 BMP - BASIC METABOLIC PANEL [CHEM] DAILYLAB CBC - COMP BLD CT W/AUTO DIFF [HEME] DAILYLAB 10/04/21 05:00 BMP - BASIC METABOLIC PANEL [CHEM] DAILYLAB CBC - COMP BLD CT W/AUTO DIFF [HEME] DAILYLAB 10/05/21 05:00 BMP - BASIC METABOLIC PANEL [CHEM] DAILYLAB CBC - COMP BLD CT W/AUTO DIFF [HEME] DAILYLAB 10/06/21 05:00 BMP - BASIC METABOLIC PANEL [CHEM] DAILYLAB CBC - COMP BLD CT W/AUTO DIFF [HEME] DAILYLAB 10/07/21 05:00 BMP - BASIC METABOLIC PANEL [CHEM] DAILYLAB CBC - COMP BLD CT W/AUTO DIFF [HEME] DAILYLAB 10/08/21 05:00 BMP - BASIC METABOLIC PANEL [CHEM] DAILYLAB CBC - COMP BLD CT W/AUTO DIFF [HEME] DAILYLAB 10/09/21 05:00 BMP - BASIC METABOLIC PANEL [CHEM] DAILYLAB CBC - COMP BLD CT W/AUTO DIFF [HEME] DAILYLAB Subjective - Subjective Patient Reports: Feeling Better, Resting Comfortably Objective Vital Signs: Vital Signs - 24 hr 09/30/21 09/30/21 09/30/21 16:42 20:13 23:31 Temperature 37.9 C 37.5 C 36.7 C Heart Rate [ 60 55 L 56 L Monitoring electrodes] Respiratory 18 18 18 Rate Blood Pressure 121/57 L 105/45 L 128/52 L [Left Brachial artery] O2 Saturation 95 97 95 10/01/21 10/01/21 10/01/21 04:12 09:00 13:00 Temperature 37 C 37.0 C 36.6 C Heart Rate [ 55 L 56 L 57 L Monitoring electrodes] Respiratory 18 18 18 Rate Blood Pressure 125/52 L 126/51 L 114/54 L [Left Brachial artery] O2 Saturation 96 92 93 Oxygen O2 Source Room air I&O (Last 24 Hrs): Intake and Output Totals x24h 09/29/21 09/30/21 10/01/21 23:59 23:59 23:59 Intake Total 98207 5884 532 Output Total 11405 9014 1400 [facility] -[id number] [phone] General: Alert, Oriented x3, No acute distress HEENT: Atraumatic Neck: Supple Lymphatic: no adenopathy Neuro: Alert, Non Focal, Oriented Times 3 Cardiovascular: Regular rate, Normal S1, Normal S2 Respiratory: Chest non-tender, No respiratory distress Abdomen: Normal bowel sounds, Soft Genitourinary: No Discharge Extremities: Normal pulses - Results Results: Laboratory Results WBC 6.2 x10^3/uL (4.8-10.8) 10/01/21 04:39 RBC 4.19 10^6/uL (4.70-6.10) L 10/01/21 04:39 Hgb 9.5 g/dL (14.0-18.0) L 10/01/21 13:10 Hct 32.7 % (42.0-52.0) L 10/01/21 13:10 MCV 74.2 fL (80.0-94.0) L 10/01/21 04:39 MCH 21.5 pg (27.0-31.0) L 10/01/21 04:39 MCHC 28.9 g/dL (32.0-36.0) L 10/01/21 04:39 RDW 23.6 % (12.0-15.0) H 10/01/21 04:39 Plt Count 157 10^3/uL (130-450) 10/01/21 04:39 MPV 9.6 fL (7.4-11.4) 10/01/21 04:39 Reticulocyte % (Auto) 1.16 % (0.5-2.3) 09/23/21 04:58 Neut # (Auto) 4.2 10^3/uL (1.5-6.6) 10/01/21 04:39 Lymph # (Auto) 1.0 10^3/uL (1.5-3.5) L 10/01/21 04:39 Miner # (Auto) 0.6 10^3/uL (0.0-1.0) 10/01/21 04:39 Eos # (Auto) 0.3 10^3/uL (0.0-0.7) 10/01/21 04:39 Baso # (Auto) 0.0 10^3/uL (0.0-0.1) 10/01/21 04:39 Absolute Nucleated RBC 0.00 x10^3/uL 10/01/21 04:39 Nucleated RBC % 0.0 /100WBC 10/01/21 04:39 Manual Slide Review Indicated 10/01/21 04:39 WBC Morphology NORMAL APPEARANCE (NORMAL) 09/30/21 05:24 Platelet Estimate NORMAL (130-450,000) (NORMAL) 10/01/21 04:39 Platelet Morphology NORMAL APPEARANCE (NORMAL) 09/30/21 05:24 RBC Morph Micro Appear 2+ ANISOCYTOSIS (NORMAL) 2+ HYPOCHROMASIA (NORMAL) 1+ POLYCHROMASIA (NORMAL) 1+ OVALOCYTES (NORMAL) 10/01/21 04:39 RBC Morph Micro Appear 2+ ANISOCYTOSIS (NORMAL) 2+ HYPOCHROMASIA (NORMAL) 1+ POLYCHROMASIA (NORMAL) 1+ OVALOCYTES (NORMAL) 10/01/21 04:39 RBC Morph Micro Appear 2+ ANISOCYTOSIS (NORMAL) 2+ HYPOCHROMASIA (NORMAL) 1+ POLYCHROMASIA (NORMAL) 1+ OVALOCYTES (NORMAL) 10/01/21 04:39 RBC Morph Micro Appear 2+ ANISOCYTOSIS (NORMAL) 2+ HYPOCHROMASIA (NORMAL) 1+ POLYCHROMASIA (NORMAL) 1+ OVALOCYTES (NORMAL) 10/01/21 04:39 Absolute Retic 0.046 10^6/uL (0.020-0.110) 09/23/21 04:58 PT 14.3 secs (9.9-12.6) H 09/22/21 13:56 INR 1.3 (0.8-1.2) H 09/22/21 13:56 APTT 28.7 secs (24.9-33.3) 09/22/21 13:56 Sodium 137 mmol/L (135-145) 10/01/21 04:39 Potassium 3.9 mmol/L (3.5-5.0) 10/01/21 04:39 Chloride 104 mmol/L (101-111) 10/01/21 04:39 Carbon Dioxide 26 mmol/L (21-32) 10/01/21 04:39 Anion Gap 7.0 (6-13) 10/01/21 04:39 BUN 19 mg/dL (6-20) 10/01/21 04:39 Creatinine 1.1 mg/dL (0.6-1.2) 10/01/21 04:39 Estimated GFR (MDRD) 66 (>89) L 10/01/21 04:39 Glucose 94 mg/dL (70-100) 10/01/21 04:39 Calcium 8.4 mg/dL (8.5-10.3) L 10/01/21 04:39 Iron 20 ug/dL (45-182) L 09/23/21 04:58 TIBC 370 ug/dL (250-450) 09/23/21 04:58 % Saturation 5 % (20-50) L 09/23/21 04:58 Transferrin 264 mg/dL (180-329) 09/23/21 04:58 Ferritin 15.2 ng/mL (23.9-336.2) L 09/23/21 04:58 Total Bilirubin 0.3 mg/dL (0.2-1.0) 09/22/21 13:56 AST 28 IU/L (10-42) 09/22/21 13:56 ALT 29 IU/L (10-60) 09/22/21 13:56 Alkaline Phosphatase 72 IU/L (42-121) 09/22/21 13:56 Lactate Dehydrogenase 129 IU/L (91-225) 09/23/21 04:58 Troponin I High Sens 171.6 ng/L (2.3-19.7) H* 09/24/21 20:01 Total Protein 6.8 g/dL (6.7-8.2) 09/22/21 13:56 Albumin 3.0 g/dL (3.2-5.5) L 09/22/21 13:56 Globulin 3.8 g/dL (2.1-4.2) 09/22/21 13:56 Albumin/Globulin Ratio 0.8 (1.0-2.2) L 09/22/21 13:56 Vitamin B12 437 pg/mL (180-914) 09/23/21 04:58 Urine Color RED/BLOODY 09/22/21 13:18 Urine Clarity BLOODY (CLEAR) 09/22/21 13:18 Urine pH 6.5 PH (5.0-7.5) 09/22/21 13:18 Ur Specific [place] 1.020 (1.002-1.030) 09/22/21 13:18 Urine Protein >=300 mg/dL (NEGATIVE) H 09/22/21 13:18 Urine Glucose (UA) NEGATIVE mg/dL (NEGATIVE) 09/22/21 13:18 Urine Ketones NEGATIVE mg/dL (NEGATIVE) 09/22/21 13:18 Urine Occult Blood LARGE (NEGATIVE) H 09/22/21 13:18 Urine Nitrite NEGATIVE (NEGATIVE) 09/22/21 13:18 Urine Bilirubin NEGATIVE (NEGATIVE) 09/22/21 13:18 Urine Urobilinogen 0.2 (NORMAL) E.U./dL (NORMAL) 09/22/21 13:18 Ur Leukocyte Esterase SMALL (NEGATIVE) H 09/22/21 13:18 Urine RBC TNTC /HPF (0-5) H 09/22/21 13:18 Urine WBC 0-3 /HPF (0-3) 09/22/21 13:18 Ur Squamous Epith Cells NONE SEEN (<= Few) 09/22/21 13:18 Urine Bacteria None Seen /HPF (None Seen) 09/22/21 13:18 Ur Microscopic Review INDICATED 09/22/21 13:18 Urine Culture Comments INDICATED 09/22/21 13:18 Nasal Adenovirus (PCR) NOT DETECTED 09/22/21 14:52 Nasal B. parapertussis DNA (PCR) NOT DETECTED 09/22/21 14:52 Nasal Coronavir 229E PCR NOT DETECTED 09/22/21 14:52 Nasal Coronavir HKU1 PCR NOT DETECTED 09/22/21 14:52 Nasal Coronavir NL63 PCR NOT DETECTED 09/22/21 14:52 Nasal Coronavir OC43 PCR NOT DETECTED 09/22/21 14:52 Nasal Enterovir/Rhinovir PCR NOT DETECTED 09/22/21 14:52 Nasal Influenza B PCR NOT DETECTED 09/22/21 14:52 Nasal Influenza A PCR NOT DETECTED 09/22/21 14:52 Nasal Parainfluen 1 PCR NOT DETECTED 09/22/21 14:52 Nasal Parainfluen 2 PCR NOT DETECTED 09/22/21 14:52 Nasal Parainfluen 3 PCR NOT DETECTED 09/22/21 14:52 Nasal Parainfluen 4 PCR NOT DETECTED 09/22/21 14:52 Nasal RSV (PCR) NOT DETECTED 09/22/21 14:52 Nasal B.pertussis DNA PCR NOT DETECTED 09/22/21 14:52 Nasal C.pneumoniae (PCR) NOT DETECTED 09/22/21 14:52 Gumaro Human Metapneumo PCR NOT DETECTED 09/22/21 14:52 Nasal M.pneumoniae (PCR) NOT DETECTED 09/22/21 14:52 Nasal SARS-CoV-2 (PCR) NOT DETECTED 09/22/21 14:52 Blood Type A POSITIVE 09/22/21 15:00 Blood Type Recheck A POSITIVE 09/22/21 13:56 Antibody Screen NEGATIVE 09/22/21 15:00 Crossmatch IS Only See Detail 09/22/21 15:00 Sepsis Event Note (H) - Evaluation Current Stage of Sepsis: Ruled out ABX Reporting Has patient been on IV antibiotics over the past 48 hours?: Yes Current Medications - Current Medications Current Medications: Active Medications Acetaminophen (Acetaminophen 325 Mg Tablet) 650 mg PO Q4HR PRN PRN Reason: Pain 1 to 4 Last Admin: 10/01/21 06:11 Dose: 650 mg Atorvastatin Calcium (Atorvastatin 40 Mg Tablet) 40 mg PO QPM [facility] Last Admin: 09/30/21 22:29 Dose: 40 mg Baclofen (Baclofen 10 Mg Tablet) 10 mg PO TID PRN PRN Reason: Bladder Spasms Last Admin: 09/29/21 06:30 Dose: 10 mg Ferrous Gluconate (Ferrous Gluconate 324 Mg Tablet) 324 mg PO DAILYWM [facility] Last Admin: 10/01/21 08:55 Dose: 324 mg Lisinopril (Lisinopril 5 Mg Tablet) 10 mg PO DAILY [facility] Last Admin: 10/01/21 08:57 Dose: 10 mg Morphine Sulfate (Morphine 2 Mg/Ml Carpuject) 2 mg IVP Q2HR PRN PRN Reason: PAIN Last Admin: 09/26/21 01:45 Dose: 2 mg Nitrofurantoin (Nitrofurantoin Macro 100 Mg Capsule) 100 mg PO BID [facility] Last Admin: 10/01/21 08:56 Dose: 100 mg Ondansetron HCl (Ondansetron Odt 4 Mg Tablet) 4 mg TL Q6HR PRN PRN Reason: Nausea / Vomiting Ondansetron HCl (Ondansetron 4 Mg/2 Ml Vial) 4 mg IVP Q6HR PRN PRN Reason: Nausea / Vomiting Oxybutynin Chloride (Oxybutynin 5mg Tablet) 5 mg PO BID [facility] Last Admin: 10/01/21 08:55 Dose: 5 mg Oxycodone HCl (Oxycodone 5 Mg Tablet) 5 mg PO Q4HR PRN PRN Reason: Pain 5 to 7 Last Admin: 10/01/21 06:12 Dose: 5 mg Phenazopyridine HCl (Phenazopyridine 100 Mg Tablet) 100 mg PO TID [facility] Last Admin: 10/01/21 06:11 Dose: 100 mg Polyethylene Glycol (Polyethylene Glycol 3350 17 Gm Packet) 17 gm PO DAILY [facility] Last Admin: 10/01/21 09:04 Dose: Not Given Saccharomyces Boulardii (Saccharomyces Boulardii 250 Mg Capsule) 250 mg PO BIDWM [facility] Last Admin: 10/01/21 08:56 Dose: 250 mg Sodium Chloride (Sodium Chloride Flush 0.9% 10 Ml Syringe) 10 ml IVP PRN PRN PRN Reason: NEEDED PER PROVIDER ORDERS Sodium Chloride (Sodium Chloride Flush 0.9% 10 Ml Syringe) 10 ml IVP 0100,0900,1700 [facility] Last Admin: 10/01/21 09:06 Dose: 10 ml Tamsulosin HCl (Tamsulosin 0.4 Mg Capsule) 0.4 mg PO DAILY [facility] Last Admin: 10/01/21 08:57 Dose: 0.4 mg Aspirin Chewable [St Rodolfo Aspirin] 81 mg PO DAILY 04/24/19 lisinopriL [Prinivil] 10 mg PO DAILY 04/24/19 Acetaminophen 500 mg PO DAILY PRN 05/07/19 Amiodarone [Pacerone] 100 mg PO DAILY 05/07/19 Carvedilol [Coreg] 12.5 mg PO BID 05/07/19 Rosuvastatin Calcium [Crestor] 40 mg PO DAILY 05/07/19
[2021-10-01] MEDS: MORPHINE 2 MG/ML CARPUJECT IVP PRN (14:28)
[2021-10-01 21:09] LABS: HCT - HEMATOCRIT 35.4 % (42.0-52.0); HGB - HEMOGLOBIN 10.1 g/dL (14.0-18.0)
[2021-10-01] MEDS: ATORVASTATIN 40 MG TABLET PO SCH (22:05)
[2021-10-02] MEDS: SODIUM CHLORIDE FLUSH 0.9% 10 ML SYRINGE IVP SCH ×3 (02:55→17:17)
[2021-10-02] MEDS: BACLOFEN 10 MG TABLET PO PRN ×2 (02:55→09:15)
[2021-10-02] MEDS: oxyCODONE 5 MG TABLET PO PRN ×2 (05:34→10:56)
[2021-10-02] MEDS: PHENAZOPYRIDINE 100 MG TABLET PO SCH ×3 (05:34→21:27)
[2021-10-02 06:36] LABS: BASOPHILS % (AUTO) 0.5 %; EOSINOPHILS # (AUTO) 0.2 10^3/uL (0.0-0.7); EOSINOPHILS % (AUTO) 3.7 %; HCT - HEMATOCRIT 33.5 % (42.0-52.0); HGB - HEMOGLOBIN 9.9 g/dL (14.0-18.0); LYMPHOCYTES # (AUTO) 0.9 10^3/uL (1.5-3.5); LYMPHOCYTES % (AUTO) 13.7 %; MEAN CORPUSCULAR HEMOGLOBIN 22.1 pg (27.0-31.0); MEAN CORPUSCULAR HGB CONC 29.6 g/dL (32.0-36.0); MEAN CORPUSCULAR VOLUME 74.9 fL (80.0-94.0); MEAN PLATELET VOLUME 9.4 fL (7.4-11.4); MONOCYTES # (AUTO) 0.7 10^3/uL (0.0-1.0); MONOCYTES % (AUTO) 11.8 %; NEUTROPHILS # (AUTO) 4.4 10^3/uL (1.5-6.6); PLT - PLATELET COUNT 167 10^3/uL (130-450); RED BLOOD COUNT 4.47 10^6/uL (4.70-6.10); RED CELL DISTRIBUTION WIDTH 23.5 % (12.0-15.0); WHITE BLOOD COUNT 6.2 x10^3/uL (4.8-10.8)
[2021-10-02 06:39] LABS: SLIDE REVIEW? Indicated
[2021-10-02 06:44] LABS: CALCIUM 8.6 mg/dL (8.5-10.3); POTASSIUM 3.8 mmol/L (3.5-5.0)
[2021-10-02 07:15] LABS: PLATELET MORPHOLOGY NORMAL APPEARANCE (NORMAL)
[2021-10-02 07:16] LABS: PLATELET ESTIMATE, MANUAL NORMAL (130-450,000) (NORMAL)
[2021-10-02 07:55] LABS: CALCIUM 8.6 mg/dL (8.5-10.3); CREATININE 1.9 mg/dL (0.6-1.2); POTASSIUM 4.1 mmol/L (3.5-5.0)
[2021-10-02] MEDS: NITROFURANTOIN MACRO 100 MG CAPSULE PO SCH ×2 (09:14→21:27)
[2021-10-02] MEDS: FERROUS GLUCONATE 324 MG TABLET PO SCH (09:14)
[2021-10-02] MEDS: SACCHAROMYCES BOULARDII 250 MG CAPSULE PO SCH ×2 (09:15→17:17)
[2021-10-02] MEDS: lisinopriL 5 MG TABLET PO SCH (09:15)
[2021-10-02] MEDS: OXYBUTYNIN 5MG TABLET PO SCH ×2 (09:15→21:27)
[2021-10-02] MEDS: MORPHINE 2 MG/ML CARPUJECT IVP PRN (09:16)
[2021-10-02] MEDS: TAMSULOSIN 0.4 MG CAPSULE PO SCH (09:16)
[2021-10-02] MEDS: SODIUM CHLORIDE 0.9% 1,000 ML IV SCH ×2 (09:19→20:19)
[2021-10-02] MEDS: GABAPENTIN 100 MG CAPSULE PO SCH ×3 (10:56→21:27)
[2021-10-02 15:14] LABS: CALCIUM 8.5 mg/dL (8.5-10.3); POTASSIUM 3.9 mmol/L (3.5-5.0)
--- NOTE | 2021-10-02 16:21 | PROVIDER PROGRESS NOTE ---
Assessment/Plan - Problem List (1) Hemorrhagic cystitis Assessment/Plan: 2/ pt's de jesus was d/c on yesterday. pt has urine with normal color and his HGB is stable. resolved. pt now has urinary incontinence, advise pt reduce/avoiding caffeine. pt d/c De Jesus on yesterday, hopefully urinary incontinence is temporal, pt may followup with urologist as out-pt 2/3 normal color of fluid from irrigation, pt's HGB is elevated. It seem pt's hematuria is stopped. pt hope we d/c de jesus. we will give pt's pain meds prior to discharge of his de jesus on today, then closely monitor his urine output and see if pt still has hematuria. if promised, pt might d/c to home on tomorrow. 2/ improved. HGB is stable. pt report he feel better. The color of irrigation fluid from De Jesus is nearly yellow. pt took pyridium now. Discussed the care plan with patient, patient stated he took long time at the to control of his hematuria because of recurrence happened, hope not too fast to pull his De Jesus. but he hope to d/c his de jesus when it is ready for him to be d/c to home. 2, HGB is elevated to 10.8 from 9.0 on today, but Irrigation fluid still show slight redness and small blood clots but it is improved comparing with yesterday. continue irrigation now, continue treat with PO antibiotics Macrobid. we called at the admission, unfortunately they did not accept pt until we discharge pt and followup with their urologist as out-pt. pt had nearly 20 days at for this problem before. (2)ROSI pt had elevated creatinine to 2.0. he had creatinine 1.1 before yesterday. he report he did not drink much fluid because urinary incontinence and discomfort on last night. start IVF and lab monitor (3) Bradycardia Impression: Stable. Heart rate has been 50s-60s overnight. No sinus pause noted overnight. Denies chest pain, dizziness or shortness of breath. Will continue to hold the home Coreg and continue telemetry. (4) Acute blood loss anemia Impression: 10/02 stable and slight elevated. 2/3 HGB is elevated, continue iron supplement, continue lab monitor 2/2 HGB is stable, continue lab monitor improved, will continue to monitor. Continue iron supplementation. (5) History of non-ST elevation myocardial infarction (NSTEMI) Impression: Pt was recently diagnosed with NSTEMI at , likely has demand ischemia from hematuria and anemia. He is currently taking his statin but the other cardiac meds have been held due to his bradycardia and hypotension, hematuria. Will continue with telemetry and vitals monitoring. He denies chest pain and palpitations. Will need to follow up with his outpatient financial legal assistant after discharge. (6) UTI (urinary tract infection) Impression: pt was treated with IV antibiotics, now antibiotics is switched to PO, macrobid. The UTI is likely related to his hematuria and retention. continue macrobid PO and probiotics. (10) Elevated troponin Impression: Stable. Elevated troponin on admission, at last check was trending down. Denies chest pain and is hemodynamically stable with low normal BP and bradycardia. Recent echo performed revealed EF 45-50%, with regional wall motion abnormality. He was recently diagnosed with NSTEMI at , likely had demand ischemia from hematuria and anemia. - Current Meds Current Meds: Current Medications Generic Name Dose Route Start Last Admin Trade Name Freq PRN Reason Stop Dose Admin Acetaminophen 650 mg 09/22/21 21:40 10/01/21 06:11 Acetaminophen 325 Mg Tablet PO 650 mg Q4HR PRN Administration Pain 1 to 4 Atorvastatin Calcium 40 mg 09/23/21 21:00 10/01/21 22:05 Atorvastatin 40 Mg Tablet PO 40 mg QPM SONAM Administration Baclofen 10 mg 09/23/21 00:21 10/02/21 09:15 Baclofen 10 Mg Tablet PO 10 mg TID PRN Administration Bladder Spasms Ferrous Gluconate 324 mg 09/23/21 15:00 10/02/21 09:14 Ferrous Gluconate 324 Mg Tablet PO 324 mg DAILYWM SONAM Administration Gabapentin 100 mg 10/02/21 10:02 10/02/21 14:08 Gabapentin 100 Mg Capsule PO 100 mg TID SONAM Administration Sodium Chloride 1,000 mls @ 100 mls/hr 10/02/21 09:00 10/02/21 09:19 Normal Saline 0.9% IV 10/03/21 04:59 100 mls/hr .Q10H SONAM Administration Lisinopril 10 mg 09/30/21 09:00 10/02/21 09:15 Lisinopril 5 Mg Tablet PO 10 mg DAILY SONAM Administration Morphine Sulfate 2 mg 09/23/21 06:52 10/02/21 09:16 Morphine 2 Mg/Ml Carpuject IVP 2 mg Q2HR PRN Administration PAIN Nitrofurantoin 100 mg 09/28/21 21:00 10/02/21 09:14 Nitrofurantoin Macro 100 Mg Capsule PO 100 mg BID SONAM Administration Oxybutynin Chloride 5 mg 09/23/21 09:00 10/02/21 09:15 Oxybutynin 5mg Tablet PO 5 mg BID SONAM Administration Oxycodone HCl 5 mg 09/22/21 21:40 10/02/21 10:56 Oxycodone 5 Mg Tablet PO 5 mg Q4HR PRN Administration Pain 5 to 7 Phenazopyridine HCl 100 mg 09/28/21 22:00 10/02/21 14:08 Phenazopyridine 100 Mg Tablet PO 100 mg TID SONAM Administration Polyethylene Glycol 17 gm 09/24/21 09:00 10/01/21 18:22 Polyethylene Glycol 3350 17 Gm Packet PO 17 gm DAILY SONAM Administration Saccharomyces Boulardii 250 mg 09/24/21 08:00 10/02/21 09:15 Saccharomyces Boulardii 250 Mg Capsule PO 250 mg BIDWM SONAM Administration Sodium Chloride 10 ml 09/23/21 01:00 10/02/21 09:16 Sodium Chloride Flush 0.9% 10 Ml Syringe IVP 10 ml 0100,0900,1700 SONAM Administration Tamsulosin HCl 0.4 mg 09/23/21 09:00 10/02/21 09:16 Tamsulosin 0.4 Mg Capsule PO 0.4 mg DAILY SONAM Administration - Lab Result Fish Bone Diagrams: 10/02/21 06:30 10/02/21 15:00 - Additional Planning My Orders: My Active Orders 10/02/21 09:00 Sodium Chloride 0.9% [Normal Saline 0.9%] 1,000 ml IV 100 mls/hr 10/02/21 10:02 Gabapentin [Neurontin] 100 mg PO TID 10/02/21 11:01 Bladder Scan [RC] ONCE 10/03/21 05:00 BMP - BASIC METABOLIC PANEL [CHEM] DAILYLAB CBC - COMP BLD CT W/AUTO DIFF [HEME] DAILYLAB 10/04/21 05:00 BMP - BASIC METABOLIC PANEL [CHEM] DAILYLAB CBC - COMP BLD CT W/AUTO DIFF [HEME] DAILYLAB 10/05/21 05:00 BMP - BASIC METABOLIC PANEL [CHEM] DAILYLAB CBC - COMP BLD CT W/AUTO DIFF [HEME] DAILYLAB 10/06/21 05:00 BMP - BASIC METABOLIC PANEL [CHEM] DAILYLAB CBC - COMP BLD CT W/AUTO DIFF [HEME] DAILYLAB 10/07/21 05:00 BMP - BASIC METABOLIC PANEL [CHEM] DAILYLAB CBC - COMP BLD CT W/AUTO DIFF [HEME] DAILYLAB 10/08/21 05:00 BMP - BASIC METABOLIC PANEL [CHEM] DAILYLAB CBC - COMP BLD CT W/AUTO DIFF [HEME] DAILYLAB 10/09/21 05:00 BMP - BASIC METABOLIC PANEL [CHEM] DAILYLAB CBC - COMP BLD CT W/AUTO DIFF [HEME] DAILYLAB Subjective - Subjective Patient Reports: Resting Comfortably Objective Vital Signs: Vital Signs - 24 hr 10/01/21 10/02/21 10/02/21 21:00 01:00 05:00 Temperature 36.2 C L 36.4 C L 36.8 C Heart Rate [ Brachial] Heart Rate [ 63 51 L 61 Monitoring electrodes] Respiratory 20 18 17 Rate Blood Pressure 115/51 L 118/54 L 138/61 H [Left Brachial artery] O2 Saturation 97 96 95 10/02/21 10/02/21 08:22 11:52 Temperature 36.1 C L 36.2 C L Heart Rate [ 52 L 58 L Brachial] Heart Rate [ Monitoring electrodes] Respiratory 20 20 Rate Blood Pressure 102/47 L 140/55 H [Left Brachial artery] O2 Saturation 95 94 Oxygen O2 Source Room air I&O (Last 24 Hrs): Intake and Output Totals x24h 09/30/21 10/01/21 10/02/21 23:59 23:59 23:59 Intake Total 6980 3050 300 Output Total 8611 4811 340 [facility] -[id number] -6163 -40 General: Alert, Oriented x3, No acute distress HEENT: Atraumatic Neck: Supple Lymphatic: no adenopathy Neuro: Alert, Non Focal, Oriented Times 3 Cardiovascular: Regular rate, Normal S1, Normal S2 Respiratory: Chest non-tender, No respiratory distress Abdomen: Normal bowel sounds, Soft Extremities: Normal pulses - Results Results: Laboratory Results WBC 6.2 x10^3/uL (4.8-10.8) 10/02/21 06:30 RBC 4.47 10^6/uL (4.70-6.10) L 10/02/21 06:30 Hgb 9.9 g/dL (14.0-18.0) L 10/02/21 06:30 Hct 33.5 % (42.0-52.0) L 10/02/21 06:30 MCV 74.9 fL (80.0-94.0) L 10/02/21 06:30 MCH 22.1 pg (27.0-31.0) L 10/02/21 06:30 MCHC 29.6 g/dL (32.0-36.0) L 10/02/21 06:30 RDW 23.5 % (12.0-15.0) H 10/02/21 06:30 Plt Count 167 10^3/uL (130-450) 10/02/21 06:30 MPV 9.4 fL (7.4-11.4) 10/02/21 06:30 Reticulocyte % (Auto) 1.16 % (0.5-2.3) 09/23/21 04:58 Neut # (Auto) 4.4 10^3/uL (1.5-6.6) 10/02/21 06:30 Lymph # (Auto) 0.9 10^3/uL (1.5-3.5) L 10/02/21 06:30 [place] # (Auto) 0.7 10^3/uL (0.0-1.0) 10/02/21 06:30 Eos # (Auto) 0.2 10^3/uL (0.0-0.7) 10/02/21 06:30 Baso # (Auto) 0.0 10^3/uL (0.0-0.1) 10/02/21 06:30 Absolute Nucleated RBC 0.00 x10^3/uL 10/02/21 06:30 Nucleated RBC % 0.0 /100WBC 10/02/21 06:30 Manual Slide Review Indicated 10/02/21 06:30 WBC Morphology NORMAL APPEARANCE (NORMAL) 09/30/21 05:24 Platelet Estimate NORMAL (130-450,000) (NORMAL) 10/02/21 06:30 Platelet Morphology NORMAL APPEARANCE (NORMAL) 10/02/21 06:30 RBC Morph Micro Appear 3+ ANISOCYTOSIS (NORMAL) 2+ HYPOCHROMASIA (NORMAL) 10/02/21 06:30 RBC Morph Micro Appear 3+ ANISOCYTOSIS (NORMAL) 2+ HYPOCHROMASIA (NORMAL) 10/02/21 06:30 Absolute Retic 0.046 10^6/uL (0.020-0.110) 09/23/21 04:58 PT 14.3 secs (9.9-12.6) H 09/22/21 13:56 INR 1.3 (0.8-1.2) H 09/22/21 13:56 APTT 28.7 secs (24.9-33.3) 09/22/21 13:56 Sodium 134 mmol/L (135-145) L 10/02/21 15:00 Potassium 3.9 mmol/L (3.5-5.0) 10/02/21 15:00 Chloride 101 mmol/L (101-111) 10/02/21 15:00 Carbon Dioxide 26 mmol/L (21-32) 10/02/21 15:00 Anion Gap 7.0 (6-13) 10/02/21 15:00 BUN 27 mg/dL (6-20) H 10/02/21 15:00 Creatinine 2.0 mg/dL (0.6-1.2) H 10/02/21 15:00 Estimated GFR (MDRD) 33 (>89) L 10/02/21 15:00 Glucose 104 mg/dL (70-100) H 10/02/21 15:00 Calcium 8.5 mg/dL (8.5-10.3) 10/02/21 15:00 Iron 20 ug/dL (45-182) L 09/23/21 04:58 TIBC 370 ug/dL (250-450) 09/23/21 04:58 % Saturation 5 % (20-50) L 09/23/21 04:58 Transferrin 264 mg/dL (180-329) 09/23/21 04:58 Ferritin 15.2 ng/mL (23.9-336.2) L 09/23/21 04:58 Total Bilirubin 0.3 mg/dL (0.2-1.0) 09/22/21 13:56 AST 28 IU/L (10-42) 09/22/21 13:56 ALT 29 IU/L (10-60) 09/22/21 13:56 Alkaline Phosphatase 72 IU/L (42-121) 09/22/21 13:56 Lactate Dehydrogenase 129 IU/L (91-225) 09/23/21 04:58 Troponin I High Sens 171.6 ng/L (2.3-19.7) H* 09/24/21 20:01 Total Protein 6.8 g/dL (6.7-8.2) 09/22/21 13:56 Albumin 3.0 g/dL (3.2-5.5) L 09/22/21 13:56 Globulin 3.8 g/dL (2.1-4.2) 09/22/21 13:56 Albumin/Globulin Ratio 0.8 (1.0-2.2) L 09/22/21 13:56 Vitamin B12 437 pg/mL (180-914) 09/23/21 04:58 Urine Color RED/BLOODY 09/22/21 13:18 Urine Clarity BLOODY (CLEAR) 09/22/21 13:18 Urine pH 6.5 PH (5.0-7.5) 09/22/21 13:18 Ur Specific [place] 1.020 (1.002-1.030) 09/22/21 13:18 Urine Protein >=300 mg/dL (NEGATIVE) H 09/22/21 13:18 Urine Glucose (UA) NEGATIVE mg/dL (NEGATIVE) 09/22/21 13:18 Urine Ketones NEGATIVE mg/dL (NEGATIVE) 09/22/21 13:18 Urine Occult Blood LARGE (NEGATIVE) H 09/22/21 13:18 Urine Nitrite NEGATIVE (NEGATIVE) 09/22/21 13:18 Urine Bilirubin NEGATIVE (NEGATIVE) 09/22/21 13:18 Urine Urobilinogen 0.2 (NORMAL) E.U./dL (NORMAL) 09/22/21 13:18 Ur Leukocyte Esterase SMALL (NEGATIVE) H 09/22/21 13:18 Urine RBC TNTC /HPF (0-5) H 09/22/21 13:18 Urine WBC 0-3 /HPF (0-3) 09/22/21 13:18 Ur Squamous Epith Cells NONE SEEN (<= Few) 09/22/21 13:18 Urine Bacteria None Seen /HPF (None Seen) 09/22/21 13:18 Ur Microscopic Review INDICATED 09/22/21 13:18 Urine Culture Comments INDICATED 09/22/21 13:18 Nasal Adenovirus (PCR) NOT DETECTED 09/22/21 14:52 Nasal B. parapertussis DNA (PCR) NOT DETECTED 09/22/21 14:52 Nasal Coronavir 229E PCR NOT DETECTED 09/22/21 14:52 Nasal Coronavir HKU1 PCR NOT DETECTED 09/22/21 14:52 Nasal Coronavir NL63 PCR NOT DETECTED 09/22/21 14:52 Nasal Coronavir OC43 PCR NOT DETECTED 09/22/21 14:52 Nasal Enterovir/Rhinovir PCR NOT DETECTED 09/22/21 14:52 Nasal Influenza B PCR NOT DETECTED 09/22/21 14:52 Nasal Influenza A PCR NOT DETECTED 09/22/21 14:52 Nasal Parainfluen 1 PCR NOT DETECTED 09/22/21 14:52 Nasal Parainfluen 2 PCR NOT DETECTED 09/22/21 14:52 Nasal Parainfluen 3 PCR NOT DETECTED 09/22/21 14:52 Nasal Parainfluen 4 PCR NOT DETECTED 09/22/21 14:52 Nasal RSV (PCR) NOT DETECTED 09/22/21 14:52 Nasal B.pertussis DNA PCR NOT DETECTED 09/22/21 14:52 Nasal C.pneumoniae (PCR) NOT DETECTED 09/22/21 14:52 [place] Human Metapneumo PCR NOT DETECTED 09/22/21 14:52 Nasal M.pneumoniae (PCR) NOT DETECTED 09/22/21 14:52 Nasal SARS-CoV-2 (PCR) NOT DETECTED 09/22/21 14:52 Blood Type A POSITIVE 09/22/21 15:00 Blood Type Recheck A POSITIVE 09/22/21 13:56 Antibody Screen NEGATIVE 09/22/21 15:00 Crossmatch IS Only See Detail 09/22/21 15:00 Sepsis Event Note (H) - Evaluation Current Stage of Sepsis: Ruled out ABX Reporting Has patient been on IV antibiotics over the past 48 hours?: Yes Current Medications - Current Medications Current Medications: Active Medications Acetaminophen (Acetaminophen 325 Mg Tablet) 650 mg PO Q4HR PRN PRN Reason: Pain 1 to 4 Last Admin: 10/01/21 06:11 Dose: 650 mg Atorvastatin Calcium (Atorvastatin 40 Mg Tablet) 40 mg PO QPM SONAM Last Admin: 10/01/21 22:05 Dose: 40 mg Baclofen (Baclofen 10 Mg Tablet) 10 mg PO TID PRN PRN Reason: Bladder Spasms Last Admin: 10/02/21 09:15 Dose: 10 mg Ferrous Gluconate (Ferrous Gluconate 324 Mg Tablet) 324 mg PO DAILYWM [facility] Last Admin: 10/02/21 09:14 Dose: 324 mg Gabapentin (Gabapentin 100 Mg Capsule) 100 mg PO TID [facility] Last Admin: 10/02/21 14:08 Dose: 100 mg Sodium Chloride (Normal Saline 0.9%) 1,000 mls @ 100 mls/hr IV .Q10H [facility] Stop: 10/03/21 04:59 Last Admin: 10/02/21 09:19 Dose: 100 mls/hr Lisinopril (Lisinopril 5 Mg Tablet) 10 mg PO DAILY [facility] Last Admin: 10/02/21 09:15 Dose: 10 mg Morphine Sulfate (Morphine 2 Mg/Ml Carpuject) 2 mg IVP Q2HR PRN PRN Reason: PAIN Last Admin: 10/02/21 09:16 Dose: 2 mg Nitrofurantoin (Nitrofurantoin Macro 100 Mg Capsule) 100 mg PO BID [facility] Last Admin: 10/02/21 09:14 Dose: 100 mg Ondansetron HCl (Ondansetron Odt 4 Mg Tablet) 4 mg TL Q6HR PRN PRN Reason: Nausea / Vomiting Ondansetron HCl (Ondansetron 4 Mg/2 Ml Vial) 4 mg IVP Q6HR PRN PRN Reason: Nausea / Vomiting Oxybutynin Chloride (Oxybutynin 5mg Tablet) 5 mg PO BID [facility] Last Admin: 10/02/21 09:15 Dose: 5 mg Oxycodone HCl (Oxycodone 5 Mg Tablet) 5 mg PO Q4HR PRN PRN Reason: Pain 5 to 7 Last Admin: 10/02/21 10:56 Dose: 5 mg Phenazopyridine HCl (Phenazopyridine 100 Mg Tablet) 100 mg PO TID [facility] Last Admin: 10/02/21 14:08 Dose: 100 mg Polyethylene Glycol (Polyethylene Glycol 3350 17 Gm Packet) 17 gm PO DAILY [facility] Last Admin: 10/01/21 18:22 Dose: 17 gm Saccharomyces Boulardii (Saccharomyces Boulardii 250 Mg Capsule) 250 mg PO BIDWM [facility] Last Admin: 10/02/21 09:15 Dose: 250 mg Sodium Chloride (Sodium Chloride Flush 0.9% 10 Ml Syringe) 10 ml IVP PRN PRN PRN Reason: NEEDED PER PROVIDER ORDERS Sodium Chloride (Sodium Chloride Flush 0.9% 10 Ml Syringe) 10 ml IVP 0100,0900,1700 [facility] Last Admin: 10/02/21 09:16 Dose: 10 ml Tamsulosin HCl (Tamsulosin 0.4 Mg Capsule) 0.4 mg PO DAILY [facility] Last Admin: 10/02/21 09:16 Dose: 0.4 mg Aspirin Chewable [St Rodolfo Aspirin] 81 mg PO DAILY 04/24/19 lisinopriL [Prinivil] 10 mg PO DAILY 04/24/19 Acetaminophen 500 mg PO DAILY PRN 05/07/19 Amiodarone [Pacerone] 100 mg PO DAILY 05/07/19 Carvedilol [Coreg] 12.5 mg PO BID 05/07/19 Rosuvastatin Calcium [Crestor] 40 mg PO DAILY 05/07/19
[2021-10-02] MEDS: ATORVASTATIN 40 MG TABLET PO SCH (21:27)
--- NOTE | 2021-10-02 23:28 | Ultrasound Report ---
PROCEDURE: Retroperitoneal INDICATIONS: urinary track obstruction? elevated creatinine TECHNIQUE: Real-time scanning was performed of the retroperitoneal organs, with image documentation. COMPARISON: CT IVP 05/06/2021 FINDINGS: Kidneys: Kidneys are normal in size. Right kidney measures 10.8 cm long; left kidney measures 11.6 cm long. Right renal cortical thickness is 1.4 cm; left renal cortical thickness is 1.2 cm. There is mild to moderate right hydronephrosis. There is a decreased echogenicity are noted within the left k idney which could represent mild hydronephrosis. However, it is noted parapelvic cysts were present o n prior exam and appearance is similar. Small areas of echogenic foci are noted within the left kidne y. Bladder: Prevoid volume 61 cc. Postvoid images were unable to be acquired as patient was unable to vo id. Ureteral jets are present. IMPRESSION: Right hydronephrosis with suspected left parapelvic cysts versus minimal hydronephrosis.. Punctate ar eas of echogenicity are noted within the left kidney possibly calculi. Reviewed by: Chetna Serrano MD on 10/02/2021 11:27 PM PST Approved by: Chetna Serrano MD on 10/02/2021 11:27 PM PST Station ID: [id number]
[2021-10-03] MEDS: oxyCODONE 5 MG TABLET PO PRN (01:22)
[2021-10-03] MEDS: SODIUM CHLORIDE FLUSH 0.9% 10 ML SYRINGE IVP SCH ×2 (01:24→09:11)
[2021-10-03] MEDS: PHENAZOPYRIDINE 100 MG TABLET PO SCH ×2 (05:07→14:27)
[2021-10-03] MEDS: GABAPENTIN 100 MG CAPSULE PO SCH ×2 (05:07→14:27)
[2021-10-03 06:01] LABS: BASOPHILS % (AUTO) 0.6 %; EOSINOPHILS # (AUTO) 0.3 10^3/uL (0.0-0.7); HCT - HEMATOCRIT 30.4 % (42.0-52.0); HGB - HEMOGLOBIN 8.9 g/dL (14.0-18.0); LYMPHOCYTES # (AUTO) 0.8 10^3/uL (1.5-3.5); LYMPHOCYTES % (AUTO) 16.7 %; MEAN CORPUSCULAR HEMOGLOBIN 22.3 pg (27.0-31.0); MEAN CORPUSCULAR HGB CONC 29.3 g/dL (32.0-36.0); MEAN PLATELET VOLUME 10.7 fL (7.4-11.4); MONOCYTES # (AUTO) 0.7 10^3/uL (0.0-1.0); MONOCYTES % (AUTO) 13.7 %; NEUTROPHILS # (AUTO) 3.1 10^3/uL (1.5-6.6); NEUTROPHILS % (AUTO) 62.8 %; PLT - PLATELET COUNT 152 10^3/uL (130-450); RED CELL DISTRIBUTION WIDTH 23.6 % (12.0-15.0)
[2021-10-03 06:04] LABS: SLIDE REVIEW? Indicated
[2021-10-03 06:13] LABS: CALCIUM 8.2 mg/dL (8.5-10.3); CREATININE 1.6 mg/dL (0.6-1.2)
[2021-10-03 06:15] LABS: PLATELET ESTIMATE, MANUAL NORMAL (130-450,000) (NORMAL); PLATELET MORPHOLOGY NORMAL APPEARANCE (NORMAL); RBC MORPHOLOGY (MULTIPLE) 3+ ANISOCYTOSIS (NORMAL); WBC MORPHOLOGY (MULTIPLE) NORMAL APPEARANCE (NORMAL)
[2021-10-03] MEDS ORDERED: SODIUM CHLORIDE 0.9% 1,000 ML IV SCH (07:00)
[2021-10-03] MEDS: FERROUS GLUCONATE 324 MG TABLET PO SCH (09:10)
[2021-10-03] MEDS: polyethylene glycoL 3350 17 GM PACKET PO SCH (09:11)
[2021-10-03] MEDS: OXYBUTYNIN 5MG TABLET PO SCH (09:11)
[2021-10-03] MEDS: SACCHAROMYCES BOULARDII 250 MG CAPSULE PO SCH (09:11)
[2021-10-03] MEDS: NITROFURANTOIN MACRO 100 MG CAPSULE PO SCH (09:11)
[2021-10-03] MEDS: lisinopriL 5 MG TABLET PO SCH (09:11)
[2021-10-03] MEDS: TAMSULOSIN 0.4 MG CAPSULE PO SCH (09:11)
--- NOTE | 2021-10-03 12:16 | Discharge Plan ---
Discharge Plan Problem Reviewed?: Yes Disposition: Home, Self Care Condition: Good Prescriptions: Oxybutynin [Ditropan] 5 mg PO BID #60 tablet Ferrous Gluconate [Fergon] 324 mg PO DAILYWM #30 tablet Tamsulosin [Flomax] 0.4 mg PO DAILY #30 cap Diet: Regular Activity Restrictions: Activity as Tolerated Shower Restrictions: No Driving Restrictions: No Health Concerns: Unfortunately, you have a history of hemorrhagic cystitis problems with previous admissions for this at other hospitals. From what we understand there is no clear etiology other than infection that causes you have these episodes where your bleeding is so severe that you have clots in your bladder, you cannot urinate, and you need to have your bladder irrigated with a Rivera catheter. You have been here 12 days. We have successfully irrigated you for those days. You state that you really like your care here but we can only stress that you really should be seen in a hospital that has urology care. We have no urology care at our hospital. You will need to go home on antibiotic therapy. And please see urology in follow-up. Plan of Treatment: 1. Complete antibiotics 2. See you primary care provider, Dr. Victor 3. See a urologist to make sure there isn't a bladder medicine that can be infused to stop the bladder from bleeding. Care Goals: to not have to come back to the hospital with a bleeding bladder Assessment: patient really wants to come back to our hospital if he needs to return for this but I have asked that he be stabilized in our ER and then seek transfer since we do not have Urology specialty care here. No Smoking: If you smoke, Please STOP! Call for help. Follow-up with: Latanya Ferguson PA-C [Primary Care Provider] -
--- NOTE | 2021-10-03 12:34 | DISCHARGE SUMMARY ---
"Discharge Summary Admit Date: 09/22/21 Discharge Date: 10/03/21 Discharging Provider: Elsa Mcqueen MD Primary Care Provider: Jose Victor MD Code Status: Attempt Resuscitation Condition at Discharge: Good Discharge Disposition: 01 Home, Self Care - DIAGNOSES Discharge Diagnoses with Status of Each Condition: 1. Hemorrhagic cystitis 2. Acute blood loss anemia 3. Urinary retention with bladder spasm 4. History of non-ST elevation myocardial infarction 5. Elevated troponins 6. Acute on Chronic kidney disease stage III 7. MSSA urinary tract infection 8. Probable sick sinus syndrome 9. Chronic systolic heart failure 10. Hypotension - HPI History of Present Illness: This gentleman has symptoms of urinary retention and hematuria dating to early 2020 and was seen by urology for simple benign prostatic hypertrophy with lower urinary tract symptoms of obstruction. A CT of the abdomen and pelvis in October 2020 and April 2021 confirmed benign prostatic hypertrophy and trabecular changes of the urinary bladder. He then presented in April 2021 with hematuria, clots in his urine, possible UTI. Received irrigation, sent home with antibiotics. Returned the next day and then transferred to [facility]. He was also identified as having an NSTEMI. Discharged from [facility] May 24 and started on Plavix for the NSTEMI and irrigated for the hemorrhagic bladder. Cystoscopy done and no tumors found. And then he returned to our emergency room that night with recurrence of clots, urgency, frequency. He stayed in our emergency room until May 26 because of lack of bed availability at [facility]. The patient had stopped Plavix because of continued hematuria. CT angiogram at [facility] was negative for cause of bleeding. Cardiology was consulted and they were okay with stopping apixaban and continuing Plavix. He had occasional episodes of sinus bradycardia and amiodarone was discontinued. Another cystogram was done and other than friable tissue and oozing from the bladder hadley, no discrete masses or other causes of bleeding were found. He was given Amicar. He was sent home June 08. He then returned to our emergency room September 22. He has not made follow-up with urology. He had sudden onset the night before admission of hematuria/hemorrhage hemorrhage, inability to urinate due to the hemorrhagic c ystitis. No fever, no chills. Severe bladder spasms are present. - CONSULTS | PROCEDURES Procedures: Retroperitoneal ultrasound October 02 shows right hydronephrosis but no masses on the right. Left kidney has a parapelvic cyst but no hydronephrosis. Echo genic foci noted within the left kidney. Urine culture from September 22 grew out Staph aureus. - HOSPITAL COURSE Hospital Course: Patient's main problem was that of the hemorrhagic cystitis and hematuria causing clots and obstruction. We contacted urology at [facility] through the emergency room. They felt that the patient did not need to be transferred to their facility. They wanted us to admit him and irrigate the bladder, and they would see the patient in follow-up. We treated him empirically as a UTI and he grew out MSSA. He was switched to Macrobid from Rocephin. At discharge she was switched to Levaquin since Macrobid really does not cover prostate. Elevated troponins were trended and we do not think he had another NSTEMI. We felt that he was having demand ischemia in the face of stress, congestive heart failure. We were worried about his chronic systolic heart failure with an ejection fraction of 45 to 50% and made sure that we did not give IV fluids excessively and avoid acute congestive heart failure. It took many days for his hematuria and clots to resolve. The patient has significant bladder spasms associated with this. At times his bladder was clamped down that it would actually obstruct Rivera flow. He did not require transfusion. He was eating poorly and drinking poorly before discharge. He was not on IV fluids. And creatinine bumped to 2.0 or baseline is 1.1. We gave him IV fluids and prompted him to please drink p.o. With that creatinine came down to 1.6 on the day of discharge. Baseline creatinine is 1.1 for him. We encouraged him to take home the fluid base and that we provide patients with here in the hospital. They are 500 cc. To drink at least 3 of those a day. We have explained to him that we do not know the source of his bleeding. We do not understand the mechanism of injury to cause the friable bladder tissue which then causes bleeding. He really needs to follow-up with urology. But he is saying that he prefers the care here than anywhere else. We have explained to him multiple times that we do not have urology service here. As such we have asked him to come to the emergency room if he has another episode of hemorrhagic cystitis so that he can be stabilized but we are looking to transfer not to admit. At discharge he was alert, oriented. Temperature 36.5. Heart rate 68. Blood pressure 125/51. He was not on carvedilol or amiodarone during his stay because of bradycardia. But we have asked him to resume his carvedilol if he gets tachycardia. Flomax and Hytrin will also be resumed for history of bladder spasm. We are asked him to continue with Levaquin until it is completed. Neck is supple. Lungs are clear. Regular rate and rhythm. Abdomen has mild suprapubic aching. Rivera has been discontinued for 48 hours now. No return of hematuria. Greater than 30 minutes was spent coordinating discharge. - ALLERGIES Allergies/Adverse Reactions: Allergies Allergy/AdvReac Type Severity Reaction Status Date / Time No Known Drug Allergies Allergy Verified 09/22/21 13:14 - MEDICATIONS Home Medications: Ambulatory Orders Medication Instructions Recorded Confirmed Aspirin Chewable [St Rodolfo 81 mg PO DAILY 04/24/19 09/22/21 Aspirin] lisinopriL [Prinivil] 10 mg PO DAILY 04/24/19 09/22/21 Acetaminophen 500 mg PO DAILY PRN 05/07/19 09/22/21 Amiodarone [Pacerone] 100 mg PO DAILY 05/07/19 09/22/21 Carvedilol [Coreg] 12.5 mg PO BID 05/07/19 09/22/21 Rosuvastatin Calcium [Crestor] 40 mg PO DAILY 05/07/19 09/22/21 Ferrous Gluconate [Fergon] 324 mg PO DAILYWM #30 tablet 10/03/21 Oxybutynin [Ditropan] 5 mg PO BID #60 tablet 10/03/21 Saccharomyces Boulardii [Florastor] 250 mg PO BIDWM 10/03/21 Tamsulosin [Flomax] 0.4 mg PO DAILY #30 cap 10/03/21 levoFLOXacin [Levaquin] 250 mg PO QD #14 tablet 10/03/21 - LABS Result Diagrams: 10/03/21 04:56 10/03/21 04:56 - SEPSIS Current Stage of Sepsis: Ruled out"
[2021-10-03 14:01] VITALS: BP 137/57
== END 2021-10-03 14:30 | disposition home or self-care (01) | DRG 690 ==
LOC: ED 12:59 → MS3 21:40 → OBSVTOIN 09-23 11:19
PROVIDERS: ADMIT Specialist; ATTEND Specialist
PROC: 30233N1 Transfusion of Nonautologous Red Blood Cells into Peripheral Vein, Percutaneous Approach (ICD-10-PCS; principal; 2021-09-24)
DX: N30.01 Acute cystitis with hematuria (principal); D62 Acute posthemorrhagic anemia; N17.9 Acute kidney failure, unspecified; I13.0 Hypertensive heart and chronic kidney disease with heart failure and stage 1 through stage 4 chronic kidney disease, or unspecified chronic kidney disease; I50.22 Chronic systolic (congestive) heart failure; N13.30 Unspecified hydronephrosis; I12.0 Hypertensive chronic kidney disease with stage 5 chronic kidney disease or end stage renal disease; Q61.01 Congenital single renal cyst; T45.526A Underdosing of antithrombotic drugs, initial encounter; N40.1 Benign prostatic hyperplasia with lower urinary tract symptoms; R33.8 Other retention of urine; R39.15 Urgency of urination; Z20.822 Contact with and (suspected) exposure to COVID-19; R35.0 Frequency of micturition; N18.31 Chronic kidney disease, stage 3a; E78.00 Pure hypercholesterolemia, unspecified; Z87.440 Personal history of urinary (tract) infections; K21.9 Gastro-esophageal reflux disease without esophagitis; N32.89 Other specified disorders of bladder; R77.8 Other specified abnormalities of plasma proteins; B95.61 Methicillin susceptible Staphylococcus aureus infection as the cause of diseases classified elsewhere; I49.5 Sick sinus syndrome; I95.9 Hypotension, unspecified; R00.1 Bradycardia, unspecified; I25.10 Atherosclerotic heart disease of native coronary artery without angina pectoris; I25.2 Old myocardial infarction; Z66 Do not resuscitate; Z79.82 Long term (current) use of aspirin; Z79.899 Other long term (current) drug therapy; Z91.128 Patient's intentional underdosing of medication regimen for other reason; Z95.5 Presence of coronary angioplasty implant and graft
CPT/HCPCS: 36415; 36430; 51700; 51702; 76770; 80048; 80053; 81001; 82607; 82728; 83540; 83615; 84466; 84484; 85014; 85018; 85025; 85027; 85045; 85610; 85730; 86850; 86900; 86901; 86920; 87077; 87086; 87181; 87631; 93005; 93306; 96365; 96375; 96376; 99284; 99285; A9270; J1170; P9016; 0202U; 81003

== ENCOUNTER 2022-10-05 09:45 | Outpatient (CLI) | payer MEDICARE, OTHER ==
[2022-10-05 18:00] LABS: ALBUMIN 3.6 g/dL (3.2-5.5); ALBUMIN/GLOBULIN RATIO 1.1 (1.0-2.2); ALKALINE PHOSPHATASE 58 IU/L (42-121); ALT ALANINE AMINOTRANSFERASE 15 IU/L (10-60); AST ASPARTATE AMINOTRANSFERASE 19 IU/L (10-42); BILIRUBIN,TOTAL 0.7 mg/dL (0.2-1.0); BUN - BLOOD UREA NITROGEN 17 mg/dL (6-20); CARBON DIOXIDE - CO2 24 mmol/L (21-32); CHLORIDE 103 mmol/L (101-111); CHOL/HDL RATIO 2.3 (<5.0); CHOLESTEROL 104 mg/dL; CREATININE 1.3 mg/dL (0.6-1.2); GFR - MDRD 54 (>89); GLUCOSE 91 mg/dL (70-100); HDL CHOLESTEROL 46 mg/dL; LDL CHOLESTEROL,CALCULATED 44 mg/dL; MAGNESIUM 1.9 mg/dL (1.7-2.8); POTASSIUM 4.5 mmol/L (3.5-5.0); SODIUM 140 mmol/L (135-145); TOTAL PROTEIN 6.9 g/dL (6.7-8.2); TRIGLYCERIDES 70 mg/dL; VLDL CHOLESTEROL 14 mg/dL
== END 2022-10-05 09:46 | disposition home or self-care (01) ==
LOC: LAB 09:45
PROVIDERS: ATTEND Nurse Practitioner
DX: I25.5 Ischemic cardiomyopathy (principal); I48.0 Paroxysmal atrial fibrillation
CPT/HCPCS: 36415; 80053; 80061; 83721; 83735

== ENCOUNTER 2023-01-14 10:01 | Emergency (ER) | payer MEDICARE, OTHER ==
--- NOTE | 2023-01-14 11:05 | ED Physician Documentation ---
PD HPI SKIN - Stated complaint Stated Complaint: LT LEG PX - Chief complaint Chief Complaint: Wound - History obtained from History obtained from: Patient - History of Present Illness Timing - onset: How many weeks ago (2) Timing - duration: Weeks (2) Timing - details: Gradual onset, Still present Location: LLE Quality / character: Painful, Burning, Swelling, Draining Associated symptoms: No: Fever, Myalgias, N/V/D Similar symptoms before: Diagnosis (has had celluitis and deeper tissue infection in the past requiring hospitalization and prolonged IV antibiotics. He states it was "flesh eating bacteria" but did not have any surgical intervention.) Recently seen: Not recently seen Review of Systems Constitutional: denies: Fever, Chills, Myalgias Nose: denies: Rhinorrhea / runny nose, Congestion Throat: denies: Sore throat Respiratory: denies: Cough PD PAST MEDICAL HISTORY - Past Medical History Cardiovascular: Hypertension, High cholesterol, AR (1st AR around 2009. Sees [address] Luis Salazar. No stress test done after NSTEMI 04/2021. 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) Cardiovascular: Coronary stent, Cardiac catheterization - Present Medications Home Medications: Ambulatory Orders Medication Instructions Recorded Confirmed Aspirin Chewable [St Rodolfo 81 mg PO DAILY 04/24/19 09/22/21 Aspirin] lisinopriL [Prinivil] 10 mg PO DAILY 04/24/19 09/22/21 Acetaminophen 500 mg PO DAILY PRN 05/07/19 09/22/21 Amiodarone [Pacerone] 100 mg PO DAILY 05/07/19 09/22/21 Carvedilol [Coreg] 12.5 mg PO BID 05/07/19 09/22/21 Rosuvastatin Calcium [Crestor] 40 mg PO DAILY 05/07/19 09/22/21 Ferrous Gluconate [Fergon] 324 mg PO DAILYWM #30 tablet 10/03/21 Oxybutynin [Ditropan] 5 mg PO BID #60 tablet 10/03/21 Saccharomyces Boulardii [Florastor] 250 mg PO BIDWM 10/03/21 Tamsulosin [Flomax] 0.4 mg PO DAILY #30 cap 10/03/21 levoFLOXacin [Levaquin] 250 mg PO QD #14 tablet 10/03/21 Doxycycline Hyclate 100 mg PO BID 7 Days #14 cap 01/14/23 HYDROcod/ACETAM 5/325 [Luck 5/325] 1 ea PO Q6H PRN #12 tablet 01/14/23 Mupirocin 2% Oint [Bactroban 2% 1 applic TOP TID #15 gm 01/14/23 Oint] cephALEXin [Keflex] 500 mg PO QID #28 cap 01/14/23 - Allergies Allergies/Adverse Reactions: Allergies Allergy/AdvReac Type Severity Reaction Status Date / Time codeine Allergy Unknown Verified 01/14/23 10:25 - Social History Does the pt smoke?: No Smoking Status: Former smoker Does the pt drink ETOH?: Yes Does the pt have substance abuse?: No - Immunizations Immunizations are current?: Yes - POLST Patient has POLST: No POLST Status: DNR (He wants all interventions done for any illness until he stops breathing or his heart stops and then he does not want chest compressions or intubation for cardiopulmonary arrest) PD ED PE NORMAL - Vitals Vital signs reviewed: Yes - General General: Alert and oriented X 3, No acute distress, Well developed/nourished - Cardiac Cardiac: RRR, No murmur - Respiratory Respiratory: Clear bilaterally - Abdomen Abdomen: Soft, Non tender - Derm Derm: Normal color, Warm and dry - Extremities Extremities: Other (left lower leg anteiroly with demarcated area of redness, swelling and superficial erosion of partial skin layers. No fatty tissue exposure. Mildly tender deeper palpation. Very tender surface. Rash extends medial side and some posterior. ) - Neuro Neuro: Alert and oriented X 3, No motor deficit, No sensory deficit, Normal speech, Other (normal color and cap refill in toes. Good DP pulse. ) Results - Vitals Vitals: Oxygen O2 Source Room air - Labs Labs: Microbiology 01/14/23 12:19 Blood Culture - Preliminary Blood NO GROWTH AFTER 1 DAY 01/14/23 11:52 Blood Culture - Preliminary Blood NO GROWTH AFTER 1 DAY 01/14/23 11:33 Wound Culture - Preliminary Leg - Left Laboratory Tests 01/14/23 01/14/23 01/14/23 11:35 11:52 11:52 WBC 6.6 RBC 4.69 L Hgb 12.7 L Hct 39.9 L MCV 85.1 MCH 27.1 MCHC 31.8 L RDW 14.7 Plt Count 136 MPV 9.9 Neut # (Auto) 4.9 Lymph # (Auto) 0.9 L [place] # (Auto) 0.5 Eos # (Auto) 0.3 Baso # (Auto) 0.0 Absolute Nucleated RBC 0.00 Nucleated RBC % 0.0 Sodium 137 Potassium 4.7 Chloride 102 Carbon Dioxide 25 Anion Gap 10.0 BUN 18 Creatinine 1.3 H Estimated GFR (MDRD) 54 L Glucose 109 H Lactic Acid 0.8 Calcium 8.8 Total Bilirubin 0.7 AST 19 ALT 18 Alkaline Phosphatase 65 Total Creatine Kinase 71 Total Protein 7.8 Albumin 3.7 Globulin 4.1 Albumin/Globulin Ratio 0.9 L Lipase 38 - Rads (name of study) tib/fib xray Relevant Findings:: Prelim report reviewed, EMP independent interpretation of test (no fracvtures, no bony erosions, no subcut air. ), See rad report PD Medical Decision Making - ED course Complexity details: reviewed results (CK is normal as is WBC, c/w not involving muscle later (no myositis eveident). No signs of extended infection (no fever, normal lactate, no constintuional symptoms). I feel can treat outpatient safely at this time. To cover staph/strep mainly so double antibiotics. ), considered differential, d/w patient Departure - Departure Disposition: 01 Home, Self Care Clinical Impression: Lower extremity cellulitis Qualifiers: Laterality: left Qualified Code(s): L03.116 - Cellulitis of left lower limb Condition: Stable Record reviewed to determine appropriate education?: Yes Instructions: ED Infec Skin Cellulitis Follow-Up: JUAN RAY PA-C [Primary Care Provider] - Prescriptions: Mupirocin 2% Oint [Bactroban 2% Oint] 1 applic TOP TID #15 gm Doxycycline Hyclate 100 mg PO BID 7 Days #14 cap cephALEXin [Keflex] 500 mg PO QID #28 cap HYDROcod/ACETAM 5/325 [Luck 5/325] 1 ea PO Q6H PRN #12 tablet PRN Reason: Pain Comments: You obviously have the skin infection on the leg which involves the skin and just under the skin (cellulitis). We did do a culture of it and the culprit germ should have identify on the results in the next couple of days and we can modify the antibiotic choice based on the culture results. At this point with the x-ray and blood test, there is no signs of deeper involvement of the infection. To begin with we will treat with 2 antibiotics to cover the most common germs. Cephalexin and doxycycline as directed for the next week. Cleanse the area with soap and water or very dilute peroxide and water twice daily and apply mupirocin antibiotic ointment and then dressing over it. Use Tylenol every 4-6 hours if needed for pain or hydrocodone if needed for worse pain, particularly at night. I sent prescriptions to [facility] pharmacy in [place]. Recheck if not improving well over the next several days and return if worsening. Follow-up with your primary care. Call for an appointment for early next week. I am prescribing a short course of narcotic pain medication for you. These are potentially dangerous and addictive medications that should be used carefully. These medications may constipate you. Take an [id number] stool softener such as docusate twice daily with plenty of water while taking these medications. If you go 24 hours without a bowel movement, take [id number] MiraLAX, per package instructions. Do not drink or drive while taking these medications. If you received narcotic or sedating medications while in the emergency department do not drive for 24 hours. Store this medication in a safe, secure place and out of reach of children. It is a violation of federal law to give or sell this medication to another person or to use in a manner other than prescribed. The ED will not refill narcotic prescriptions, including prescriptions lost or stolen. You can dispose of unwanted medications at the [facility]'s office or at several pharmacies such as [facility]. Discharge Date/Time: 01/14/23 14:02
[2023-01-14] MEDS ORDERED: DOXYCYCLINE 100 MG TABLET PO STA (11:38)
[2023-01-14] MEDS ORDERED: cefTRIAXone 1 GM VIAL IVP STA (11:38)
[2023-01-14 12:00] LABS: BASOPHILS % (AUTO) 0.5 %; EOSINOPHILS # (AUTO) 0.3 10^3/uL (0.0-0.7); EOSINOPHILS % (AUTO) 3.9 %; HCT - HEMATOCRIT 39.9 % (42.0-52.0); HGB - HEMOGLOBIN 12.7 g/dL (14.0-18.0); LYMPHOCYTES # (AUTO) 0.9 10^3/uL (1.5-3.5); LYMPHOCYTES % (AUTO) 13.5 %; MEAN CORPUSCULAR HEMOGLOBIN 27.1 pg (27.0-31.0); MEAN CORPUSCULAR HGB CONC 31.8 g/dL (32.0-36.0); MEAN CORPUSCULAR VOLUME 85.1 fL (80.0-94.0); MEAN PLATELET VOLUME 9.9 fL (7.4-11.4); MONOCYTES # (AUTO) 0.5 10^3/uL (0.0-1.0); MONOCYTES % (AUTO) 8.2 %; NEUTROPHILS # (AUTO) 4.9 10^3/uL (1.5-6.6); NEUTROPHILS % (AUTO) 73.6 %; PLT - PLATELET COUNT 136 10^3/uL (130-450); RED BLOOD COUNT 4.69 10^6/uL (4.70-6.10); RED CELL DISTRIBUTION WIDTH 14.7 % (12.0-15.0); WHITE BLOOD COUNT 6.6 x10^3/uL (4.8-10.8)
--- NOTE | 2023-01-14 12:02 | XRAY Report ---
PROCEDURE: Tib/Fib LT INDICATIONS: infection lower leg TECHNIQUE: 2 views of the tibia and fibula were acquired. COMPARISON: None. FINDINGS: Bones: No fractures or dislocations. No suspicious bony lesions. No bony erosion. Soft tissues: No suspicious soft tissue calcifications or masses. No subcutaneous gas. IMPRESSION: No subcutaneous gas. No bony erosion. Reviewed by: Brijesh Collins on 01/14/2023 12:00 PM PDT Approved by: Brijesh Collins on 01/14/2023 12:00 PM PDT Station ID: [id number]
[2023-01-14 12:17] LABS: ALBUMIN 3.7 g/dL (3.2-5.5); ALBUMIN/GLOBULIN RATIO 0.9 (1.0-2.2); BILIRUBIN,TOTAL 0.7 mg/dL (0.2-1.0); CALCIUM 8.8 mg/dL (8.5-10.3); CREATININE 1.3 mg/dL (0.6-1.2); POTASSIUM 4.7 mmol/L (3.5-5.0); TOTAL PROTEIN 7.8 g/dL (6.7-8.2)
[2023-01-14] MEDS ORDERED: MUPIROCIN 2% OINT 1 GM TOP STA (12:33)
[2023-01-14] MEDS ORDERED: KETOROLAC 15 MG/ML VIAL IVP STA (12:33)
[2023-01-14] MEDS ORDERED: HYDROmorphone 0.5 MG/0.5 ML SYRINGE IVP STA (12:34)
[2023-01-14 13:24] VITALS: BP 152/79
== END 2023-01-14 14:02 | disposition home or self-care (01) ==
LOC: ED 10:01
DX: L03.116 Cellulitis of left lower limb (principal); Z87.891 Personal history of nicotine dependence; Z66 Do not resuscitate
CPT/HCPCS: 36415; 73590; 80053; 82550; 83605; 83690; 85025; 87040; 87070; 87077; 87181; 87205; 96374; 96375; 99284; A9270; J1170